=== PATIENT | female | born 1965 | race Caucasian/White ===

== ENCOUNTER 2017-10-10 12:24 | Day surgery (SDC) | payer MEDICAID, SELFPAY ==
[2017-10-10 12:45] VITALS: BP 149/88; PULSE 87; RESP 17; O2SAT 98; BMI 32.9
[2017-10-10 13:18] VITALS: BP 140/78; PULSE 82; RESP 18; O2SAT 99
[2017-10-10 13:22] VITALS: BP 136/92; PULSE 85; RESP 20; O2SAT 97
[2017-10-10 13:23] VITALS: BP 143/89; PULSE 87; RESP 18; O2SAT 96
--- NOTE | 2017-10-10 14:23 | HMH.PMPROC ---
- Procedure Date: 10/10/17 Time: 14:23 Anesthesiologist:: Jamie Capone MD Complications:: None Pre-procedure Diagnosis:: Degenerative disc disease of cervical spine with cervical radiculopathy symptoms and cervical postlaminectomy syndrome Post-procedure Diagnosis:: Same Indications for Procedure:: This patient is a pleasant 51-year-old white female who we are treating for neck pain with some radiculopathy symptoms. She is doing very well with her intrathecal pain pump. Motor strength of the upper extremities is 5/5. There is no gross sensory deficit. She does have a normal gait. She does have some increasing pain with increased activity. We will refill her pump and increase her infusion today. Procedure Details:: Informed consent was obtained and the risks and benefits of the procedure was explained to the patient. The patient was taken to the procedure room. The pump was interrogated. The area over the pump was prepped using ChloraPrep. The pump was accessed with a 22-gauge needle. Approximately 8 mL's of the intrathecal solution was withdrawn and discarded. The pump was then refilled with 20 mL's of intrathecal Dilaudid 5 mg/mL. The pump was interrogated and the infusion was increased to 0.55 mg per day. The patient tolerated the procedure well with no complication. Plan and Disposition:: We will follow-up with her in 3-4 months for next pump refill. If she has any problems or questions she is to call us in the pain clinic.
== END 2017-10-10 13:19 | disposition home or self-care (01) ==
LOC: SC.PAINP 12:26
PROVIDERS: Family Provider Emergency Medicine; PCP Emergency Medicine; Visit Provider Nurse Anesthetist, Certified Registered
DX: M50.30 Other cervical disc degeneration, unspecified cervical region (principal); M96.1 Postlaminectomy syndrome, not elsewhere classified
CPT/HCPCS: 62370

== ENCOUNTER → 2017-11-12 09:56 | Outpatient (POV) | payer MEDICAID, SELFPAY ==
[2017-11-12 10:02] VITALS: BP 127/88; PULSE 78; RESP 16; O2SAT 97; BMI 32.9
--- NOTE | 2017-11-12 10:51 | HMH.PAINSOAP ---
[facility] Pain Management SOAP Note Subjective:: Patient is a pleasant 52-year-old white female who presents today to discuss swelling. Patient has had a pain pump for several months. Patient has been doing very well and her pain is very well controlled. Patient rates her pain a 4-10 today. Patient's current medication is Dilaudid 0.55 mg a day. Patient states that over the last 3 months she is noted swelling bilaterally in her legs. Patient has not gone to her PCP about this. Patient states that nothing aggravates the symptoms But elevation has not relieved the swelling. ROS General: no recent weight change, no fever, no sleep disturbances Respiratory: no cough, asthma, no recurring pulmonary infections Cardiovascular/Peripheral Vascular: No chest pain, No palpitations, 1+ edema bilateral lower extremities, no shortness of breath. Gastrointestinal: no incontinence, normal bowel movements reported Genitourinary: no incontinence Musculoskeletal: neck pain Psychiatric: normal mood/ affect Neurological: [denies weakness in extremities], [denies balance issues] Objective:: Physical Exam General: Alert and oriented x3, no acute distress, pleasant and cooperative, [on room air] Lungs: Resps E/U, Symmetrical chest expansion Musculoskeletal: Flexion and extension of lumbar spine somewhat guarded secondary to pain, deep tendon reflexes normal, strength in upper and lower extremities [5/5], normal gait noted Neurological: speech clear, emergency medicine medical director equal, no gross sensory deficits Cardiovascular/Peripheral Vascular: No chest pain, No palpitations, 1+ edema bilateral lower extremities, no shortness of breath. negative Homans sign Assessment:: Degenerative disc disease of cervical spine with cervical radiculopathy, cervical postlaminectomy syndrome Plan:: Patient is doing well with her pump settings at this time. I like her to go to her primary care provider to do some additional testing with this current swelling. Patient states she does have a heart history in her family. I will give the patient Lasix 20 mg once daily for 4 days help with some comfort prior to her PCP visit. I discussed signs and symptoms of DVT. Patient states she will watch out for this she will also make an appointment with her primary care provider as soon as possible. We will follow-up with her at her next refill.
--- NOTE | 2017-11-12 10:54 | P.CONS_ITS ---
[facility] Pain Management SOAP Note Subjective:: Patient is a pleasant 52-year-old white female who presents today to discuss swelling. Patient has had a pain pump for several months. Patient has been doing very well and her pain is very well controlled. Patient rates her pain a 4-10 today. Patient's current medication is Dilaudid 0.55 mg a day. Patient states that over the last 3 months she is noted swelling bilaterally in her legs. Patient has not gone to her PCP about this. Patient states that nothing aggravates the symptoms But elevation has not relieved the swelling. ROS General: no recent weight change, no fever, no sleep disturbances Respiratory: no cough, asthma, no recurring pulmonary infections Cardiovascular/Peripheral Vascular: No chest pain, No palpitations, 1+ edema bilateral lower extremities, no shortness of breath. Gastrointestinal: no incontinence, normal bowel movements reported Genitourinary: no incontinence Musculoskeletal: neck pain Psychiatric: normal mood/ affect Neurological: [denies weakness in extremities], [denies balance issues] Objective:: Physical Exam General: Alert and oriented x3, no acute distress, pleasant and cooperative, [ on room air] Lungs: Resps E/U, Symmetrical chest expansion Musculoskeletal: Flexion and extension of lumbar spine somewhat guarded secondary to pain, deep tendon reflexes normal, strength in upper and lower extremities [5/5], normal gait noted Neurological: speech clear, 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 negative Homans sign Assessment:: Degenerative disc disease of cervical spine with cervical radiculopathy, cervical postlaminectomy syndrome Plan:: Patient is doing well with her pump settings at this time. I like her to go to her primary care provider to do some additional testing with this current swelling. Patient states she does have a heart history in her family. I will give the patient Lasix 20 mg once daily for 4 days help with some comfort prior to her PCP visit. I discussed signs and symptoms of DVT. Patient states she will watch out for this she will also make an appointment with her primary care provider as soon as possible. We will follow-up with her at her next refill.
[2017-11-12 13:24] LABS: Amphetamine/Metha Screen,Urine Negative ng/mL (<1000); Barbiturates Screen,Urine Negative ng/mL (<200); Benzodiazepines Screen,Urine Negative ng/mL (200); Cannabinoid Screen,Urine Negative ng/mL (<50); Cocaine Screen,Urine Negative ng/g (<300); Methadone Screen,Urine Negative ng/mL (<300); Opiate Screen,Urine Positive ng/mL (<300); Phencyclidine Screen,Urine Negative ng/mL (<25)
--- NOTE | 2017-11-12 15:14 | PC.PHONENOTE ---
Rx for lasix 20mg daily for 4 days called in to pt pharmacy per provider order
[2017-11-18 16:13] LABS: Codeine Negative (Cutoff=100); Hydrocodone Negative (Cutoff=100); Hydromorphone Positive (.); Morphine Negative (Cutoff=100)
[2017-11-18 17:15] LABS: Opiates Positive (.)
== END ==
PROVIDERS: Family Provider Emergency Medicine; PCP Emergency Medicine; Visit Provider Clinical Nurse Specialist Family Health
DX: M54.12 Radiculopathy, cervical region (principal)
CPT/HCPCS: 99212; 80305; 80361; 80365; G0480

== ENCOUNTER → 2017-12-10 14:48 | Outpatient (REF) | payer MEDICAID, SELFPAY ==
[2017-12-10 18:29] LABS: Basophils % 0.7 % (0.1-2.0); Eosinophils # 0.2 K/mm3 (0.0-0.4); Hematocrit 45.8 % (37.0-47.0); Hemoglobin 15.5 g/dL (12.2-16.2); Lymphocytes # 2.5 K/mm3 (0.7-4.5); Lymphocytes % 42.7 K/mm3 (10-50); Mean Corpuscular HGB Conc 33.7 g/dL (31.8-35.4); Mean Corpuscular Hemoglobin 30.2 pg (27.0-31.2); Mean Corpuscular Volume 89.6 fl (81-99); Mean Platelet Volume 7.9 fl (7.4-10.4); Monocytes # 0.4 K/mm3 (0.1-1.0); Monocytes % 6.3 % (1.7-9.3); Neutrophils # 2.8 K/mm3 (1.8-7.8); Neutrophils % 47.3 % (37.0-80.0); Platelet Count 291 K/mm3 (142-424); Red Blood Count 5.12 M/mm3 (4.20-5.40); Red Cell Distribution Width 13.5 % (11.5-17.5); White Blood Count 5.9 K/mm3 (4.8-10.8)
[2017-12-10 19:23] LABS: Alanine Aminotransferase 48 U/L (12-78); Albumin Level 3.7 gm/dL (3.4-5.0); Albumin/Globulin Ratio 1.1 (1.1-1.8); Alkaline Phosphatase 95 U/L (46-116); Anion Gap 11.9 mEq/L (5-15); Aspartate Amino Transferase 22 U/L (15-37); Bilirubin,Total 0.3 mg/dL (0.2-1.0); Blood Urea Nitrogen 9 mg/dL (7-18); Carbon Dioxide 29 mmol/L (21.0-32.0); Chloride 105 mmol/L (98-107); Creatinine,Serum 0.65 mg/dL (0.55-1.02); Estimated Glomerular Filt Rate 96 ml/min (>60); Free T4 (Free Thyroxine) 0.94 ng/dl (0.76-1.46); GFR (African American) 116 ML/MIN (>60); Globulin 3.3 gm/dl (1.3-3.2); Glucose 81 mg/dL (74-106); Potassium 3.9 mmoL/L (3.5-5.1); Sodium 142 mmol/L (136-145); Thyroid Stimulating Hormone 8.35 uIU/ml (0.358-3.740)
== END ==
LOC: LAB 14:48
PROVIDERS: Visit Provider Emergency Medicine
DX: M79.89 Other specified soft tissue disorders (principal); Z12.11 Encounter for screening for malignant neoplasm of colon; K21.9 Gastro-esophageal reflux disease without esophagitis
CPT/HCPCS: 80053; 84439; 84443; 85025

== ENCOUNTER → 2017-12-27 09:15 | Outpatient (CLI) | payer MEDICAID, SELFPAY ==
--- NOTE | 2017-12-27 09:18 | MM_ITS ---
MM Dig screening mamm BI w/CAD CAD Screening ORDERING PHYSICIAN : German Walter MD PATIENT AGE: 52 years GENDER: Femal INDICATION: No hormones no new complaints Family history: Sr. with breast cancer in her 40s. Paternal aunt postmenopausal TECHNIQUE: Standard CC and MLO images were obtained. R2 CAD reviewed. COMPARISON: No previous BASELINE MAMMOGRAM. FINDINGS: Minimal to moderate breast density . Mild/moderate fibroglandular elements most evident at the anterior central breast extending mainly towards upper-outer quadrant No dominant mass in either breast. RIGHT BREAST:Small loose cluster of fairly punctate calcifications at the upper outer quadrant right breast LEFT BREAST:. Numerous scattered small and tiny punctate calcifications are seen basically extending from superior retroareolar region towards upper-outer quadrant left breast. The generally diffuse scattered character here most likely reflecting adenosis, although there are numerous tiny calcifications also seen in these areas with defecation views. No branching forms. Because of the latter tiny calcifications a would suggest the patient return for CC and 90 degree large paddle 1.5 magnification views better characterize & serve as a baseline reference. On also note that some tiny punctate calcifications also extending medial on the cc view which may be included as well ====IMPRESSION========= . No dominant nor suspicious mass. LEFT BREAST: However there are innumerable small punctate calcification seen throughout the left breast. These tiny calcifications most likely reflect benign adenosis but given the numerous very tiny background calcifications, I would suggest magnification views to further evaluate RIGHT BREAST: Also note Small cluster of punctate calcifications upper-outer quadrant right breast. These appear Benign but would also benefit from magnification views when the patient returns BI-RADS Category: 0 Need Additional Imaging Evaluaiton RECOMMENDED FOLLOW-UP: IMM - IMMEDIATE FOLLOW-UP RECOMMENDED (A letter has been sent to the patient regarding results of the study.)
== END ==
PROVIDERS: Family Provider Emergency Medicine; PCP Emergency Medicine; Visit Provider Emergency Medicine
DX: Z12.31 Encounter for screening mammogram for malignant neoplasm of breast (principal)
CPT/HCPCS: 77067

== ENCOUNTER → 2018-01-08 14:26 | Outpatient (CLI) | payer MEDICAID, SELFPAY ==
--- NOTE | 2018-01-08 14:28 | MM_ITS ---
MM Dig spot mag LT COMPARISON: 12/27/2017 INDICATION: Follow-up abnormal mammogram ORDERING PHYSICIAN: German Walter MD PATIENT AGE: 52 years TECHNIQUE: Problem-solving views of both breasts FINDINGS: Right breast: Scattered foci of calcification are noted. The cluster of calcifications in the upper outer aspect of the right breast probably benign. Loosely clustered calcifications noted in the left breast the upper outer aspect having a smudgy appearance likely due to adenosis. Well-circumscribed nodular opacity is noted in the outer left breast measuring 5 mm and within the medial aspect of left breast also a 5 mm. These are probably benign. There was an additional 9 mm opacity in the lateral aspect of the left breast. Ultrasound is suggested of these nodules. IMPRESSION: Bilateral calcifications appear probably benign. There are 3 densities of the left breast the largest in the upper outer aspect at 9 mm. Ultrasound recommended. BI-RADS Category: 0 Need Additional Imaging Evaluation RECOMMENDED FOLLOW-UP: IMM - IMMEDIATE FOLLOW-UP RECOMMENDED Suggest ultrasound left breast and bilateral 6 month mammographic follow-up concerning the calcifications (A letter has been sent to the patient regarding results of the study.)
== END ==
PROVIDERS: Family Provider Emergency Medicine; PCP Emergency Medicine; Visit Provider Emergency Medicine
DX: R92.8 Other abnormal and inconclusive findings on diagnostic imaging of breast (principal)
CPT/HCPCS: 77065; 77066

== ENCOUNTER → 2018-02-01 14:32 | Outpatient (CLI) | payer MEDICAID, SELFPAY ==
--- NOTE | 2018-02-01 14:33 | US_ITS ---
US breast LT complete INDICATION: Follow-up abnormal mammogram ORDERING PHYSICIAN: NATY Guzmán PATIENT AGE: 52 years COMPARISON: 01/08/2018 TECHNIQUE: Ultrasound performed the left breast and axilla FINDINGS: 1:00 there is a 4 x 2 mm hypoechoic area. At 2:00 there is a 7 x 7 mm hypoechoic area. At 10:00 there is a 4 mm hypoechoic region. These areas are probably related to cysts. There are some low-level echoes within the abnormalities however may be related to the technique. There is enhanced through transmission of sound. No suspicious nodules evident IMPRESSION: Hypoechoic abnormalities of the left breast as described above compatible with cysts. There are some low level echoes within these regions but may related to the technique. On the mammogram there was a 9 mm nodular opacity in the lateral aspect of the left breast probably related to overlapping fibroglandular tissue as there did appear to be some interspersed fat in this area. BI-RADS Category: 3 Benign Finding Short Term Follow-up RECOMMENDED FOLLOW-UP: 6M - 6 MONTH FOLLOW-UP Recommend 6 month sonographic and mammographic follow-up in June 2018 (A letter has been sent to the patient regarding results of the study.)
== END ==
PROVIDERS: Family Provider Emergency Medicine; PCP Emergency Medicine; Visit Provider Physician Assistant
DX: R92.8 Other abnormal and inconclusive findings on diagnostic imaging of breast (principal)
CPT/HCPCS: 76641

== ENCOUNTER → 2018-03-04 15:00 | Outpatient (POV) | payer MEDICAID, SELFPAY ==
--- NOTE | 2018-03-04 15:42 | HMH.PMPROC ---
- Procedure Date: 03/04/18 Time: 15:30 Anesthesiologist:: Beverly Ross APRN Complications:: None Pre-procedure Diagnosis:: Degenerative disc disease of the cervical spine with cervical radiculopathy cervical postlaminectomy syndrome Post-procedure Diagnosis:: Same Indications for Procedure:: Patient is a pleasant 52-year-old white female who presents today for her thecal pain pump adjustment. Patient is doing quite well on her intrathecal infusion of Dilaudid at 0.55 mg per day. However lately she has had increasing pain. She rates her pain a 7 out of 10 today. Patient states that this occurred about a week ago. Patient does have relief with her boluses. We will increase her today. Patient denies side effects to the medication. Physical Exam General: Alert and oriented x3, no acute distress, pleasant and cooperative, [on room air] Lungs: Resps E/U, Symmetrical chest expansion, Eyes: PERRL Musculoskeletal: Flexion and extension of cervical spine somewhat guarded secondary to pain, deep tendon reflexes normal, strength in upper and lower extremities [5/5], slightly antalgic gait Neurological: speech clear, competitive intelligence manager equal, no gross sensory deficits Procedure Details:: Informed consent was obtained and the risk and benefits of the procedure were explained to the patient. The patient was taken to the procedure room where noninvasive monitoring was placed including noninvasive blood pressure cuff and pulse oximeter. Patient's pump was interrogated. The infusion rate was increased to 0.7 mg per day and the boluses increased to 0.07 mg per activation with a total of 4 activations allowed today. The patient tolerated the procedure well. Plan and Disposition:: I will follow-up with this patient at her next pain pump refill. Patient has been instructed to call the office she has any issues prior to her next appointment. This note was dictated using voice recognition software and may contain errors or omissions
--- NOTE | 2018-03-04 15:45 | P.PCN_ITS ---
- Procedure Date: 03/04/18 Time: 15:30 Anesthesiologist:: Beverly Ross APRN Complications:: None Pre-procedure Diagnosis:: Degenerative disc disease of the cervical spine with cervical radiculopathy cervical postlaminectomy syndrome Post-procedure Diagnosis:: Same Indications for Procedure:: Patient is a pleasant 52-year-old white female who presents today for her thecal pain pump adjustment. Patient is doing quite well on her intrathecal infusion of Dilaudid at 0.55 mg per day. However lately she has had increasing pain. She rates her pain a 7 out of 10 today. Patient states that this occurred about a week ago. Patient does have relief with her boluses. We will increase her today. Patient denies side effects to the medication. Physical Exam General: Alert and oriented x3, no acute distress, pleasant and cooperative, [ on room air] Lungs: Resps E/U, Symmetrical chest expansion, Eyes: PERRL Musculoskeletal: Flexion and extension of cervical spine somewhat guarded secondary to pain, deep tendon reflexes normal, strength in upper and lower extremities [5/5], slightly antalgic gait Neurological: speech clear, quality worker equal, no gross sensory deficits Procedure Details:: Informed consent was obtained and the risk and benefits of the procedure were explained to the patient. The patient was taken to the procedure room where noninvasive monitoring was placed including noninvasive blood pressure cuff and pulse oximeter. Patient's pump was interrogated. The infusion rate was increased to 0.7 mg per day and the boluses increased to 0.07 mg per activation with a total of 4 activations allowed today. The patient tolerated the procedure well. Plan and Disposition:: I will follow-up with this patient at her next pain pump refill. Patient has been instructed to call the office she has any issues prior to her next appointment. This note was dictated using voice recognition software and may contain errors or omissions
== END ==
PROVIDERS: Family Provider Emergency Medicine; PCP Emergency Medicine; Visit Provider Clinical Nurse Specialist Family Health
DX: M54.12 Radiculopathy, cervical region (principal)
CPT/HCPCS: 95991

== ENCOUNTER → 2018-03-06 11:13 | Outpatient (REF) | payer MEDICAID, SELFPAY ==
[2018-03-06 13:40] LABS: Free T4 (Free Thyroxine) 0.93 ng/dl (0.76-1.46); Thyroid Stimulating Hormone 6.41 uIU/ml (0.358-3.740)
== END ==
LOC: LAB 11:13
PROVIDERS: Visit Provider Emergency Medicine
DX: E03.9 Hypothyroidism, unspecified (principal); E07.9 Disorder of thyroid, unspecified
CPT/HCPCS: 84439; 84443

== ENCOUNTER → 2018-07-11 13:25 | Outpatient (CLI) | payer MEDICAID, SELFPAY ==
--- NOTE | 2018-07-11 13:26 | MM_ITS ---
MM Dig mamm BI DX w/CAD, US breast RT complete, US breast LT complete INDICATION: Follow-up abnormal mammogram ORDERING PHYSICIAN: German Walter MD PATIENT AGE: 52 years COMPARISON: 02/08 and 01/08/2018 TECHNIQUE: Standard images performed along with spot compression mag views and bilateral breast ultrasound FINDINGS: Right breast: Average fibroglandular tissue. Loosely clustered calcifications are once again noted in the upper outer aspect of the right breast.. These do not appear significantly changed. There is a small nodular opacity in the medial aspect of the right breast which didn't appear to compress out on spot compression view Right breast ultrasound: 4 mm x 7 mm complex cyst at 1:00 near the nipple. Small nodes in the right axilla. Left breast: Asymmetric retroareolar density once again noted and does not appear significantly changed. Benign-appearing calcifications are once again noted in the retroareolar region. There is persistent 9 mm nodular opacity in the outer aspect of the left breast. Similar to the previous exam. In addition, there is a benign-appearing rounded 4 mm nodule in the lateral periareolar region.. Left breast ultrasound: 5 mm cyst at 1:00 near the nipple corresponding to one of the mammographic abnormalities. 4 mm cyst at 3:00, 4 mm cyst at 4:00, 9 mm hypoechoic nodule at 9:00 probably due to small cyst In addition, there is an 8 x 4 mm septated cyst at 3:00 corresponding to the mammographic abnormality IMPRESSION: Probably Benign findings, no evidence of malignancy. Bilateral breast cysts and bilateral benign-appearing calcifications which appear stable. Complex cyst lateral aspect of left breast felt to correspond to the nodule in the lateral aspect of left breast which are stable mammographically BI-RADS Category: 3 Probably Benign Finding Short Term Follow-up RECOMMENDED FOLLOW-UP: 6M - 6 MONTH FOLLOW-UP (A letter has been sent to the patient regarding results of the study.)
== END ==
PROVIDERS: Family Provider Emergency Medicine; PCP Emergency Medicine; Visit Provider Emergency Medicine
DX: R92.8 Other abnormal and inconclusive findings on diagnostic imaging of breast (principal)
CPT/HCPCS: 76641; 77066

== ENCOUNTER → 2018-10-15 13:21 | Outpatient (CLI) | payer MEDICAID, SELFPAY ==
[2018-10-15 14:50] LABS: Alanine Aminotransferase 58 U/L (12-78); Albumin Level 3.8 gm/dL (3.4-5.0); Albumin/Globulin Ratio 1.1 (1.1-1.8); Alkaline Phosphatase 101 U/L (46-116); Anion Gap 12.9 mEq/L (5-15); Aspartate Amino Transferase 32 U/L (15-37); Bilirubin,Total 0.8 mg/dL (0.2-1.0); Blood Urea Nitrogen 11 mg/dL (7-18); Calcium 9.4 mg/dL (8.5-10.1); Carbon Dioxide 30 mmol/L (21.0-32.0); Chloride 101 mmol/L (98-107); Cholesterol 186 mg/dL (140-200); Estimated Glomerular Filt Rate 75 ml/min (>60); GFR (African American) 91 ML/MIN (>60); Globulin 3.6 gm/dl (1.3-3.2); Glucose 100 mg/dL (74-106); HDL Cholesterol 46 mg/dL (29-89); LDL Cholesterol 119 mg/dL (0-130); Potassium 3.9 mmoL/L (3.5-5.1); Sodium 140 mmol/L (136-145); Thyroid Stimulating Hormone 53.97 uIU/ml (0.358-3.740); Total Protein,Serum 7.4 gm/dL (6.4-8.2); Triglycerides 106 mg/dL (30-200); VLDL Cholesterol 21 mg/dL (0-40)
== END ==
PROVIDERS: Visit Provider Nurse Practitioner Family
DX: M79.89 Other specified soft tissue disorders (principal); R06.02 Shortness of breath
CPT/HCPCS: 80053; 80061; 82652; 83880; 84443

== ENCOUNTER → 2018-12-12 13:52 | Outpatient (CLI) | payer MEDICAID, SELFPAY ==
[2018-12-12 15:07] LABS: Thyroid Stimulating Hormone 5.19 uIU/ml (0.358-3.740)
== END ==
PROVIDERS: Visit Provider Nurse Practitioner Family
DX: E03.9 Hypothyroidism, unspecified (principal)
CPT/HCPCS: 84443

== ENCOUNTER → 2019-01-08 07:15 | Outpatient (CLI) | payer MEDICAID, SELFPAY ==
--- NOTE | 2019-01-08 07:16 | NM_ITS ---
CARDIOLITE SPECT MYOCARDIAL PERFUSION LEXISCAN, REST AND STRESS: [facility] REVIEW QGS EF AND WALL MOTION EVALUATION: QPS - PERFUSION EVALUATION HISTORY: Chest pain, SOB, Palpitations, Syncope, Fatigue, HTN, Former smoker, Family history DOSE: 10.26 mCi technetium 99m mibi intravenously at rest followed by 32.4 mCi technetium 99m mibi following the intravenous ministration of 0.4 mg of Lexiscan. Resting blood pressure is 128/66. Stress blood pressure 129/79. FINDINGS: Ejection fraction is calculated to be 69%. Decreased myocardial activity in the anterior wall with both stress and rest. Gated images calculated ejection fraction of 69% with normal wall motion IMPRESSION: Although this test is consistent with breast attenuation clinical correlation is still advised. Normal ejection fraction normal wall motion
--- NOTE | 2019-01-08 08:11 | HMH.ITSHM ---
Current Home Medications as stated by this patient Zenaida Jarvis or sales representative uniforms. []BUPROPION LEVOTHYROXINE FUROSEMIDE LISINOPRIL
== END ==
PROVIDERS: PCP Emergency Medicine; Visit Provider Internal Medicine
DX: R06.02 Shortness of breath (principal); R60.9 Edema, unspecified; I10 Essential (primary) hypertension; Z82.49 Family history of ischemic heart disease and other diseases of the circulatory system
CPT/HCPCS: 78452; 93017; 93306; A9502; J2785

== ENCOUNTER → 2019-01-10 13:18 | Outpatient (CLI) | payer MEDICAID, SELFPAY ==
--- NOTE | 2019-01-10 13:19 | US_ITS ---
US breast RT complete, US breast LT complete, MM Dig mamm BI DX w/CAD Ordering Physician: Amber Johnson APRN Patient Age: 53 years: Female HISTORY: ITS.REASON: 6 mth f/u TECHNIQUE 1. Bilateral digital mammogram, with Spot magnification views left breast 2. Bilateral breast ultrasound COMPARISON : December 2017, June 2018 bilateral mammograms. Right breast ultrasound June 2018 Left breast ultrasound June 2018 and January 2018 ========= BILATERAL DIAGNOSTIC MAMMOGRAM with CAD, & SPot Views left breast . tiny calcifications at the superior end level retroareolar region left breast are again noted. These appear to be small punctate calcifications most compatible with benign adenosis. They tend to scatter and dissipate more on the cc view within the MLO view or 90 degree view. Right Breast: No significant new findings. Small punctate benign-appearing tiny calcifications loosely grouped at the superior right breast again noted. They become fairly and stable on MLO but but are very slightly more evident on today's cc view.,. More likely benign but Follow-up 6-8 months would be helpful since the patient will return for left breast. Left Breast We again see the innumerable small punctate calcifications are fairly scattered and anterior/lateral left breast... One area of grouping is seen at the lateral retroareolar region and another is slightly more peripheral towards upper outer quadrant left breast.. However there are no branching forms & no focal areas of greater concern. No appreciable change. Biopsy is replaced entertained strongly favor these features reflect stable benign adenosis/fibrocystic calcifications.--This diagnosis by far most likely. And there is been no significant nor definitive change since December 2013 mammograms. Also Given the rather diffuse scattered character on the cc view a believe follow-up would be the most appropriate . Area labeled X... Small 4.8 mm area of nodularity similar sized slightly denser at the lateral retroareolar region. Most likely with a small cyst seen on subsequent ultrasound. Area labeled Y. Vague low-density question area of again seen at the deep lateral left breast with no prominent change since 2018.. Actually larger but this seems to be merely projectional. This feature does warrant follow-up. Questionably could correspond with the vague 1 cm density hypoechoic area noted onset ultrasound. ======== ULTRASOUND BILATERAL BREAST. Lateral Survey of the entire both breast; with included axillary survey bilateral ....LEFT BREAST ULTRASOUND...... 12:00... There is. 3.5 mm cyst. O'clock. 1:00: Vague hypoechoic area 12 mm length x 1.6 mm AP at at 1:00 behind the nipple. On ultrasound I suspect this is most likely in a focal area of glandular tissue however noting there is a vague density here on mammography aren't suggest follow-up. It has a relatively benign appearance on ultrasound as well is low density on mammography in this follow-up of this most likely benign feature most appropriate at this juncture.. Follow-up left mammogram and ultrasound 6 months suggested here. This is labeled Y. 2:00. Small 5.4 mm cyst. Deep Outer breast 9:00. Small 3.2 mm cyst. 9:00. 4.7 mm cyst cyst a more inclined the help on endometrial pelvis the days any more but a few Scattered benign axillary left nodes again observed. ... RIGHT BREAST ULTRASOUND 1:00. Small 5.8 mm cystic area behind nipple.-smaller than on 2017 ultrasound.. No other areas of minimal within the breast itself. A few normal benign appearing axillary left nodes-largest 1.9 cm length. ===== ....IMPRESSION:... ========= LEFT BREAST. 1.. Vague 1 cm area labeled Y on mammography appears similar size-only question scant more generous seminal today's pr
== END ==
PROVIDERS: PCP Nurse Practitioner Family; Visit Provider Nurse Practitioner Family
DX: R92.8 Other abnormal and inconclusive findings on diagnostic imaging of breast (principal)
CPT/HCPCS: 76641; 77066

== ENCOUNTER → 2019-01-27 12:08 | Outpatient (CLI) | payer MEDICAID, SELFPAY ==
[2019-01-27 13:10] VITALS: PULSE 77; PULSE 81
== END ==
PROVIDERS: PCP Emergency Medicine; Visit Provider Urology
DX: R06.02 Shortness of breath (principal); I10 Essential (primary) hypertension; E78.5 Hyperlipidemia, unspecified; Z87.891 Personal history of nicotine dependence; Z82.49 Family history of ischemic heart disease and other diseases of the circulatory system
CPT/HCPCS: 94060; 94640; 94726; 94729

== ENCOUNTER → 2019-02-12 11:42 | Outpatient (CLI) | payer MEDICAID, SELFPAY ==
--- NOTE | 2019-02-12 12:11 | XR_ITS ---
XR chest 2V HISTORY: ITS.REASON: dyspnea ORDERING PHYSICIAN: NATY Suh PATIENT AGE: 53 years COMPARISON: 05/11/2018 FINDINGS: The cardiomediastinal silhouette and pulmonary vascularity are within normal limits. The lungs are clear without infiltrates, suspicious nodules, or pleural effusions. There is a bone plate over lower cervical spine. Calcified granuloma is present in the right lung base No acute bony abnormalities. IMPRESSION: No change with no acute finding
[2019-02-12 12:53] LABS: Anion Gap 9.6 mEq/L (5-15); Blood Urea Nitrogen 9 mg/dL (7-18); Carbon Dioxide 33 mmol/L (21.0-32.0); Chloride 102 mmol/L (98-107); Creatinine,Serum 0.76 mg/dL (0.55-1.02); Estimated Glomerular Filt Rate 80 ml/min (>60); GFR (African American) 96 ML/MIN (>60); Glucose 109 mg/dL (74-106); Potassium 4.6 mmoL/L (3.5-5.1); Sodium 140 mmol/L (136-145)
== END ==
PROVIDERS: Visit Provider Physician Assistant
DX: E78.5 Hyperlipidemia, unspecified (principal); I10 Essential (primary) hypertension; R00.2 Palpitations; R06.02 Shortness of breath; Z82.49 Family history of ischemic heart disease and other diseases of the circulatory system; Z87.891 Personal history of nicotine dependence
CPT/HCPCS: 36415; 71046; 80048; 83880; 93270

== ENCOUNTER → 2019-03-31 17:11 | Outpatient (CLI) | payer MEDICAID, SELFPAY ==
[2019-03-31 17:49] LABS: Thyroid Stimulating Hormone 8.03 uIU/ml (0.358-3.740)
== END ==
PROVIDERS: Visit Provider Nurse Practitioner Family
DX: E03.9 Hypothyroidism, unspecified (principal)
CPT/HCPCS: 84443

== ENCOUNTER → 2019-04-01 11:07 | Outpatient (POV) | payer MEDICAID, SELFPAY ==
[2019-04-01 11:48] VITALS: BP 146/62; PULSE 73; RESP 18; O2SAT 98; BMI 39.1
--- NOTE | 2019-04-01 13:07 | HMH.PMPROC ---
- Procedure Date: 04/01/19 Time: 11:30 Anesthesiologist:: Beverly Ross APRN Complications:: None Pre-procedure Diagnosis:: Degenerative disc disease lumbar spine with lumbar radiculopathy degenerative disc disease cervical spinal cervical radiculopathy and cervical postlaminectomy syndrome Post-procedure Diagnosis:: Same Indications for Procedure:: Patient is a pleasant 53-year-old white female who presents today for intrathecal pain pump adjustment. She rates her pain today a 6 out of 10. She has had swelling for quite some time. It has not seem to be affected with any kind of medication changes in regards to upping and lowering the dose of her Dilaudid however we will put her on a periodic flow today to see if this is beneficial for her to see if it decreases her swelling. She is also working with cardiology to help determine if she has any cardiac issues. She denies any urinary retention or excessive sleepiness. She is currently on a Dilaudid infusion of 1 mg/day. Physical Exam General: Alert and oriented x3, no acute distress, pleasant and cooperative, [on room air] Lungs: Resps E/U, Symmetrical chest expansion, Eyes: PERRL Musculoskeletal: Flexion and extension of lumbar spine somewhat guarded secondary to pain, deep tendon reflexes normal, strength in upper and lower extremities [5/5], slightly antalgic gait noted Neurological: speech clear, echocardiographer equal, no gross sensory deficits Procedure Details:: Informed consent was obtained and the risk and benefits of the procedure were explained to the patient. The patient was taken to the procedure room where noninvasive monitoring was placed including noninvasive blood pressure cuff and pulse oximeter. Patient's pump was interrogated and reprogrammed. The infusion rate was changed to a Dilaudid infusion of 0.16 mg every 4 hours. The patient tolerated the procedure well. Plan and Disposition:: Patient is good to see if this changes anything with her swelling. She is to notify us. She is going to follow-up with us after she sees cardiology again. She is been instructed to call the office if she has any issues prior to this appointment. Dr. Capone has reviewed this note and agrees with this plan of care. This note was dictated using voice recognition software and may contain errors or omissions
--- NOTE | 2019-04-01 13:10 | P.PCN_ITS ---
- Procedure Date: 04/01/19 Time: 11:30 Anesthesiologist:: Beverly Ross APRN Complications:: None Pre-procedure Diagnosis:: Degenerative disc disease lumbar spine with lumbar radiculopathy degenerative disc disease cervical spinal cervical radiculopathy and cervical postlaminectomy syndrome Post-procedure Diagnosis:: Same Indications for Procedure:: Patient is a pleasant 53-year-old white female who presents today for intrathecal pain pump adjustment. She rates her pain today a 6 out of 10. She has had swelling for quite some time. It has not seem to be affected with any kind of medication changes in regards to upping and lowering the dose of her Dilaudid however we will put her on a periodic flow today to see if this is beneficial for her to see if it decreases her swelling. She is also working with cardiology to help determine if she has any cardiac issues. She denies any urinary retention or excessive sleepiness. She is currently on a Dilaudid infusion of 1 mg/day. Physical Exam General: Alert and oriented x3, no acute distress, pleasant and cooperative, [on room air] Lungs: Resps E/U, Symmetrical chest expansion, Eyes: PERRL Musculoskeletal: Flexion and extension of lumbar spine somewhat guarded secondary to pain, deep tendon reflexes normal, strength in upper and lower extremities [5/5], slightly antalgic gait noted Neurological: speech clear, payroll accounting clerk equal, no gross sensory deficits Procedure Details:: Informed consent was obtained and the risk and benefits of the procedure were explained to the patient. The patient was taken to the procedure room where noninvasive monitoring was placed including noninvasive blood pressure cuff and pulse oximeter. Patient's pump was interrogated and reprogrammed. The infusion rate was changed to a Dilaudid infusion of 0.16 mg every 4 hours. The patient tolerated the procedure well. Plan and Disposition:: Patient is good to see if this changes anything with her swelling. She is to notify us. She is going to follow-up with us after she sees cardiology again. She is been instructed to call the office if she has any issues prior to this a ppointment. Dr. Capone has reviewed this note and agrees with this plan of care. This note was dictated using voice recognition software and may contain errors or omissions
== END ==
PROVIDERS: PCP Emergency Medicine; Visit Provider Clinical Nurse Specialist Family Health
DX: M51.36 Other intervertebral disc degeneration, lumbar region (principal); M50.10 Cervical disc disorder with radiculopathy, unspecified cervical region; M96.1 Postlaminectomy syndrome, not elsewhere classified
CPT/HCPCS: 62368

== ENCOUNTER → 2019-04-14 12:46 | Outpatient (POV) | payer MEDICAID, SELFPAY ==
[2019-04-14 13:11] VITALS: BP 146/86; PULSE 83; RESP 18; O2SAT 98; BMI 39.1
--- NOTE | 2019-04-14 14:29 | HMH.PMPROC ---
- Procedure Date: 04/14/19 Time: 13:00 Anesthesiologist:: Beverly Ross APRN Complications:: None Pre-procedure Diagnosis:: Degenerative disc disease lumbar spine with lumbar radiculopathy degenerative disc disease cervical spine with cervical radiculopathy and cervical postlaminectomy syndrome Post-procedure Diagnosis:: Same Indications for Procedure:: Patient is a pleasant 53-year-old white female who presents today for intrathecal pain pump adjustment. She is changed to a flex dose and is not doing as well with this. Patient was changed to see if her swelling will be affected with the decrease in medication. Patient swelling was not decreased. She is going to be seeing a rental sales agent for a second opinion. She rates her pain today an 8 out of 10. Her past dose was 1 mg a day constant flow. We will switch her back today. She denies side effects to her medication. [facility] #[id number] reviewed and appropriate. Physical Exam General: Alert and oriented x3, no acute distress, pleasant and cooperative, [on room air] Lungs: Resps E/U, Symmetrical chest expansion, Eyes: PERRL Musculoskeletal: Flexion and extension of lumbar spine somewhat guarded secondary to pain, deep tendon reflexes normal, strength in upper and lower extremities [5/5], [abnormal gait noted] Neurological: speech clear, release specialist equal, no gross sensory deficits Procedure Details:: Informed consent was obtained and the risk and benefits of the procedure were explained to the patient. The patient was taken to the procedure room where noninvasive monitoring was placed including noninvasive blood pressure cuff and pulse oximeter. Patient's pump was interrogated and reprogrammed. The infusion rate was 1 mg of Dilaudid a day on a constant flow. The patient tolerated the procedure well. Plan and Disposition:: I will see the patient back at her next intrathecal pain pump refill and reprogram she is been instructed to call the office if she has any issues prior to her next appointment. Dr. Capone has reviewed this note and agrees with this plan of care. This note was dictated using voice recognition software and may contain errors or omissions
== END ==
PROVIDERS: PCP Emergency Medicine; Visit Provider Clinical Nurse Specialist Family Health
DX: M51.16 Intervertebral disc disorders with radiculopathy, lumbar region (principal); M50.10 Cervical disc disorder with radiculopathy, unspecified cervical region; M96.1 Postlaminectomy syndrome, not elsewhere classified
CPT/HCPCS: 62368

== ENCOUNTER → 2019-07-07 17:12 | Outpatient (CLI) | payer MEDICAID, SELFPAY ==
[2019-07-07 18:43] LABS: Thyroid Stimulating Hormone 0.57 uIU/ml (0.358-3.740)
== END ==
PROVIDERS: Visit Provider Nurse Practitioner Family
DX: E07.9 Disorder of thyroid, unspecified (principal)
CPT/HCPCS: 84443

== ENCOUNTER → 2019-07-25 14:34 | Outpatient (CLI) | payer MEDICAID, SELFPAY ==
--- NOTE | 2019-07-25 14:36 | US_ITS ---
PROCEDURE: MM DIG MAMM BI DX W/CAD CLINICAL INDICATION: 6 mth f/u due after 07/12/19 The follow-up abnormal mammogram and ultrasound COMPARISON: [facility] MM Dig screening mamm BI w/CAD from 12/27/2017 MAGLT MM Dig spot mag LT from 01/08/2018 [facility] MM Dig mamm BI DX w/CAD from 07/11/2018 BREASTRT US breast RT complete from 01/10/2019 [facility] MM Dig mamm BI DX w/CAD from 01/10/2019 US BREAST LT COMPLETE from 07/25/2019 TECHNIQUE: Standard images performed along with Mag views of the left breast and left breast ultrasound FINDINGS: There is average fibroglandular tissue. On the right there are punctate calcifications once again noted in the retroareolar region. There is some slight increased density noted in the retroareolar region slightly superior on the MLO view which is less apparent on the mL view and is felt to be stable compared to multiple previous exams. Stable calcifications of the right breast. Left breast: There are numerous punctate calcifications in the retroareolar region and superior to the nipple similar to the previous exam. These do not appear significantly changed. No branching calcifications are apparent.. No change in 5 mm nodule in the left periatrial region laterally. Left breast ultrasound: 3 mm hypoechoic nodule at 12 o'clock. 5 mm cyst at 2 o'clock, 5 mm cyst 4 o'clock, 4 mm cyst 9 o'clock IMPRESSION: Bilateral breast calcifications which are probably benign. Calcifications appear similar compared to the previous study. They may be slightly more prominent compared to 01/10/2019. Therefore, continued six-month follow-up is suggested. Asymmetric density superior right breast probably benign. Recommend six-month follow-up with spot compression. Continued six-month follow-up suggested BI-RAD Category: 3 Probably Benign Finding Short Term Follow-up FOLLOW-UP: 6M 6Month Follow-up (A letter has been sent to the patient regarding results of the study.) Dictated by: Osiel Montalvo MD 07/29/2019 11:32 Electronically signed by Osiel Montalvo MD in [place] 07/29/2019 11:37
== END ==
PROVIDERS: PCP Nurse Practitioner Family; Visit Provider Nurse Practitioner Family
DX: R92.8 Other abnormal and inconclusive findings on diagnostic imaging of breast (principal)
CPT/HCPCS: 76641; 77066

== ENCOUNTER → 2019-08-04 11:25 | Outpatient (POV) | payer MEDICAID, SELFPAY ==
--- NOTE | 2019-08-04 12:34 | HMH.PMPROC ---
- Procedure Date: 08/04/19 Time: 11:25 Anesthesiologist:: Beverly Ross APRN Complications:: None Pre-procedure Diagnosis:: Degenerative disc disease lumbar spine with lumbar radiculopathy Post-procedure Diagnosis:: Same Indications for Procedure:: Patient is a pleasant 54-year-old white female who presents today for intrathecal pain pump adjustment. Patient is continuing to have swelling in her lower extremities. She has had cardiac and kidney issues ruled out. She is currently on 1 mg of Dilaudid a day. She would like an increase stating her pain is a 6 out of 10. Patient and I had a discussion in regards to changing out her medicine to see if this is what is causing her swelling. Physical Exam General: Alert and oriented x3, no acute distress, pleasant and cooperative, [on room air] Lungs: Resps E/U, Symmetrical chest expansion, Eyes: PERRL Musculoskeletal: Flexion and extension of bar spine somewhat guarded secondary to pain, deep tendon reflexes normal, strength in upper and lower extremities [5/5], lightly antalgic gait noted Neurological: speech clear, cable splicer apprentice equal, no gross sensory deficits Procedure Details:: Informed consent was obtained and the risk and benefits of the procedure were explained to the patient. The patient was taken to the procedure room where noninvasive monitoring was placed including noninvasive blood pressure cuff and pulse oximeter. Patient's pump was interrogated and reprogrammed. The infusion rate was increased to 1.3 mg of Dilaudid a day. The patient tolerated the procedure well. Plan and Disposition:: We will plan on switching the patient to fentanyl 50 mcg daily. We will order fentanyl 200 mcg/mL. I spoke with Dr. Capone in regards to this. We will fill the patient next week. Patient is instructed to call the office if she has any issues prior to her next appointment. Dr. Capone has reviewed this note and agrees with this plan of care. This note was dictated using voice recognition software and may contain errors or omissions
[2019-08-04 12:48] VITALS: BP 154/82; PULSE 76; RESP 18; O2SAT 98; BMI 36.7
== END ==
PROVIDERS: PCP Emergency Medicine; Visit Provider Clinical Nurse Specialist Family Health
DX: M51.16 Intervertebral disc disorders with radiculopathy, lumbar region (principal)
CPT/HCPCS: 62368

== ENCOUNTER → 2019-08-19 13:17 | Outpatient (POV) | payer MEDICAID, SELFPAY ==
[2019-08-19 13:36] VITALS: BP 141/89; PULSE 85; RESP 18; O2SAT 98; BMI 38.5
--- NOTE | 2019-08-19 13:45 | HMH.PMPROC ---
- Procedure Date: 08/19/19 Time: 13:45 Anesthesiologist:: Beverly Ross APRN Complications:: None Pre-procedure Diagnosis:: Degenerative disc disease lumbar spine with lumbar radiculopathy Post-procedure Diagnosis:: Same Indications for Procedure:: Patient is a very pleasant 54-year-old white female who presents today for follow-up. Patient was switched from Dilaudid to fentanyl. Patient's swelling has decreased significantly. She is on 40 mcg of fentanyl a day. She states that she would like a slight increase in her PTC set up. She denies any side effects to her medications. Physical Exam General: Alert and oriented x3, no acute distress, pleasant and cooperative, [on room air] Lungs: Resps E/U, Symmetrical chest expansion, Eyes: PERRL Musculoskeletal: Flexion and extension of lumbar spine somewhat guarded secondary to pain, deep tendon reflexes normal, strength in upper and lower extremities [5/5], [abnormal gait noted] Neurological: speech clear, manufacturing quality inspector equal, no gross sensory deficits Procedure Details:: Informed consent was obtained and the risk and benefits of the procedure were explained to the patient. The patient was taken to the procedure room where noninvasive monitoring was placed including noninvasive blood pressure cuff and pulse oximeter. Patient's pump was interrogated and reprogrammed. The infusion rate was increased to 50 mcg/day of fentanyl and her PTC was set up at 5 mcg every 6 hours as needed. The patient tolerated the procedure well. Plan and Disposition:: Follow-up with the patient in 3 to 4 weeks reassess her symptoms at that time she is been instructed to call the office if she has any issues prior to her next appointment. Dr. Capone has reviewed this note and agrees with this plan of care. This note was dictated using voice recognition software and may contain errors or omissions
== END ==
PROVIDERS: PCP Emergency Medicine; Visit Provider Clinical Nurse Specialist Family Health
DX: M51.16 Intervertebral disc disorders with radiculopathy, lumbar region (principal)
CPT/HCPCS: 62368

== ENCOUNTER → 2019-09-02 10:48 | Outpatient (POV) | payer MEDICAID, SELFPAY ==
[2019-09-02 11:07] VITALS: BP 144/78; PULSE 67; RESP 18; O2SAT 99; BMI 38.5
--- NOTE | 2019-09-02 11:34 | P.CONS_ITS ---
[facility] Pain Management SOAP Note Subjective:: Patient is a pleasant 54-year-old white female who presents today for follow-up. Overall patient is doing extremely well she was switched to fentanyl her swelling has subsided she rates the pain a 7 out of 10 however it is due to the weather. Patient states she needs no changes in her intrathecal infusion at this time. ROS General: no recent weight change, no fever, no sleep disturbances Respiratory: no cough, no shortness of air, no recurring pulmonary infections Cardiovascular/Peripheral Vascular: No chest pain, No palpitations, no edema, no shortness of breath. Gastrointestinal: no new onset incontinence, normal bowel movements reported Genitourinary: no new onset incontinence Musculoskeletal: Back pain, leg pain Psychiatric: normal mood/ affect, Neurological: [denies new onset weakness in extremities], [denies new onset balance issues] Objective:: Physical Exam General: Alert and oriented x3, no acute distress, pleasant and cooperative, Lungs: Resps E/U, Symmetrical chest expansion, Eyes: PERRL Musculoskeletal: Flexion and extension of lumbar spine somewhat guarded secondary to pain, deep tendon reflexes normal, strength in upper and lower extremities [5/5], [abnormal gait noted] Neurological: speech clear, collar baster jumpbasting equal, no gross sensory deficits Assessment:: Degenerative disc disease lumbar spine with lumbar radiculopathy Plan:: We will follow-up with the patient and her next intrathecal pain pump refill and reprogram she is been instructed to call the office if she has any issues prior to her next appointment. Dr. Capone has reviewed this note and agrees with this plan of care. This note was dictated using voice recognition software and may contain errors or omissions [facility] History I have reviewed the patient's past medical history: Yes Medical History: Reports:: Asthma, Depression, Gastroesophageal Reflux Disease(GERD), Hypertension Denies:: Cancer, Diabetes Mellitus Type 1, Diabetes Mellitus Type 2, Internal Pacemaker, Lung Disease, MRSA, Seizures *Have you ever received a pneumonia vaccine?: Yes *Have you received a flu vaccine this season?: Yes Other Medical History: Reports: Hypothyroidism, Other Other Surgeries: Yes: Cholecystectomy, Colonoscopy, EGD, Hysterectomy-Partial, Other. No: Pacemaker Amputation: No Fractures: No - *Social History Smoking Status: Never smoker Tobacco Type: cigarettes # Packs/Day (cigarettes): 1 #Yrs smoked (if former smoker): 20 Alcohol Intake: never Substance Use Type: denies use *Occupational Status:: other Housing: house Household Members: family *Travel in the last 8 weeks: None - Psychiatric History Pschychiatric History:: Reports:: Depression Family Hx:: Coronary Artery Disease, Heart Attack
== END ==
PROVIDERS: PCP Emergency Medicine; Visit Provider Clinical Nurse Specialist Family Health
DX: M51.16 Intervertebral disc disorders with radiculopathy, lumbar region (principal)
CPT/HCPCS: 99212

== ENCOUNTER → 2019-10-06 12:30 | Outpatient (CLI) | payer MEDICAID, SELFPAY ==
--- NOTE | 2019-10-06 12:33 | XR_ITS ---
PROCEDURE: XR ANKLE WT BEARING LT MIN 3V CLINICAL INDICATION: foot pain Foot and ankle pain COMPARISON: XR FOOT WT BEARING LT 3V from 10/06/2019 FINDINGS: Mild spurring is present at the tip of the medial malleolus and lateral malleolus. There is a small calcaneal spur and a small enthesophyte at the Achilles insertion. Mild hypertrophic changes are present at talonavicular joint. Normal alignment. No fracture or dislocation. No lytic or blastic change. IMPRESSION: Mild degenerative changes Dictated by: Osiel Montalvo MD 10/06/2019 13:37 Electronically signed by Osiel Montalvo MD in [place] 10/06/2019 13:37
--- NOTE | 2019-10-06 12:33 | XR_ITS ---
PROCEDURE: XR FOOT WT BEARING RT 3V CLINICAL INDICATION: foot pain Foot and ankle pain COMPARISON: XR ANKLE WT BEARING RT MIN 3V from 10/06/2019 FINDINGS: No fracture or dislocation. No lytic or blastic change. There is normal mineralization. Minimal osteoarthritic changes are present at ankle with mild spurring at the tibiotalar and fibulotalar joint at the medial and lateral malleolar region. There is normal alignment. There is small enthesophyte at the Achilles insertion a tiny spur at the plantar surface of the calcaneus. Other findings:None. IMPRESSION: Mild degenerative changes Dictated by: Osiel Montalvo MD 10/06/2019 13:35 Electronically signed by Osiel Montalvo MD in [place] 10/06/2019 13:35
== END ==
PROVIDERS: PCP Emergency Medicine; Visit Provider Nurse Practitioner
DX: M79.672 Pain in left foot (principal); M79.671 Pain in right foot; M25.572 Pain in left ankle and joints of left foot; M25.571 Pain in right ankle and joints of right foot
CPT/HCPCS: 73610; 73630

== ENCOUNTER → 2019-12-15 11:41 | Outpatient (POV) | payer MEDICAID, SELFPAY ==
[2019-12-15 12:22] VITALS: BP 133/78; PULSE 91; RESP 18; O2SAT 99; BMI 38.5
--- NOTE | 2019-12-15 13:03 | P.PCN_ITS ---
- Procedure Date: 12/15/19 Time: 13:03 Anesthesiologist:: Beverly Ross APRN Complications:: None Pre-procedure Diagnosis:: Degenerative disc disease lumbar spine with lumbar radiculopathy Post-procedure Diagnosis:: Same Indications for Procedure:: Patient is a pleasant 54-year-old white female presents today for intrathecal pain adjustment. Patient has been having increased pain rating it an 8 out of 10. She is currently on a 75 mcg/day of fentanyl intrathecal infusion. We will increase this today. She denies side effects or medication Physical Exam General: Alert and oriented x3, no acute distress, pleasant and cooperative, [on room air] Lungs: Resps E/U, Symmetrical chest expansion, Eyes: PERRL Musculoskeletal: Flexion and extension of lumbar and cervical spine somewhat guarded secondary to pain, deep tendon reflexes normal, strength in upper and lower extremities [5/5], antalgic gait noted Neurological: speech clear, senior network security architect equal, no gross sensory deficits Procedure Details:: Informed consent was obtained and the risk and benefits of the procedure were explained to the patient. The patient was taken to the procedure room where noninvasive monitoring was placed including noninvasive blood pressure cuff and pulse oximeter. Patient's pump was interrogated and reprogrammed. The infusion rate was increased to 100 mcg of fentanyl a day. The patient tolerated the procedure well. Plan and Disposition:: We will see the patient back in the next intrathecal pain pump refill and reprogram. She is been instructed to call the office if she has any issues prior to her next appointment. Dr. Capone has reviewed this note and agrees with this plan of care. This note was dictated using voice recognition software and may contain errors or omissions
== END ==
PROVIDERS: PCP Emergency Medicine; Visit Provider Clinical Nurse Specialist Family Health
DX: M51.16 Intervertebral disc disorders with radiculopathy, lumbar region (principal)
CPT/HCPCS: 62368

== ENCOUNTER → 2019-12-23 08:42 | Outpatient (POV) | payer MEDICAID, SELFPAY ==
[2019-12-23 09:11] VITALS: BP 151/81; PULSE 68; RESP 18; TEMP 36.9; O2SAT 99; BMI 39.1
--- NOTE | 2019-12-23 09:58 | HMH.PMPROC ---
- Procedure Date: 12/23/19 Time: 09:00 Anesthesiologist:: Manda Vera APRN Complications:: None Pre-procedure Diagnosis:: Degenerative disc disease lumbar spine with lumbar radiculopathy symptoms Post-procedure Diagnosis:: Same Indications for Procedure:: Patient is a pleasant 54-year-old white female who presents today for intrathecal pain pump adjustment. She recently had a medication change to fentanyl. She rates her pain 7 out of 10 today. She says that she has been having progressively worsening pain to her low back area over the last 2 to 3 weeks. She says that she is concerned she will need to undergo surgical intervention again. Patient is concerned about increasing her dose. She says that she does not want to get addicted to the medication . She would, however, like an increase in her medicine today. The patient's Brian #[id number] has been reviewed and is appropriate. The patient's urine drug screens have been appropriate. Her morphine equivalent is 0. Physical exam General: Alert and oriented x3, no acute distress, pleasant and cooperative, [on room air] Lungs: Respirations even and unlabored, symmetrical chest expansion Eyes: PERRL Musculoskeletal: Flexion and extension of lumbar spine somewhat guarded secondary to pain, deep tendon reflexes normal, strength in upper and lower extremities [5/5], [abnormal gait noted] Neurological: Speech clear, grease maker head equal, no gross sensory deficit Procedure Details:: Informed consent was obtained and the risk and benefits of the procedure were explained to the patient. Patient was taken to the procedure room where noninvasive monitoring was placed including noninvasive blood pressure cuff and pulse oximeter. Patient's pump was interrogated and was reprogrammed to increase to fentanyl at 150 mcg/day. Her PTC device was increased to 15 mcg up to 6 times daily. The patient tolerated the procedure well with no complications. Plan and Disposition:: We will follow-up with the patient at her next intrathecal pain pump refill and reprogram. If she continues to have pain patient has been notified to contact the clinic. Patient is in agreement. We will see the patient back at her next refill. Dr. Capone has reviewed this note and agrees with this plan of care. This note was dictated using voice recognition software and make contain errors or omissions.
== END ==
PROVIDERS: PCP Emergency Medicine; Visit Provider Clinical Nurse Specialist Family Health
DX: M51.16 Intervertebral disc disorders with radiculopathy, lumbar region (principal)
CPT/HCPCS: 62368

== ENCOUNTER 2020-01-05 15:29 | Day surgery (SDC) | payer MEDICAID, SELFPAY ==
[2020-01-05 15:35] VITALS: BP 138/82; PULSE 78; RESP 18; O2SAT 98; BMI 39.3
[2020-01-05 16:05] VITALS: BP 135/88; PULSE 80; RESP 20; O2SAT 98
[2020-01-05 16:10] VITALS: BP 135/87; PULSE 80; RESP 20; O2SAT 98
--- NOTE | 2020-01-05 16:22 | HMH.PMPROC ---
- Procedure Date: 01/05/20 Time: 16:22 Anesthesiologist:: Beverly Ross APRN Complications:: None Pre-procedure Diagnosis:: Degenerative disc disease lumbar spine with lumbar radiculopathy Post-procedure Diagnosis:: Same Indications for Procedure:: Patient is a pleasant 54-year-old white female who presents today for medical pain pump refill and reprogram. Patient is overall doing well at 150 mcg of fentanyl a day. Patient's Brian reviewed and appropriate urine drug screens have been appropriate. She denies side effects from medication. She rates her pain today 3 out of 10. Physical Exam General: Alert and oriented x3, no acute distress, pleasant and cooperative, [on room air] Lungs: Resps E/U, Symmetrical chest expansion, Eyes: PERRL Musculoskeletal: Flexion and extension of lumbar spine somewhat guarded secondary to pain, deep tendon reflexes normal, strength in upper and lower extremities [5/5], slightly antalgic gait noted Neurological: speech clear, pharmaceutical assistant equal, no gross sensory deficits Procedure Details:: Informed consent was obtained and the risk and benefits of the procedure were explained to the patient. The patient was taken to the procedure room where noninvasive monitoring was placed including noninvasive blood pressure cuff and pulse oximeter. Patient's pump was interrogated. The area over the pump was cleansed with chlorhexidine as a cleansing solution. In sterile fashion the pump was accessed with a 22-gauge needle. Approximately 8 mL's were removed of the pump solution and discarded appropriately. The pump was then refilled with 20 mL's of fentanyl 800 mcg/mL. The needle was withdrawn and a bandage was placed over the puncture site. The infusion rate was reprogrammed to 150 mcg/day. The patient tolerated the procedure well. Plan and Disposition:: Follow-up with the patient at her next intrathecal pain pump refill and reprogram patient overall doing well. We specifically discussed risk factors for Covid-19 including age, heart or lung disease, diabetes, immunosuppression and travel. We also discussed that NSAIDs may worsen Covid-19 infection symptoms and that they should not be used to treat Covid-19 symptoms. Patient was also informed that corticosteroids in any form oral or injectable will decrease immune response and may increase risk of Covid-[address] Capone has reviewed this patient's chart and this note and agrees with plan of care. Patient has been instructed to call the office if they have any issues prior to the next appointment.
[2020-01-05 16:25] VITALS: BP 138/80; PULSE 75; RESP 20; O2SAT 98
== END 2020-01-05 16:25 | disposition home or self-care (01) ==
LOC: SC.PAINP 15:30
PROVIDERS: PCP Emergency Medicine; Visit Provider Clinical Nurse Specialist Family Health
DX: M51.16 Intervertebral disc disorders with radiculopathy, lumbar region (principal); Z79.899 Other long term (current) drug therapy; I10 Essential (primary) hypertension; I25.10 Atherosclerotic heart disease of native coronary artery without angina pectoris; E78.5 Hyperlipidemia, unspecified
CPT/HCPCS: 95991

== ENCOUNTER → 2020-02-02 15:01 | Outpatient (POV) | payer MEDICAID, SELFPAY ==
[2020-02-02 15:29] VITALS: BP 139/95; PULSE 86; RESP 18; TEMP 36.8; O2SAT 99; BMI 45.7
--- NOTE | 2020-02-03 08:04 | HMH.PMPROC ---
- Procedure Date: 02/02/20 Time: 15:30 Anesthesiologist:: Beverly Ross APRN Complications:: None Pre-procedure Diagnosis:: Degenerative disc disease cervical spine with cervical radiculopathy and cervical postlaminectomy syndrome Post-procedure Diagnosis:: Same Indications for Procedure:: She is a pleasant 54-year-old white female who presents today with increased pain in her neck that has not been managed with her intrathecal therapy. Patient has had increased numbness and tingling and weakness down her right arm. Patient states that these are the same symptomology she had prior to her first cervical surgery. Patient does not have any updated cervical imaging. We will send her for an MRI today. We will also increase her fentanyl pump from 150 mcg/day to 170 mcg/day Physical Exam General: Alert and oriented x3, no acute distress, pleasant and cooperative, [on room air] Lungs: Resps E/U, Symmetrical chest expansion, Eyes: PERRL Musculoskeletal: Flexion and extension of cervical spine somewhat guarded secondary to pain, deep tendon reflexes normal, strength in upper and lower extremities [5/5], normal gait noted Neurological: speech clear, no gross sensory deficits, left vp organizational development stronger than right vp organizational development Procedure Details:: Informed consent was obtained and the risk and benefits of the procedure were explained to the patient. The patient was taken to the procedure room where noninvasive monitoring was placed including noninvasive blood pressure cuff and pulse oximeter. Patient's pump was interrogated and reprogrammed. The infusion rate was increased to 170 mcg of fentanyl a day. The patient tolerated the procedure well. Plan and Disposition:: We will send the patient for a cervical MRI to help determine any new pathology. I will follow-up with her after this reassess her symptoms at that time patient's been instructed to call the office if she has any issues prior to her next appointment. Dr. Capone has reviewed this note and agrees with this plan of care. This note was dictated using voice recognition software and may contain errors or omissions
== END ==
PROVIDERS: PCP Emergency Medicine; Visit Provider Clinical Nurse Specialist Family Health
DX: M50.10 Cervical disc disorder with radiculopathy, unspecified cervical region (principal); M96.1 Postlaminectomy syndrome, not elsewhere classified
CPT/HCPCS: 62368; 99212

== ENCOUNTER → 2020-02-03 14:13 | Outpatient (CLI) | payer MEDICAID, SELFPAY ==
--- NOTE | 2020-02-03 14:14 | MM_ITS ---
PROCEDURE: MM DIG MAMM BI DX W/CAD Digital Breast Tomosynthesis Included CLINICAL INDICATION: 6 mth f/u Follow-up abnormal mammogram, breast calcifications COMPARISON: DXBI MM Dig mamm BI DX w/CAD from 07/11/2018 BREASTRT US breast RT complete from 01/10/2019 DXBI MM Dig mamm BI DX w/CAD from 01/10/2019 MM DIG MAMM BI DX W/CAD from 07/25/2019 US BREAST LT COMPLETE from 07/25/2019 US BREAST RT COMPLETE from 02/03/2020 US BREAST LT COMPLETE from 02/03/2020 TECHNIQUE: Standard images performed along with magnification views and bilateral breast ultrasound FINDINGS: Average fibroglandular tissue. Loosely scattered calcifications in the outer aspect of the right breast the on the right not significantly changed. Persistent asymmetry in the lateral aspect of the right breast not significantly changed. Loosely clustered calcifications are present in the retroareolar region on the left similar to 07/11/2018. There is a benign-appearing nodular opacity in the superior and lateral retroareolar region on the left which appear stable Right breast ultrasound: 5 mm cyst at 1 o'clock Left breast ultrasound: 3 mm cystic lesion at 12 o'clock. 6 mm cyst at 2 o'clock. 4 mm cyst at 3 o'clock. 5 mm by 6 mm cyst at 4 o'clock. 3 mm cyst at 9 o'clock near the nipple and 4 mm hypoechoic probable complex cyst at 9 o'clock near the nipple IMPRESSION: Overall no significant change with probably benign calcifications. Suggest continued six-month follow-up to confirm 1 year stability and put patient back on schedule for screening BI-RAD Category: 3 Probably Benign Finding Short Term Follow-up FOLLOW-UP: 6M 6Month Follow-up (A letter has been sent to the patient regarding results of the study.) Dictated by: Osiel Montalvo MD 02/06/2020 14:04 Electronically signed by Osiel Montalvo MD in [place] 02/06/2020 14:04
== END ==
PROVIDERS: PCP Emergency Medicine; Visit Provider Physician Assistant
DX: R92.1 Mammographic calcification found on diagnostic imaging of breast (principal); R92.8 Other abnormal and inconclusive findings on diagnostic imaging of breast
CPT/HCPCS: 76641; 77062; 77066; G0279

== ENCOUNTER → 2020-02-09 11:01 | Outpatient (CLI) | payer MEDICAID, SELFPAY ==
--- NOTE | 2020-02-09 11:04 | MR_ITS ---
PROCEDURE: MR CERVICAL SPINE WO CON CLINICAL INDICATION: NECK PAIN Neck pain with bilateral arm pain numbness and tingling right arm worse. Prior neck surgery COMPARISON: No exams were available for comparison TECHNIQUE: Standard multiplanar multiecho sequences are performed without contrast. 3-D MIP and myelographic images are also rendered and reviewed FINDINGS: There is slight reversal of the cervical lordosis with normal alignment. The craniocervical junction has an unremarkable appearance. C2-C3: Unremarkable. C3-C4: Minimal bulging disc with narrowing of the canal at 9 mm. C4-C5: Bulging disc slightly eccentric toward the left there is considerable artifact at C5-C6 and C7 from anterior cervical bone plate. There is a narrowing of the canal at 9 mm with mild left lateral recess and foraminal narrowing. Minimal contour deformity of the cord anteriorly C5-C6: Postsurgical changes with artifact C6-C7: Postsurgical changes with artifact. C7-T1: Unremarkable. IMPRESSION: Reversal of cervical lordosis which may be due to patient positioning or muscle spasm with postsurgical changes at C5-C6 and C7. There is canal stenosis at C3-C4 and C4-C5 with minimal contour deformity of the cord anteriorly. No extruded herniated disc or other significant anomaly Dictated by: Osiel Montalvo MD 02/10/2020 14:41 Electronically signed by Osiel Montalvo MD in [place] 02/10/2020 14:41
== END ==
PROVIDERS: PCP Emergency Medicine; Visit Provider Clinical Nurse Specialist Family Health
DX: M54.2 Cervicalgia (principal)
CPT/HCPCS: 72141; 76376

== ENCOUNTER 2020-02-24 13:42 | Day surgery (SDC) | payer MEDICAID, SELFPAY ==
[2020-02-24 13:46] VITALS: BP 144/79; PULSE 78; RESP 18; TEMP 36.6; O2SAT 99; BMI 38.9
[2020-02-24 14:04] VITALS: BP 141/89; PULSE 96; RESP 18; TEMP 36.4; O2SAT 97
[2020-02-24 14:06] VITALS: BP 142/88; PULSE 80; RESP 18; TEMP 36.6; O2SAT 99
--- NOTE | 2020-02-24 14:15 | HMH.PMPROC ---
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 She is currently on 170 mcg/mL she would like a slight increase. She is gotten a recent MRI due to her current increased neck pain. She would like a referral to Dr. Jean in [place]. We will do this for her. She rates her pain today an 8 out of 10. [facility] #[id number] Physical Exam General: Alert and oriented x3, no acute distress, pleasant and cooperative, [on room air] Lungs: Resps E/U, Symmetrical chest expansion, Eyes: PERRL Musculoskeletal: Flexion and extension of cervical spine somewhat guarded secondary to pain, deep tendon reflexes normal, strength in upper and lower extremities [5/5], normal gait noted Neurological: speech clear, credit review analyst equal, no gross sensory deficits Procedure Details:: Informed consent was obtained and the risk and benefits of the procedure were explained to the patient. The patient was taken to the procedure room where noninvasive monitoring was placed including noninvasive blood pressure cuff and pulse oximeter. Patient's pump was interrogated. The area over the pump was cleansed with chlorhexidine as a cleansing solution. In sterile fashion the pump was accessed with a 22-gauge needle. Approximately 4.5 mL's were removed of the pump solution and discarded appropriately. The pump was then refilled with 20 mL's of fentanyl 800 mcg/mL. The needle was withdrawn and a bandage was placed over the puncture site. The infusion rate was reprogrammed to increased to 200 mcg/day. The patient tolerated the procedure well. Plan and Disposition:: We will see the patient back at her next intrathecal pain pump refill and reprogram. We will send her to Dr. Jean for consultation regards to her neck pain. She is been instructed to call the office if she has any issues prior to her next appointment. Dr. Capone has reviewed this note and agrees with this plan of care. This note was dictated using voice recognition software and may contain errors or omissions
[2020-02-24 14:19] VITALS: BP 150/85; PULSE 87; RESP 18; O2SAT 99
== END 2020-02-24 14:21 | disposition home or self-care (01) ==
LOC: SC.PAINP 13:43
PROVIDERS: PCP Emergency Medicine; Visit Provider Clinical Nurse Specialist Family Health
DX: M50.10 Cervical disc disorder with radiculopathy, unspecified cervical region (principal); M96.1 Postlaminectomy syndrome, not elsewhere classified; Z79.899 Other long term (current) drug therapy; J45.909 Unspecified asthma, uncomplicated; K21.9 Gastro-esophageal reflux disease without esophagitis; I10 Essential (primary) hypertension; F32.9 Major depressive disorder, single episode, unspecified; E03.9 Hypothyroidism, unspecified; Z72.0 Tobacco use; Z79.51 Long term (current) use of inhaled steroids; Z82.49 Family history of ischemic heart disease and other diseases of the circulatory system
CPT/HCPCS: 62370

== ENCOUNTER 2020-04-05 13:46 | Day surgery (SDC) | payer MEDICAID, SELFPAY ==
[2020-04-05 13:58] VITALS: BP 146/78; BP 148/78; PULSE 66; PULSE 70; RESP 18; TEMP 36.3; O2SAT 99; BMI 38.5
--- NOTE | 2020-04-05 14:17 | P.PCN_ITS ---
- Procedure Date: 04/05/20 Time: 14:24 Anesthesiologist:: Beverly Ross APRN Complications:: None Pre-procedure Diagnosis:: Degenerative disc disease cervical spine cervical radiculopathy and cervical postlaminectomy syndrome Post-procedure Diagnosis:: Same Indications for Procedure:: Patient is a very pleasant 54-year-old white female who presents today for intrathecal pain pump refill and reprogram she is doing quite well at her current dose of 200 mcg of fentanyl a day. She like a slight increase rating her pain today 6 out of 10. She denies side effects or medication. Physical Exam General: Alert and oriented x3, no acute distress, pleasant and cooperative, Lungs: Resps E/U, Symmetrical chest expansion, Eyes: PERRL Musculoskeletal: Flexion and extension of cervical spine somewhat guarded secondary to pain, deep tendon reflexes normal, strength in upper and lower extremities [5/5], normal gait noted Neurological: speech clear, procurement director equal, no gross sensory deficits Procedure Details:: Informed consent was obtained and the risk and benefits of the procedure were explained to the patient. The patient was taken to the procedure room where noninvasive monitoring was placed including noninvasive blood pressure cuff and pulse oximeter. Patient's pump was interrogated. The area over the pump was cleansed with chlorhexidine as a cleansing solution. In sterile fashion the pump was accessed with a 22-gauge needle. Approximately 7 mL's were removed of the pump solution and discarded appropriately. The pump was then refilled with 20 mL's of 1200 mcg of fentanyl per mL. The needle was withdrawn and a bandage was placed over the puncture site. The infusion rate was reprogrammed to 225 mcg/day. The patient tolerated the procedure well. Plan and Disposition:: The patient back at her next intrathecal pain pump refill and reprogram she has been instructed to call the office if she has any issues prior to next appointment. Dr. Capone has reviewed this note and agrees with this plan of care. This note was dictated using voice recognition software and may contain errors or omissions
[2020-04-05 14:18] VITALS: BP 150/87; PULSE 74; RESP 18; O2SAT 98
[2020-04-05 14:20] VITALS: BP 145/87; PULSE 84; RESP 18; O2SAT 99
== END 2020-04-05 14:40 | disposition home or self-care (01) ==
LOC: SC.PAINP 13:47
PROVIDERS: PCP Emergency Medicine; Visit Provider Clinical Nurse Specialist Family Health
DX: M50.10 Cervical disc disorder with radiculopathy, unspecified cervical region (principal); M96.1 Postlaminectomy syndrome, not elsewhere classified; Z88.5 Allergy status to narcotic agent; I10 Essential (primary) hypertension; K21.9 Gastro-esophageal reflux disease without esophagitis; F41.9 Anxiety disorder, unspecified; F32.9 Major depressive disorder, single episode, unspecified; E78.5 Hyperlipidemia, unspecified; J45.909 Unspecified asthma, uncomplicated; E03.9 Hypothyroidism, unspecified; M19.90 Unspecified osteoarthritis, unspecified site; Z82.49 Family history of ischemic heart disease and other diseases of the circulatory system
CPT/HCPCS: 62370

== ENCOUNTER 2020-06-07 13:54 | Day surgery (SDC) | payer MEDICAID, SELFPAY ==
[2020-06-07 14:28] VITALS: BP 125/79; PULSE 79; RESP 17; TEMP 36.6; O2SAT 96; BMI 38.5
[2020-06-07 14:41] VITALS: BP 130/93; PULSE 72; RESP 18; O2SAT 98
[2020-06-07 14:46] VITALS: BP 140/92; PULSE 74; RESP 18; O2SAT 99
--- NOTE | 2020-06-07 14:48 | P.PCN_ITS ---
- Procedure Date: 06/07/20 Time: 14:48 Anesthesiologist:: Beverly Ross APRN Complications:: None Pre-procedure Diagnosis:: Degenerative disc disease cervical spine cervical radiculopathy and postlaminectomy cervical spine Post-procedure Diagnosis:: Same Indications for Procedure:: Patient is a very pleasant 54-year-old white female who presents today for intrathecal pain pump refill and reprogram. Overall she is doing well she rates her pain today as 5 out of 10. She like a slight increase. Patient does use her boluses. Patient's Brian #[id number] reviewed and appropriate. Patient does state that she has been having significant muscle spasms we discussed adding baclofen. She has been on this previously. Physical Exam General: Alert and oriented x3, no acute distress, pleasant and cooperative, [on room air] Lungs: Resps E/U, Symmetrical chest expansion, Eyes: PERRL Musculoskeletal: Flexion and extension of cervical spine somewhat guarded secondary to pain, deep tendon reflexes normal, strength in upper and lower extremities [5/5], slightly antalgic gait noted Neurological: speech clear, registered midwife equal, no gross sensory deficits Procedure Details:: Informed consent was obtained and the risk and benefits of the procedure were explained to the patient. The patient was taken to the procedure room where noninvasive monitoring was placed including noninvasive blood pressure cuff and pulse oximeter. Patient's pump was interrogated. The area over the pump was cleansed with chlorhexidine as a cleansing solution. In sterile fashion the pump was accessed with a 22-gauge needle. Approximately 5 mL's were removed of the pump solution and discarded appropriately. The pump was then refilled with 20 mL's of fentanyl 1200 mcg/mL. The needle was withdrawn and a bandage was placed over the puncture site. The infusion rate was reprogrammed to increase it to 250 mcg/day. The patient tolerated the procedure well. Plan and Disposition:: The patient back at her next intrathecal pain pump refill and reprogram she has been instructed to call the office if she has any issues.. We will also call her in baclofen [address] Capone has reviewed this note and agrees with this plan of care. This note was dictated using voice recognition software and may contain errors or omissions
[2020-06-07 14:55] VITALS: BP 133/78; PULSE 74; RESP 18; O2SAT 96
== END 2020-06-07 14:56 | disposition home or self-care (01) ==
LOC: SC.PAINP 13:55
PROVIDERS: PCP Emergency Medicine; Visit Provider Clinical Nurse Specialist Family Health
DX: M50.10 Cervical disc disorder with radiculopathy, unspecified cervical region (principal); M96.1 Postlaminectomy syndrome, not elsewhere classified; J45.909 Unspecified asthma, uncomplicated; F31.9 Bipolar disorder, unspecified; E07.9 Disorder of thyroid, unspecified; Z90.49 Acquired absence of other specified parts of digestive tract; Z90.711 Acquired absence of uterus with remaining cervical stump
CPT/HCPCS: 62370

== ENCOUNTER 2020-08-02 13:45 | Day surgery (SDC) | payer MEDICAID, SELFPAY ==
[2020-08-02 14:04] VITALS: BP 127/74; PULSE 67; RESP 18; TEMP 36.4; O2SAT 99; BMI 40.2
[2020-08-02 14:17] VITALS: BP 166/82; PULSE 77; RESP 20; O2SAT 97
[2020-08-02 14:20] VITALS: BP 161/85; PULSE 77; RESP 20; O2SAT 97
--- NOTE | 2020-08-02 14:22 | P.PCN_ITS ---
- Procedure Date: 08/02/20 Time: 14:22 Anesthesiologist:: Beverly Ross APRN Complications:: None Pre-procedure Diagnosis:: Degenerative disc disease cervical spine cervical radiculopathy and postlaminectomy cervical spine Post-procedure Diagnosis:: Same Indications for Procedure:: Patient is a 55-year-old white female who presents today for intrathecal pain pump refill and reprogram. Overall she is doing well rating her pain today a 7 out of 10 however it decreases when the weather is better. Patient's Brian #[id number] reviewed and appropriate urine drug screens have been appropriate. Patient does not need any changes made to her fentanyl pump. She is currently on intrathecal fentanyl dose of 250 mcg/day. Physical Exam General: Alert and oriented x3, no acute distress, pleasant and cooperative, [on room air] Lungs: Resps E/U, Symmetrical chest expansion, Eyes: PERRL Musculoskeletal: Flexion and extension of cervical spine somewhat guarded secondary to pain, deep tendon reflexes normal, strength in upper and lower extremities [5/5], slightly antalgic gait noted Neurological: speech clear, application development intern equal, no gross sensory deficits Procedure Details:: Informed consent was obtained and the risk and benefits of the procedure were explained to the patient. The patient was taken to the procedure room where noninvasive monitoring was placed including noninvasive blood pressure cuff and pulse oximeter. Patient's pump was interrogated. The area over the pump was cleansed with chlorhexidine as a cleansing solution. In sterile fashion the pump was accessed with a 22-gauge needle. Approximately 6.5 mL's were removed of the pump solution and discarded appropriately. The pump was then refilled with 20 mL's of fentanyl 1200 mcg/mL. The needle was withdrawn and a bandage was placed over the puncture site. The infusion rate was reprogrammed to continue at 250 mcg/day. The patient tolerated the procedure well. Plan and Disposition:: The patient back at her next physical pain pump refill and reprogram she has been instructed to call the office if she has any issues prior to her next appointment. Dr. Capone has reviewed this note and agrees with this plan of care. This note was dictated using voice recognition software and may contain errors or omissions
[2020-08-02 15:06] VITALS: BP 120/78; PULSE 70; RESP 18; TEMP 36.4; O2SAT 99
== END 2020-08-02 14:30 | disposition home or self-care (01) ==
LOC: SC.PAINP 13:46
PROVIDERS: PCP Emergency Medicine; Visit Provider Clinical Nurse Specialist Family Health
DX: M50.10 Cervical disc disorder with radiculopathy, unspecified cervical region (principal); M96.1 Postlaminectomy syndrome, not elsewhere classified; Z45.1 Encounter for adjustment and management of infusion pump; I10 Essential (primary) hypertension; E03.9 Hypothyroidism, unspecified; Z72.0 Tobacco use; Z88.6 Allergy status to analgesic agent
CPT/HCPCS: 95991

== ENCOUNTER → 2020-08-13 13:51 | Outpatient (CLI) | payer MEDICAID, SELFPAY ==
--- NOTE | 2020-08-13 13:55 | MM_ITS ---
PROCEDURE: MM DIG MAMM BI DX W/CAD Digital Breast Tomosynthesis Included CLINICAL INDICATION: 6 mth f/u there is a history of breast cancer patient's sister diagnosed 40s, and in the patient's paternal aunt and paternal cousin COMPARISON: MG DXBI MM Dig mamm BI DX w/CAD from 01/10/2019 MG MM DIG MAMM BI DX W/CAD from 07/25/2019 MG MM DIG MAMM BI DX W/CAD from 02/03/2020 TECHNIQUE: Standard CC and MLO images and 3D Tomosynthesis was obtained. R2 CAD reviewed. FINDINGS: Scattered fibroglandular densities are seen both breasts. There are couple of stable benign-appearing microcalcifications near the axillary tail right breast. The cluster of microcalcifications subareolar region left breast are best demonstrated on the kerri images have a benign appearance. There is a stable tiny benign-appearing nodular density deep to the nipple left breast. There is no new or suspicious lesion in either breast and no suspicious microcalcifications. IMPRESSION: Fibrofatty parenchyma with stable benign-appearing microcalcifications in each breast BI-RAD Category: 2 Benign Finding(s) FOLLOW-UP: 1YR 1 Year Follow-up (A letter has been sent to the patient regarding results of the study.) Dictated by: Dr. Dominick Floyd MD 08/20/2020 12:12 Dr. Dominick Floyd MD in [place] 08/20/2020 12:12
--- NOTE | 2020-08-13 13:55 | US_ITS ---
PROCEDURE: US BREAST LT COMPLETE CLINICAL INDICATION: 6 mth f/u COMPARISON: US US BREAST RT COMPLETE from 08/13/2020 FINDINGS: Hypoechoic nodule at 12 o'clock 4 mm unchanged. Small cystic area at 2 o'clock 4 mm probably unchanged. 6 mm cyst at 3 o'clock. This not demonstrated previously. 5 mm cyst 4 o'clock not demonstrated previously 5 mm hypoechoic nodule 4 o'clock near nipple suggestive of a cyst. Four mm hypoechoic nodule at 9 nipple suggestive of a cyst. No suspicious nodules evident. IMPRESSION: Benign findings Dictated by: Osiel Montalvo MD 09/03/2020 17:53 Osiel Montalvo MD in [place] 09/03/2020 17:53
--- NOTE | 2020-08-13 13:55 | US_ITS ---
PROCEDURE: US BREAST RT COMPLETE CLINICAL INDICATION: 6 mth f/u COMPARISON: MG MM DIG MAMM BI DX W/CAD from 02/03/2020 US US BREAST RT COMPLETE from 02/03/2020 MG MM DIG MAMM BI DX W/CAD from 08/13/2020 FINDINGS: Hypoechoic nodule at 1 o'clock which may represent a complicated cyst similar to the previous exam. Hypoechoic nodule at 2 o'clock suggestive of a small complicated cyst. No suspicious nodules evident IMPRESSION: Benign findings Dictated by: Osiel Montalvo MD 09/03/2020 17:50 Osiel Montalvo MD in [place] 09/03/2020 17:50
== END ==
PROVIDERS: PCP Emergency Medicine; Visit Provider Physician Assistant
DX: R92.8 Other abnormal and inconclusive findings on diagnostic imaging of breast (principal)
CPT/HCPCS: 76641; 77062; 77066; G0279

== ENCOUNTER 2020-10-04 14:20 | Day surgery (SDC) | payer MEDICAID, SELFPAY ==
[2020-10-04 14:50] VITALS: BP 142/89; PULSE 81; RESP 18; TEMP 36.1; O2SAT 98; BMI 38.5
[2020-10-04 15:29] VITALS: BP 147/85; PULSE 77; RESP 18; O2SAT 97
--- NOTE | 2020-10-04 15:33 | P.PCN_ITS ---
- Procedure Date: 10/04/20 Time: 15:40 Anesthesiologist:: Beverly Ross APRN Complications:: None Pre-procedure Diagnosis:: Degenerative disc disease cervical spine with cervical radiculopathy and postlaminectomy cervical spine Post-procedure Diagnosis:: Same Indications for Procedure:: Is a pleasant 55-year-old white female who presents today for intrathecal pain pump refill and reprogram. She would like a slight increase in her fentanyl dose she is at 250 mics per day. Patient rates her pain today a 5 out of 10. It can get up to a 7 out of 10. Patient is having some swelling in her bilateral upper extremities. Patient states that she has had this after her surgery and has been worse last couple months. We discussed anti-inflammatories and potentially an epidural injection. [facility] #[id number] reviewed and appropriate. Procedure Details:: Informed consent was obtained and the risk and benefits of the procedure were explained to the patient. The patient was taken to the procedure room where noninvasive monitoring was placed including noninvasive blood pressure cuff and pulse oximeter. Patient's pump was interrogated. The area over the pump was cleansed with chlorhexidine as a cleansing solution. In sterile fashion the pump was accessed with a 22-gauge needle. Approximately 4.5 mL's were removed of the pump solution and discarded appropriately. The pump was then refilled with 20 mL's of fentanyl 1200 mcg/mL. The needle was withdrawn and a bandage was placed over the puncture site. The infusion rate was reprogrammed to 275 mcg/day. The patient tolerated the procedure well. Plan and Disposition:: We will see the patient back at her next intrathecal pain pump refill and reprogram she has been instructed to call the office if she has any issues prior to her next appointment. Dr. Capone has reviewed this note and agrees with this plan of care. This note was dictated using voice recognition software and may contain errors or omissions
[2020-10-04 15:37] VITALS: BP 148/79; PULSE 75; RESP 18; O2SAT 98
[2020-10-04 15:48] VITALS: BP 145/67; PULSE 75; RESP 18; O2SAT 98
== END 2020-10-04 15:50 | disposition home or self-care (01) ==
LOC: SC.PAINP 14:21
PROVIDERS: PCP Emergency Medicine; Visit Provider Clinical Nurse Specialist Family Health
DX: M50.10 Cervical disc disorder with radiculopathy, unspecified cervical region (principal); M96.1 Postlaminectomy syndrome, not elsewhere classified; Z45.1 Encounter for adjustment and management of infusion pump; Z88.5 Allergy status to narcotic agent; K21.9 Gastro-esophageal reflux disease without esophagitis; F41.9 Anxiety disorder, unspecified; F32.9 Major depressive disorder, single episode, unspecified; G43.909 Migraine, unspecified, not intractable, without status migrainosus; E07.9 Disorder of thyroid, unspecified; J45.909 Unspecified asthma, uncomplicated; Z79.51 Long term (current) use of inhaled steroids; Z79.899 Other long term (current) drug therapy
CPT/HCPCS: 62370

== ENCOUNTER 2020-11-22 13:51 | Day surgery (SDC) | payer MEDICAID, SELFPAY ==
[2020-11-22 13:59] VITALS: BP 150/95; PULSE 75; RESP 20; TEMP 36.9; O2SAT 94; BMI 40.8
[2020-11-22 14:14] VITALS: BP 167/90; PULSE 85; RESP 18; O2SAT 97
[2020-11-22 14:23] VITALS: BP 165/88; PULSE 76; RESP 18; O2SAT 98
--- NOTE | 2020-11-22 14:36 | HMH.PMPROC ---
- Procedure Date: 11/22/20 Time: 14:36 Anesthesiologist:: Beverly Ross APRN Complications:: None Pre-procedure Diagnosis:: Degenerative disc disease cervical spine cervical radiculopathy and postlaminectomy syndrome cervical spine Post-procedure Diagnosis:: Same Indications for Procedure:: patient is a pleasant 55-year-old white female who presents today for intrathecal pain pump refill and reprogram. Patient is currently at a intrathecal dose of 275 mcg/day. She rates her pain today 5 out of 10. However she states that she is having difficulty swelling and breathing she is recently been put on a fluid pill. Patient Brian reviewed and appropriate. Patient was seen by her primary care physician for this today we will decrease her slightly. Procedure Details:: Refill informed consent was obtained and the risk and benefits of the procedure were explained to the patient. The patient was taken to the procedure room where noninvasive monitoring was placed including noninvasive blood pressure cuff and pulse oximeter. Patient's pump was interrogated. The area over the pump was cleansed with chlorhexidine as a cleansing solution. In sterile fashion the pump was accessed with a 22-gauge needle. Approximately 6 mL's were removed of the pump solution and discarded appropriately. The pump was then refilled with 20 mL's of fentanyl 2400 mcg/mL. The needle was withdrawn and a bandage was placed over the puncture site. The infusion rate was reprogrammed to 270 mcg/day. The patient tolerated the procedure well. Plan and Disposition:: We will see the patient back for her next intrathecal pain pump refill. If patient has worsening swelling she is instructed to call the office this week so we can get her seen by pulmonology. Dr. Capone has reviewed this note and agrees with this plan of care. This note was dictated using voice recognition software and may contain errors or omissions
[2020-11-22 14:41] VITALS: BP 125/79; PULSE 73; RESP 20; O2SAT 94
== END 2020-11-22 14:42 | disposition home or self-care (01) ==
LOC: SC.PAINP 13:53
PROVIDERS: PCP Emergency Medicine; Visit Provider Clinical Nurse Specialist Family Health
DX: M50.10 Cervical disc disorder with radiculopathy, unspecified cervical region (principal); M96.1 Postlaminectomy syndrome, not elsewhere classified; I10 Essential (primary) hypertension; E78.5 Hyperlipidemia, unspecified; J45.909 Unspecified asthma, uncomplicated; K21.9 Gastro-esophageal reflux disease without esophagitis; E07.9 Disorder of thyroid, unspecified; F32.9 Major depressive disorder, single episode, unspecified; Z88.5 Allergy status to narcotic agent
CPT/HCPCS: 62370

== ENCOUNTER → 2020-11-22 14:44 | Outpatient (CLI) | payer MEDICAID, SELFPAY ==
[2020-11-22 16:04] LABS: Alanine Aminotransferase 46 U/L (12-78); Albumin Level 4.2 g/dl (3.5-5.0); Albumin/Globulin Ratio 1.2 (1.1-1.8); Alkaline Phosphatase 86 U/L (38-126); Anion Gap 8.9 mEq/L (5-15); Aspartate Amino Transferase 45 U/L (14-36); Bilirubin,Total 0.9 mg/dl (0.2-1.3); Blood Urea Nitrogen 12 mg/dl (7-17); Calcium 9.9 mg/dl (8.4-10.2); Carbon Dioxide 30 mmol/L (22.0-30.0); Chloride 106 mmol/L (98-107); Chol/HDL Ratio 2.9 (1-3.5); Cholesterol 178 mg/dl (140-200); Estimated Glomerular Filt Rate 87 ml/min (>60); GFR (African American) 105 ML/MIN (>60); Globulin 3.4 g/dL (1.3-3.2); Glucose 138 mg/dl (74-100); HDL Cholesterol 61 mg/dl (40-60); Potassium 3.9 mmoL/L (3.5-5.1); Sodium 141 mmol/L (136-145); Total Protein,Serum 7.6 g/dl (6.3-8.2); Triglycerides 106 mg/dl (30-150); VLDL Cholesterol 21 mg/dL (0-40)
[2020-11-22 16:05] LABS: Basophils % 0.6 % (0.1-2.0); Eosinophils # 0.2 K/mm3 (0.0-0.4); Eosinophils % 2.6 % (0.1-12.0); Hemoglobin 14.4 g/dL (12.2-16.2); Lymphocytes # 1.6 K/mm3 (0.7-4.5); Lymphocytes % 27.9 % (10-50); Mean Corpuscular HGB Conc 34.2 g/dL (31.8-35.4); Mean Corpuscular Hemoglobin 29.2 pg (27.0-31.2); Mean Corpuscular Volume 85.5 fl (81-99); Mean Platelet Volume 8.9 fl (7.4-10.4); Monocytes # 0.3 K/mm3 (0.1-1.0); Monocytes % 4.3 % (1.7-9.3); Neutrophils # 3.7 K/mm3 (1.8-7.8); Neutrophils % 64.5 % (37.0-80.0); Platelet Count 274 K/mm3 (142-424); Red Blood Count 4.91 M/mm3 (4.20-5.40); Red Cell Distribution Width 14.3 % (11.5-17.5); White Blood Count 5.7 K/mm3 (4.8-10.8)
[2020-11-22 16:16] LABS: Direct LDL Cholesterol 101.46 mg/dL (100-129)
[2020-11-22 16:20] LABS: Free T4 (Free Thyroxine) 1.12 ng/dl (0.78-2.19)
[2020-11-22 16:21] LABS: 25-OH Vitamin D, Total 34.2 ng/mL (30-100)
[2020-11-22 16:35] LABS: Thyroid Stimulating Hormone 4.31 uIU/mL (0.465-4.68)
[2020-11-23 08:25] LABS: Hemoglobin A1C 5.5 % (4.0-6.0)
== END ==
PROVIDERS: Visit Provider Physician Assistant
DX: Z68.41 Body mass index [BMI] 40.0-44.9, adult (principal); E03.9 Hypothyroidism, unspecified; R73.09 Other abnormal glucose; E78.5 Hyperlipidemia, unspecified; R60.9 Edema, unspecified; E66.9 Obesity, unspecified; Z82.49 Family history of ischemic heart disease and other diseases of the circulatory system
CPT/HCPCS: 80053; 80061; 82306; 83036; 84439; 84443; 85025

== ENCOUNTER → 2020-12-23 14:02 | Outpatient (CLI) | payer MEDICAID, SELFPAY ==
[2020-12-23 15:00] LABS: Basophils % 0.6 % (0.1-2.0); Eosinophils # 0.2 K/mm3 (0.0-0.4); Eosinophils % 3.1 % (0.1-12.0); Hematocrit 40.1 % (37.0-47.0); Hemoglobin 13.8 g/dL (12.2-16.2); Lymphocytes % 32.7 % (10-50); Mean Corpuscular HGB Conc 34.5 g/dL (31.8-35.4); Mean Corpuscular Hemoglobin 29.1 pg (27.0-31.2); Mean Corpuscular Volume 84.5 fl (81-99); Mean Platelet Volume 7.6 fl (7.4-10.4); Monocytes # 0.3 K/mm3 (0.1-1.0); Monocytes % 4.6 % (1.7-9.3); Neutrophils # 3.5 K/mm3 (1.8-7.8); Platelet Count 238 K/mm3 (142-424); Red Blood Count 4.75 M/mm3 (4.20-5.40); White Blood Count 5.9 K/mm3 (4.8-10.8)
[2020-12-23 16:37] LABS: C-Reactive Protein 10.2 mg/L (0-4)
[2020-12-29 13:53] LABS: D001-IgE D pteronyssinus <0.10 kU/L (Class 0); D002-IgE D farinae <0.10 kU/L (Class 0); E001-IgE Cat Dander <0.10 kU/L (Class 0); E005-IgE Dog Dander <0.10 kU/L (Class 0); G002-IgE Bermuda Grass <0.10 kU/L (Class 0); G006-IgE Timothy Grass <0.10 kU/L (Class 0); I006-IgE Cockroach, German <0.10 kU/L (Class 0); Immunoglobulin E, Total 13 IU/mL (6-495); M001-IgE Penicillium chrysogen <0.10 kU/L (Class 0); M002-IgE Cladosporium herbarum <0.10 kU/L (Class 0); M003-IgE Aspergillus fumigatus <0.10 kU/L (Class 0); M006-IgE Alternaria alternata <0.10 kU/L (Class 0); T001-IgE Maple/Box Elder <0.10 kU/L (Class 0); T003-IgE Common Silver Birch <0.10 kU/L (Class 0); T006-IgE Cedar, Mountain <0.10 kU/L (Class 0); T007-IgE Oak, White <0.10 kU/L (Class 0); T008-IgE Elm, American <0.10 kU/L (Class 0); T010-IgE Walnut <0.10 kU/L (Class 0); T011-IgE Maple Leaf Sycamore <0.10 kU/L (Class 0); T014-IgE Cottonwood <0.10 kU/L (Class 0); T015-IgE Ash, White <0.10 kU/L (Class 0); T022-IgE Pecan, Hickory <0.10 kU/L (Class 0); T070-IgE White Mulberry <0.10 kU/L (Class 0); W001-IgE Ragweed, Short <0.10 kU/L (Class 0); W011-IgE Thistle, Russian <0.10 kU/L (Class 0); W014-IgE Pigweed, Common <0.10 kU/L (Class 0); W018-IgE Sheep Sorrel <0.10 kU/L (Class 0)
[2020-12-29 17:13] LABS: E072-IgE Mouse Urine <0.10 kU/L (Class 0)
== END ==
PROVIDERS: Visit Provider Internal Medicine Pulmonary Disease
DX: R06.00 Dyspnea, unspecified (principal); J45.909 Unspecified asthma, uncomplicated
CPT/HCPCS: 36415; 82785; 85025; 86003; 86140

== ENCOUNTER → 2020-12-27 11:44 | Outpatient (CLI) | payer MEDICAID, SELFPAY ==
--- NOTE | 2020-12-27 11:46 | XR_ITS ---
PROCEDURE: XR CHEST 2V CLINICAL HISTORY: dyspnea Shortness of air COMPARISON: CR CXR2V XR chest 2V from 05/11/2018 FINDINGS: The cardiomediastinal silhouette and pulmonary vascularity are within normal limits. The lungs are clear without infiltrates, suspicious nodules, or pleural effusions. Calcified granuloma is present in the right CP angle. The lungs are otherwise clear. A bone plate overlies the lower cervical spine. No acute bony findings. IMPRESSION: No acute findings. Dictated by: Osiel Montalvo MD 12/27/2020 11:59 Osiel Montalvo MD in [place] 12/27/2020 11:59
== END ==
PROVIDERS: PCP Emergency Medicine; Visit Provider Internal Medicine Pulmonary Disease
DX: J44.9 Chronic obstructive pulmonary disease, unspecified (principal)
CPT/HCPCS: 71046

== ENCOUNTER → 2021-01-11 11:58 | Outpatient (CLI) | payer MEDICAID, SELFPAY ==
[2021-01-11 13:00] LABS: Chloride 103 mmol/L (98-107); Potassium 4.1 mmoL/L (3.5-5.1); Sodium 140 mmol/L (136-145)
[2021-01-11 13:03] LABS: Anion Gap 12.1 mEq/L (5-15); Blood Urea Nitrogen 13 mg/dl (7-17); Carbon Dioxide 29 mmol/L (22.0-30.0); Estimated Glomerular Filt Rate 87 ml/min (>60); GFR (African American) 105 ML/MIN (>60)
[2021-01-11 13:04] LABS: Calcium 9.6 mg/dl (8.4-10.2); Glucose 133 mg/dl (74-100)
[2021-01-11 13:42] LABS: Coronavirus 19 IgG Antibody Negative (Negative); Coronavirus 19 IgM Antibody Negative (Negative)
== END ==
PROVIDERS: Internal Medicine Cardiovascular Disease; Visit Provider Surgery
DX: R06.02 Shortness of breath (principal); R06.00 Dyspnea, unspecified; Z20.822 Contact with and (suspected) exposure to COVID-19
CPT/HCPCS: 36415; 80048; 86328

== ENCOUNTER → 2021-01-15 10:48 | Outpatient (CLI) | payer MEDICAID, SELFPAY ==
[2021-01-15 13:33] LABS: Chloride 104 mmol/L (98-107); Potassium 4.1 mmoL/L (3.5-5.1); Sodium 140 mmol/L (136-145)
[2021-01-15 13:36] LABS: Anion Gap 12.1 mEq/L (5-15); Blood Urea Nitrogen 13 mg/dl (7-17); Calcium 9.3 mg/dl (8.4-10.2); Carbon Dioxide 28 mmol/L (22.0-30.0); Estimated Glomerular Filt Rate 87 ml/min (>60); GFR (African American) 105 ML/MIN (>60); Glucose 121 mg/dl (74-100)
== END ==
PROVIDERS: Visit Provider Internal Medicine Cardiovascular Disease
DX: R06.00 Dyspnea, unspecified; R06.02 Shortness of breath; R00.2 Palpitations; I10 Essential (primary) hypertension; E78.5 Hyperlipidemia, unspecified; R60.1 Generalized edema; Z82.49 Family history of ischemic heart disease and other diseases of the circulatory system
CPT/HCPCS: 36415; 80048

== ENCOUNTER 2021-01-17 08:50 | Day surgery (SDC) | payer MEDICAID, SELFPAY ==
[2021-01-17] VITALS (12 sets, daily range): BP systolic 109–185; BP diastolic 65–91; PULSE 65–83; RESP 12–18; TEMP 36.6–36.8; O2SAT 91–98; BMI 39.9
--- NOTE | 2021-01-17 07:11 | IR_ITS ---
APPROVED REPORT Patient Location: Outpatient Facilities Maintenance Supervisor: HUSSAIN Longo RT (R) PROCEDURES Right heart catheterization Left heart catheterization Left ventriculogram Selective coronary angiogram INDICATION Abnormal Myoview, Pulmonary hypertension, Biventricular congestive heart failure, Informed consent was obtained prior to the procedure. COMPLICATIONS None Estimated Blood Loss: Less than 10 mls TECHNIQUE One percent lidocaine was used to anesthetize the right anterior aspect of the right wrist. The right radial artery was accessed via the Seldinger technique and a 6 Yoruba hydrophilic sheath was placed in the right radial artery. Following this one percent lidocaine was used to anesthetize the right anterior aspect of the right neck. The right internal jugular vein was accessed via the Seldinger technique and a 7 Yoruba sheath was placed in the right internal jugular vein. Following this an arterial cocktail was administered using 5000U heparin, 2.5 mg verapamil, 1mg Lidocaine and 800mcg nitroglycerin into the right radial sheath. A trap catheter was used to perform left heart catheterization left ventriculogram and selective coronary angiography while a [place]-Александр catheter was used to perform right heart catheterization. Saturations were obtained in the pulmonary artery and right atrium. At the end of the procedure the arterial sheath was removed good hemostasis was achieved using Traclet band. Patient was transferred to the postop holding area in stable condition for venous sheath removal. ANGIOGRAPHIC RESULTS The left main artery Normal The left anterior descending artery Normal The circumflex artery Normal The right coronary artery Normal The VEGA ventriculogram reveals Normal 65% The left ventricular end-diastolic pressure 25 mmHg Right atrial pressure 23 mmHg Pulmonary artery pressure 42/37 Pulmonary artery occlusion pressure 28 mmHg Right atrial saturation 81% Pulmonary saturation 81% IMPRESSION Normal coronary arteries Normal ejection fraction Moderate pulmonary hypertension all consistent with left-sided diastolic dysfunction resulting in biventricular congestive heart failure PLAN 1. Treatment of diastolic dysfunction with loop diuretics weight loss. 2. Sleep study 3. Patient advised in her exercise program Electronically signed by : Giancarlo Viera, 01/17/2021 10:37:46
[2021-01-17 09:30] LABS: Basophils % 0.6 % (0.1-2.0); Eosinophils # 0.2 K/mm3 (0.0-0.4); Hematocrit 43.1 % (37.0-47.0); Hemoglobin 14.8 g/dL (12.2-16.2); Lymphocytes # 1.9 K/mm3 (0.7-4.5); Lymphocytes % 31.9 % (10-50); Mean Corpuscular HGB Conc 34.5 g/dL (31.8-35.4); Mean Corpuscular Hemoglobin 29.3 pg (27.0-31.2); Mean Corpuscular Volume 84.9 fl (81-99); Mean Platelet Volume 7.1 fl (7.4-10.4); Monocytes # 0.2 K/mm3 (0.1-1.0); Monocytes % 3.8 % (1.7-9.3); Neutrophils # 3.6 K/mm3 (1.8-7.8); Neutrophils % 60.7 % (37.0-80.0); Platelet Count 248 K/mm3 (142-424); Red Blood Count 5.07 M/mm3 (4.20-5.40); Red Cell Distribution Width 14.3 % (11.5-17.5); White Blood Count 5.9 K/mm3 (4.8-10.8)
[2021-01-17 09:36] LABS: Chloride 103 mmol/L (98-107); Sodium 138 mmol/L (136-145)
[2021-01-17 09:39] LABS: Blood Urea Nitrogen 15 mg/dl (7-17); Calcium 9.3 mg/dl (8.4-10.2); Carbon Dioxide 29 mmol/L (22.0-30.0); Creatinine Clearance Estimated 124 mL/min (50-200); Estimated Glomerular Filt Rate 74 ml/min (>60); GFR (African American) 90 ML/MIN (>60); Glucose 108 mg/dl (74-100)
[2021-01-17 10:03] LABS: Coronavirus 19 IgG Antibody Positive (Negative); Coronavirus 19 IgM Antibody Negative (Negative)
[2021-01-17 12:06] LABS: CATHL Arterial O2 SAT 81.2 % (90-100)
[2021-01-17 12:07] LABS: CATHL Venous O2 SAT 80.1 % (75-80)
== END 2021-01-17 13:55 | disposition home or self-care (01) ==
LOC: CATHLAB 08:51
PROVIDERS: PCP Emergency Medicine; Visit Provider Internal Medicine
DX: I27.20 Pulmonary hypertension, unspecified (principal); I50.82 Biventricular heart failure; Z79.899 Other long term (current) drug therapy; Z88.2 Allergy status to sulfonamides; Z82.49 Family history of ischemic heart disease and other diseases of the circulatory system; I10 Essential (primary) hypertension; Z87.891 Personal history of nicotine dependence
CPT/HCPCS: 80048; 82810; 85025; 86328; 93460; 99152; C1725; C1769; C1894; J1644; J2405; Q9967

== ENCOUNTER → 2021-01-25 07:46 | Outpatient (CLI) | payer MEDICAID, SELFPAY ==
[2021-01-25 18:03] LABS: Coronavirus 19 IgG Antibody Positive (Negative); Coronavirus 19 IgM Antibody Negative (Negative)
== END ==
PROVIDERS: Surgery; PCP Emergency Medicine; Visit Provider Internal Medicine Pulmonary Disease
DX: Z01.812 Encounter for preprocedural laboratory examination (principal); Z20.822 Contact with and (suspected) exposure to COVID-19; J44.9 Chronic obstructive pulmonary disease, unspecified
CPT/HCPCS: 36415; 86328; 94060; 94726; 94729

== ENCOUNTER → 2021-01-25 09:04 | Outpatient (CLI) | payer MEDICAID, SELFPAY | PROVIDERS: Visit Provider Surgery | DX: Z20.822 Contact with and (suspected) exposure to COVID-19 (principal) | CPT/HCPCS: 36415; 86328 ==

== ENCOUNTER 2021-01-27 07:32 | Day surgery (SDC) | payer MEDICAID, SELFPAY ==
[2021-01-25 11:02] VITALS: BMI 40.2
[2021-01-27 07:46] VITALS: BP 124/42; PULSE 85; RESP 20; TEMP 35.5; O2SAT 98
[2021-01-27 08:21] VITALS: O2SAT 98
--- NOTE | 2021-01-27 08:24 | P.PN_ITS ---
[facility] Anesthesia Checklist - Structural Data Admitted From: Home Planned Operative Procedure/s: colonoscopy Consent for Planned Operative Procedure(s) Verified: Yes - Additional verifications Anesthesia Reactions: No Hx Blood Transfusions: No - Airway Assessment C-Spine Mobility Assessed: Yes TMJ Mobility Assessed: Yes Dentition: Good Dentition - Neurological Assessment Level of Consciousness: Awake, Alert, Appropriate - Anesthesia Plan Anesthesia Risk discussed: Yes Anesthesia Plan: Verified ASA Class: II Anesthesia Type: MAC [facility] History I have reviewed the patient's past medical history: Yes Medical History: Reports:: Asthma, Depression, Gastroesophageal Reflux Disease(GERD), Hyperlipidemia, Hypertension Denies:: Cancer, Diabetes Mellitus Type 1, Diabetes Mellitus Type 2, Internal Pacemaker, Lung Disease, MRSA, Seizures *Have you ever received a pneumonia vaccine?: No *Have you received a flu vaccine this season?: No Other Medical History: Reports: Hypothyroidism, Thyroid Disease, Other Anesthesia experience/problems:: none Other Surgeries: Yes: Cardiac Catheterization, Cholecystectomy, Colonoscopy, EGD, Hysterectomy-Partial, Other (pain pump implant). No: Pacemaker Amputation: No Fractures: No - *Social History Smoking Status: Former smoker Tobacco Type: cigarettes # Packs/Day (cigarettes): 1 #Yrs smoked (if former smoker): 20 Alcohol Intake: never Substance Use Type: denies use *Occupational Status:: unemployed Housing: house Household Members: other *Travel in the last 8 weeks: None - Psychiatric History Pschychiatric History:: Reports:: Depression Family Hx:: Coronary Artery Disease, Heart Attack
[2021-01-27 09:05] VITALS: BP 111/53; PULSE 79; RESP 20; TEMP 36.2; O2SAT 94
--- NOTE | 2021-01-27 09:07 | P.PCN_ITS ---
- Procedure: Date: 01/27/21 Patient Date of :: 1965 Procedure Performed:: Colonoscopy with polypectomy Indications:: History of polyps including large complex cecal polyp requiring tattoo injection for future reference Performing Provider:: Cipriano Bowser MD Referring Provider:: . Sedation:: Monitored anesthesia care Procedure:: After informed consent was obtained the patient was taken to the endoscopy suite. Sedation ensued after the patient was transferred to the left lateral decubitus position. Pulse, blood pressure, and oxygen saturation were monitored throughout the procedure. Digital rectal exam revealed no significant abnormality. The colonoscope was placed in position. The entire colon was evaluated. The colonoscope was carefully removed and the patient was transferred to recovery in stable condition. Please see findings and specimens below for detail. Findings:: Bowel preparation moderate to poor Sigmoid diverticulosis Mild hemorrhoidal tags Cecal tattoo site with no obvious abnormality Large complex adjacent sessile polyps of the splenic flexure (excised by way of snare polypectomy and cold biopsy forceps; marked by SPOT) Specimens:: Adjacent sessile complex splenic flexure polyps (biopsy forceps, snare, and tattoo) Recommendations:: Timing of repeat colonoscopy is pending pathology but will likely be between 6- 12 months secondary to large complex splenic flexure polyp and limited bowel preparation. Complications:: No immediate Estimated blood obtained (mL): 1
[2021-01-27 09:15] VITALS: BP 107/72; PULSE 75; RESP 20; TEMP 36.2; O2SAT 97
[2021-01-27 09:25] VITALS: BP 109/74; PULSE 68; RESP 20; TEMP 36.2; O2SAT 99
[2021-01-27 09:44] VITALS: BP 96/69; PULSE 67; RESP 20; TEMP 36.2; O2SAT 97
== END 2021-01-27 09:44 | disposition home or self-care (01) ==
LOC: OUTP 07:32
PROVIDERS: PCP Emergency Medicine; Visit Provider Surgery
PROC: 0DJD8ZZ Inspection of Lower Intestinal Tract, Via Natural or Artificial Opening Endoscopic (ICD-10-PCS; CPT 45385; principal; 2021-01-27 08:30)
DX: Z86.010 Personal history of colon polyps (principal); Z12.11 Encounter for screening for malignant neoplasm of colon; K57.30 Diverticulosis of large intestine without perforation or abscess without bleeding; K64.9 Unspecified hemorrhoids; K63.5 Polyp of colon; J45.909 Unspecified asthma, uncomplicated; F32.9 Major depressive disorder, single episode, unspecified; K21.9 Gastro-esophageal reflux disease without esophagitis; E78.5 Hyperlipidemia, unspecified; I10 Essential (primary) hypertension; E03.9 Hypothyroidism, unspecified; Z87.891 Personal history of nicotine dependence
CPT/HCPCS: 45385; 45381

== ENCOUNTER → 2021-02-03 11:44 | Outpatient (CLI) | payer MEDICAID, SELFPAY ==
[2021-02-03 13:13] LABS: Chloride 103 mmol/L (98-107); Sodium 138 mmol/L (136-145)
[2021-02-03 13:14] LABS: Potassium 4.3 mmoL/L (3.5-5.1)
[2021-02-03 13:16] LABS: Anion Gap 11.3 mEq/L (5-15); Blood Urea Nitrogen 16 mg/dl (7-17); Carbon Dioxide 28 mmol/L (22.0-30.0); Estimated Glomerular Filt Rate 87 ml/min (>60); GFR (African American) 105 ML/MIN (>60)
[2021-02-03 13:17] LABS: Calcium 9.5 mg/dl (8.4-10.2); Glucose 114 mg/dl (74-100)
[2021-02-03 13:25] LABS: NT Pro Brain Natriuretic Pep. 76.7 pg/mL (0-125)
[2021-02-09 20:19] LABS: M003-IgE Aspergillus fumigatus <0.10 kU/L (Class 0)
== END ==
PROVIDERS: Internal Medicine Pulmonary Disease; Visit Provider Internal Medicine Cardiovascular Disease
DX: R06.02 Shortness of breath (principal); R00.2 Palpitations; I50.30 Unspecified diastolic (congestive) heart failure; E78.5 Hyperlipidemia, unspecified; I10 Essential (primary) hypertension; R60.9 Edema, unspecified; J44.9 Chronic obstructive pulmonary disease, unspecified; Z82.49 Family history of ischemic heart disease and other diseases of the circulatory system
CPT/HCPCS: 36415; 80048; 83880; 86003

== ENCOUNTER 2021-02-28 12:41 | Day surgery (SDC) | payer MEDICAID, SELFPAY ==
[2021-02-28 13:00] VITALS: BP 119/49; PULSE 70; RESP 18; TEMP 37.1; O2SAT 96; BMI 39.9
[2021-02-28 13:01] VITALS: BP 138/75; BP 139/68; PULSE 74; PULSE 76; RESP 20; O2SAT 96; O2SAT 97
--- NOTE | 2021-02-28 13:13 | P.PCN_ITS ---
- Procedure Date: 02/28/21 Time: 13:13 Anesthesiologist:: Manda Vera APRN Complications:: None Pre-procedure Diagnosis:: Degenerative disc disease cervical spine with cervical radiculopathy symptoms, postlaminectomy syndrome cervical spine Post-procedure Diagnosis:: Same Indications for Procedure:: Patient is a pleasant 55-year-old white female who presents today for intratheca l pain pump refill and reprogram. She has been treated for degenerative disc disease cervical spine with cervical radiculopathy symptoms. She says she is doing well overall with her intrathecal therapy but would like an increase today. She is currently on fentanyl at 275 mcg/day. She denies any side effects. Her Brian and drug screens are appropriate. Her Brian #[id number] has been reviewed and is appropriate. Patient also reports that she is out of her baclofen and does need a refill. We will refill her baclofen 10 mg 1 tablet p.o. daily as needed muscle spasms. Physical exam General: Alert and oriented x3, no acute distress, pleasant and cooperative, [on room air] Lungs: Respirations even and unlabored, symmetrical chest expansion Eyes: PERRL Musculoskeletal: Flexion and extension of cervical spine somewhat guarded secondary to pain, deep tendon reflexes normal, strength in upper and lower extremities [5/5], [abnormal gait noted] Neurological: Speech clear, area field person equal, no gross sensory deficit Procedure Details:: Informed consent was obtained and the risk and benefits of the procedure were explained to the patient. The patient was taken to the procedure room where noninvasive monitoring was placed including noninvasive blood pressure cuff and pulse oximeter. Patient's pump was interrogated. The area over the pump was cleansed with chlorhexidine as a cleansing solution. In sterile fashion the pump was accessed with a 22-gauge needle. Approximately 7 mls of the pump solution was removed and discarded appropriately. The pump was then refilled with 20 mL's of fentanyl 2400 mcg/ml. The needle was withdrawn and a bandage was placed over the puncture site. The infusion rate was reprogrammed at fentanyl at 297 mcg/day. The patient tolerated well with no complication. Plan and Disposition:: We will see the patient back at the next intrathecal refill. Patient has been instructed to contact clinic if any questions or concerns before the next appointment. Dr. Capone has reviewed this note and agrees with this plan of care. This note was dictated using voice recognition software and make contain errors or omissions.
[2021-02-28 13:25] VITALS: BP 117/72; PULSE 64; RESP 18; O2SAT 96
== END 2021-02-28 13:25 | disposition home or self-care (01) ==
LOC: SC.PAINP 12:43
PROVIDERS: PCP Emergency Medicine; Visit Provider Clinical Nurse Specialist Family Health
DX: M50.10 Cervical disc disorder with radiculopathy, unspecified cervical region (principal); M96.1 Postlaminectomy syndrome, not elsewhere classified; Z45.1 Encounter for adjustment and management of infusion pump; E03.9 Hypothyroidism, unspecified; E78.5 Hyperlipidemia, unspecified; I10 Essential (primary) hypertension; J45.909 Unspecified asthma, uncomplicated; K21.9 Gastro-esophageal reflux disease without esophagitis; F32.9 Major depressive disorder, single episode, unspecified; Z88.5 Allergy status to narcotic agent; Z79.899 Other long term (current) drug therapy
CPT/HCPCS: 62370

== ENCOUNTER → 2021-03-07 11:58 | Outpatient (CLI) | payer MEDICAID, SELFPAY | PROVIDERS: Visit Provider Internal Medicine Pulmonary Disease | DX: Z01.812 Encounter for preprocedural laboratory examination (principal); Z11.52 Encounter for screening for COVID-19 | CPT/HCPCS: U0003 ==

== ENCOUNTER → 2021-03-08 20:29 | Outpatient (CLI) | payer MEDICAID, SELFPAY | PROVIDERS: PCP Emergency Medicine; Visit Provider Internal Medicine Pulmonary Disease | DX: G47.30 Sleep apnea, unspecified (principal); R06.83 Snoring; J45.909 Unspecified asthma, uncomplicated | CPT/HCPCS: 95810 ==

== ENCOUNTER → 2021-06-02 09:58 | Outpatient (POV) | payer MEDICAID, SELFPAY ==
[2021-06-02 10:07] VITALS: BP 148/87; PULSE 94; RESP 18; O2SAT 98; BMI 39.6
--- NOTE | 2021-06-02 11:23 | HMH.PMPROC ---
- Procedure Date: 06/02/21 Time: 11:23 Anesthesiologist:: Manda Vera APRN Complications:: None Pre-procedure Diagnosis:: Degenerative disc disease cervical spine with cervical radiculopathy symptoms, postlaminectomy syndrome cervical spine Post-procedure Diagnosis:: Same Indications for Procedure:: Patient is a pleasant 55-year-old white female who presents today for intrathecal pain pump adjustment. She has been treated for degenerative disc disease cervical spine with cervical radiculopathy symptoms and postlaminectomy syndrome cervical spine. Patient did see neurology recently and did undergo sleep study. Patient says that she was told by her neurologist that her drowsiness is likely due to her intrathecal therapy. Patient previously had Dilaudid in her intrathecal pump and was having increased drowsiness. As result, the medication was changed. She is now on fentanyl at 297 mcg/day. She also takes baclofen 10 mg 1 tablet p.o. daily as needed. Patient does not take her muscle relaxer daily. She was advised by her neurologist to titrate up her dosing of her intrathecal therapy and to stop her baclofen. The patient's neurology office did contact the clinic previous day and recommend the patient be seen immediately. Patient is here today. She says that she does not understand why they were adamant about medication change. She is, at any rate, agreeable to stopping her baclofen at this time and decreasing her dose of intrathecal therapy. She does rate her pain a 6 out of 10 and says the pain is being managed adequately with her intrathecal therapy. Physical exam General: Alert and oriented x3, no acute distress, pleasant and cooperative, [on room air] Lungs: Respirations even and unlabored, symmetrical chest expansion Eyes: PERRL Musculoskeletal: Flexion and extension of [] cervical [spine] somewhat guarded secondary to pain, strength in upper and lower extremities [5/5], [normal gait noted Neurological: Speech clear, [reception manager equal], no gross sensory deficit Procedure Details:: Informed consent was obtained and the risk and benefits of the procedure were explained to the patient. Patient was taken to the procedure room where noninvasive monitoring was placed including noninvasive blood pressure cuff and pulse oximeter. Patient's pump was interrogated and was reprogrammed to fentanyl at 280 mcg/day. The patient tolerated the procedure well with no complications. Plan and Disposition:: Patient will stop her baclofen. She was decreased with her intrathecal therapy at the recommendation of neurology today. We will plan to follow-up with the patient at her next refill visit to see if this helps with her drowsiness. If the patient does not have any changes it is likely not her intrathecal pump or the muscle relaxer. Patient has been advised if she would like to be seen prior to this visit we will be happy to see her to follow-up with her symptoms. If her drowsiness does worsen, she is also been advised she can return to the clinic. Due to her neurology office concern, we will also order the patient Narcan to have available in the event of oversedation. Patient has been instructed to contact the clinic with any concerns before the next appointment. Dr. Capone has reviewed this note and agrees with this plan of care. This note was dictated using voice recognition software and make contain errors or omissions.
== END ==
PROVIDERS: PCP Emergency Medicine; Visit Provider Clinical Nurse Specialist Family Health
DX: M50.10 Cervical disc disorder with radiculopathy, unspecified cervical region (principal); M96.1 Postlaminectomy syndrome, not elsewhere classified; Z45.1 Encounter for adjustment and management of infusion pump
CPT/HCPCS: 62368; 99212; G0463

== ENCOUNTER 2021-06-13 14:44 | Day surgery (SDC) | payer MEDICAID, SELFPAY ==
[2021-06-13 14:59] VITALS: BP 149/74; PULSE 75; RESP 18; TEMP 36.1; O2SAT 97; BMI 38.5
[2021-06-13 15:22] VITALS: BP 124/64; PULSE 73; RESP 18; O2SAT 95
[2021-06-13 15:23] VITALS: BP 140/78; PULSE 76; RESP 18; O2SAT 95
--- NOTE | 2021-06-13 15:30 | P.PCN_ITS ---
- Procedure Date: 06/13/21 Time: 15:30 Anesthesiologist:: Manda Vera APRN Complications:: None Pre-procedure Diagnosis:: Degenerative disc disease cervical spine with cervical radiculopathy symptoms, postlaminectomy syndrome cervical spine Post-procedure Diagnosis:: Same Indications for Procedure:: Patient is a pleasant 55-year-old white female who presents today for intratheca l pain pump refill and reprogram. She is being treated for degenerative disc disease cervical spine with cervical radiculopathy symptoms and postlaminectomy cervical spine. Patient was recently decreased with her intrathecal therapy due to concerns of oversedation per her neurologist. The patient was decreased and she did not notice a change in her drowsiness. She says this has been ongoing for many years. She does not feel it is medication related. She would like to go back to her previous dose. She is currently on fentanyl at 280 mcg/day. At her last visit she was at 297 mcg/day. She would like a decrease in her PTC device, as she feels it makes her too loopy when taking the boluses. Current PTC is at 27 mcg up to 6 times daily. Brian and drug screen are appropriate. Physical exam General: Alert and oriented x3, no acute distress, pleasant and cooperative, [on room air] Lungs: Respirations even and unlabored, symmetrical chest expansion Eyes: PERRL Musculoskeletal: Flexion and extension of cervical [spine] somewhat guarded secondary to pain, strength in upper and lower extremities [5/5], normal gait noted Neurological: Speech clear, [concrete fence builder equal], no gross sensory deficit Procedure Details:: Informed consent was obtained and the risk and benefits of the procedure were explained to the patient. The patient was taken to the procedure room where noninvasive monitoring was placed including noninvasive blood pressure cuff and pulse oximeter. Patient's pump was interrogated. The area over the pump was cleansed with chlorhexidine as a cleansing solution. In sterile fashion the pump was accessed with a 22-gauge needle. Approximately 5 mls of the pump solution was removed and discarded appropriately. The pump was then refilled with 20 mL's of fentanyl 2400 mcg/day. The needle was withdrawn and a bandage was placed over the puncture site. The infusion rate was reprogrammed at crease to fentanyl at 297 mcg/day. PTC decreased to 20 mcg up to 6 times daily.. The patient tolerated well with no complication. Plan and Disposition:: We will see the patient back in the clinic at the next intrathecal refill. Patient has been instructed to contact the clinic with any concerns before the next appointment. Dr. Capone has reviewed this note and agrees with this plan of care. This note was dictated using voice recognition software and make contain errors or omissions.
[2021-06-13 15:40] VITALS: BP 126/79; PULSE 61; RESP 20; O2SAT 96
== END 2021-06-13 15:40 | disposition home or self-care (01) ==
LOC: SC.PAINP 14:46
PROVIDERS: PCP Emergency Medicine; Visit Provider Clinical Nurse Specialist Family Health
DX: M50.10 Cervical disc disorder with radiculopathy, unspecified cervical region (principal); M96.1 Postlaminectomy syndrome, not elsewhere classified; Z45.1 Encounter for adjustment and management of infusion pump
CPT/HCPCS: 62370

== ENCOUNTER 2021-09-19 13:02 | Day surgery (SDC) | payer MEDICAID, SELFPAY ==
[2021-09-19 13:03] VITALS: BP 145/76; PULSE 77; RESP 18; TEMP 36.3; O2SAT 97; BMI 38.5
--- NOTE | 2021-09-19 13:04 | P.PCN_ITS ---
- Procedure Date: 09/19/21 Time: 13:04 Anesthesiologist:: Raeann Humphreys MD Complications:: None Pre-procedure Diagnosis:: Patient if this disease of the cervical spine with cervical radiculopathy symptoms, postlaminectomy syndrome Post-procedure Diagnosis:: Same Indications for Procedure:: Patient is a pleasant 56-year-old female who presents today for intrathecal pain pump [refill] [and reprogram]. Patient is currently being treated for degenerative disc disease of cervical spine with cervical radiculopathy symptoms, postlaminectomy syndrome. Patient is currently being managed with fentanyl 2400 mcg/mL at a rate of 290 mcg/day. Patient denies any side effects from this medication. Patient denies any change to the location type of pain. Patient is wanting an adjustment today. Patient rates pain a 7 out of 10. Drug screen is appropriate. [facility] [id number] has been reviewed and is appropriate. Physical exam General: Alert and oriented x3, no acute distress, pleasant and cooperative, [on room air] Lungs: Respirations even and unlabored, symmetrical chest expansion Eyes: PERRL Musculoskeletal: Flexion and extension of cervical [spine] somewhat guarded secondary to pain, [antalgic gait noted] Neurological: Speech clear, no gross sensory deficit Procedure Details:: Informed consent was obtained and the risk and benefits of the procedure were explained to the patient. The patient was taken to the procedure room where noninvasive monitoring was placed including noninvasive blood pressure cuff and pulse oximeter. Patient's pump was interrogated. The area over the pump was cleansed with chlorhexidine as a cleansing solution. In sterile fashion the pump was accessed with a 22-gauge needle. Approximately 6 mls of the pump solution was removed and discarded appropriately. The pump was then refilled with 20 mL's of fentanyl 2400 mcg/mL. The needle was withdrawn and a bandage was placed over the puncture site. The infusion rate was reprogrammed at fentanyl 319mcg/day. The patient tolerated well with no complication. Plan and Disposition:: We will see the patient back in the clinic at the next intrathecal refill. Patient has been instructed to contact the clinic with any concerns before the next appointment. This note was dictated using voice recognition software and make contain errors or omissions.
[2021-09-19 13:13] VITALS: BP 134/57; PULSE 85; RESP 18; O2SAT 98
[2021-09-19 13:16] VITALS: PULSE 91; RESP 18; O2SAT 98
[2021-09-19 13:35] VITALS: BP 141/69; PULSE 74; RESP 20; O2SAT 95
[2021-09-19 16:03] LABS: Amphetamine/Metha Screen,Urine Negative ng/ml (<1000)
[2021-09-19 16:04] LABS: Barbiturates Screen,Urine Negative ng/ml (<200)
[2021-09-19 16:05] LABS: Benzodiazepines Screen,Urine Negative ng/ml (<200); Cannabinoid Screen,Urine Negative ng/ml (<50)
[2021-09-19 16:06] LABS: Cocaine Screen,Urine Negative ng/ml (<300); Methadone Screen,Urine Negative ng/ml (<300)
[2021-09-19 16:07] LABS: Opiate Screen,Urine Negative ng/ml (<300)
[2021-09-19 16:08] LABS: Phencyclidine Screen,Urine Negative ng/ml (<25)
[2021-10-08 13:29] LABS: Opiates Negative (Cutoff=100)
== END 2021-09-19 13:35 | disposition home or self-care (01) ==
PROVIDERS: Clinical Nurse Specialist Family Health; PCP Emergency Medicine; Visit Provider Family Medicine
DX: M50.10 Cervical disc disorder with radiculopathy, unspecified cervical region (principal); M96.1 Postlaminectomy syndrome, not elsewhere classified; Z45.1 Encounter for adjustment and management of infusion pump; E78.5 Hyperlipidemia, unspecified; I10 Essential (primary) hypertension; K21.9 Gastro-esophageal reflux disease without esophagitis; E03.9 Hypothyroidism, unspecified; I50.9 Heart failure, unspecified; J45.909 Unspecified asthma, uncomplicated; F32.A Depression, unspecified; F41.9 Anxiety disorder, unspecified; Z88.5 Allergy status to narcotic agent
CPT/HCPCS: 36415; 62370; 80305; 80361; 80365; G0480

== ENCOUNTER → 2021-11-25 13:06 | Outpatient (CLI) | payer MEDICAID, SELFPAY ==
[2021-11-25 14:32] LABS: Blood Urea Nitrogen 15 mg/dl (7-17); Calcium 9.4 mg/dl (8.4-10.2); Carbon Dioxide 30 mmol/L (22.0-30.0); Chloride 101 mmol/L (98-107); Estimated Glomerular Filt Rate 87 ml/min (>60); GFR (African American) 105 ML/MIN (>60); Glucose 131 mg/dl (74-100); Sodium 140 mmol/L (136-145)
[2021-11-25 14:40] LABS: NT Pro Brain Natriuretic Pep. 40.4 pg/mL (0-125)
== END ==
PROVIDERS: Visit Provider Internal Medicine Cardiovascular Disease
DX: R06.00 Dyspnea, unspecified (principal); R07.9 Chest pain, unspecified; R00.2 Palpitations; I10 Essential (primary) hypertension; I50.32 Chronic diastolic (congestive) heart failure; E78.5 Hyperlipidemia, unspecified; R60.1 Generalized edema; Z82.49 Family history of ischemic heart disease and other diseases of the circulatory system
CPT/HCPCS: 36415; 80048; 83880

== ENCOUNTER → 2021-11-30 07:47 | Outpatient (CLI) | payer MEDICAID, SELFPAY ==
--- NOTE | 2021-11-30 08:39 | CT_ITS ---
FINAL REPORT TECHNIQUE: Then section axial CT images of the chest were obtained with contrast. Three-D reformatted images were also obtained.This study was performed with techniques to keep radiation doses as low as reasonably achievable (ALARA). Individualized dose reduction techniques using automated exposure control or adjustment of mA and/or kV according to the patient''s size were employed. CLINICAL HISTORY: dyspnea/heart failure FINDINGS: There is no evidence of pulmonary embolism. There is no evidence of thoracic aortic aneurysm or dissection. There is no evidence of mediastinal or hilar mass or adenopathy. There is no evidence of pulmonary mass or suspicious nodule. There is a calcified granuloma in the right lung base. No localized inflammatory process is seen within the lungs. Limited images of the upper abdomen reveals fatty infiltrated liver. There are postoperative changes from cholecystectomy. IMPRESSION: 1. No evidence of pulmonary embolism. 2. No mass or localized inflammatory process. Reviewed, Interpreted and Dictated by Rigoberto Guerin III, MD Transcribed by Evangelina Oviedo Authenticated by Rigoberto Guerin III, MD on 11/30/2021 10:22:56 AM [facility]
== END ==
PROVIDERS: PCP Emergency Medicine; Visit Provider Internal Medicine Cardiovascular Disease
DX: R06.00 Dyspnea, unspecified (principal); R07.9 Chest pain, unspecified; R00.2 Palpitations; I10 Essential (primary) hypertension; E78.5 Hyperlipidemia, unspecified; I50.32 Chronic diastolic (congestive) heart failure; R60.0 Localized edema; R60.1 Generalized edema; Z82.49 Family history of ischemic heart disease and other diseases of the circulatory system
CPT/HCPCS: 71275; 93306; Q9967

== ENCOUNTER 2021-12-12 12:54 | Day surgery (SDC) | payer MEDICAID, SELFPAY ==
[2021-12-12 13:08] VITALS: BP 138/78; BP 142/70; BP 146/71; PULSE 76; PULSE 79; PULSE 82; RESP 18; RESP 20; TEMP 36.6; O2SAT 98; O2SAT 99; BMI 38.5
--- NOTE | 2021-12-12 13:27 | HMH.PMPROC ---
- Procedure Date: 12/12/21 Time: 13:27 Anesthesiologist:: NATY Greer Complications:: None Pre-procedure Diagnosis:: Degenerative disc disease of the cervical spine with cervical radiculopathy symptoms, postlaminectomy syndrome Post-procedure Diagnosis:: Same Indications for Procedure:: Patient is a pleasant 56-year-old female who presents today for intrathecal pain pump [refill] [and reprogram]. The patient is being treated for degenerative disc disease of the cervical and lumbar spine with cervical and lumbar radiculopathy symptoms, postlaminectomy syndrome. Patient is currently being managed with fentanyl 2400 mcg/mL at a rate of 319 mcg/day. Patient denies any side effects from this medication. Patient says that this is adequately managing her pain. Patient does not want an adjustment today. Patient states that she was taking baclofen previously. She was wondering if she can get some refills on this medication. Patient rates pain a 6 out of 10. Drug screen is appropriate. Brian [id number] has been reviewed and is appropriate. ORT score is low risk Physical exam General: Alert and oriented x3, no acute distress, pleasant and cooperative, [on room air] Lungs: Respirations even and unlabored, symmetrical chest expansion Eyes: PERRL Musculoskeletal: Flexion and extension of cervical and lumbar [spine] somewhat guarded secondary to pain, [antalgic gait noted] Neurological: Speech clear, no gross sensory deficit Procedure Details:: Informed consent was obtained and the risk and benefits of the procedure were explained to the patient. The patient was taken to the procedure room where noninvasive monitoring was placed including noninvasive blood pressure cuff and pulse oximeter. Patient's pump was interrogated. The area over the pump was cleansed with chlorhexidine as a cleansing solution. Fluoroscopy was used to access the pump. In sterile fashion the pump was accessed with a 22-gauge needle. Approximately 7 mls of the pump solution was removed and discarded appropriately. The pump was then refilled with 20 mL's of fentanyl 2400 mcg/mL. The needle was withdrawn and a bandage was placed over the puncture site. The infusion rate was reprogrammed and continued at fentanyl 319 mcg/day. The patient tolerated well with no complication. Plan and Disposition:: I will refill the patient's baclofen 10 mg daily #45. We will provide the patient with 2 months worth of refills. We will see the patient back in the clinic at the next intrathecal refill. Patient has been instructed to contact the clinic with any concerns before the next appointment. Dr. Capone has reviewed this note and agrees with this plan of care. This note was dictated using voice recognition software and make contain errors or omissions.
[2021-12-12 13:43] VITALS: BP 118/63; PULSE 72; RESP 20; O2SAT 98
== END 2021-12-12 13:43 | disposition home or self-care (01) ==
LOC: SC.PAINP 12:55
PROVIDERS: PCP Emergency Medicine; Visit Provider Student in an Organized Health Care Education/Training Program
DX: M50.10 Cervical disc disorder with radiculopathy, unspecified cervical region (principal); M96.1 Postlaminectomy syndrome, not elsewhere classified; Z45.1 Encounter for adjustment and management of infusion pump; I10 Essential (primary) hypertension; E78.5 Hyperlipidemia, unspecified; I25.2 Old myocardial infarction; K21.9 Gastro-esophageal reflux disease without esophagitis; E03.9 Hypothyroidism, unspecified; M19.90 Unspecified osteoarthritis, unspecified site; J45.909 Unspecified asthma, uncomplicated; Z87.891 Personal history of nicotine dependence; Z88.5 Allergy status to narcotic agent
CPT/HCPCS: 95991

== ENCOUNTER → 2022-01-05 12:49 | Outpatient (POV) | payer MEDICAID, SELFPAY ==
[2022-01-05 14:15] VITALS: BP 131/77; PULSE 77; RESP 18; TEMP 36.4; O2SAT 98; BMI 38.5
--- NOTE | 2022-01-05 14:25 | HMH.PAINSOAP ---
[facility] Pain Management SOAP Note Subjective:: Patient is a pleasant 56-year-old female who presents today for a follow-up. Patient is currently being treated for degenerative disc disease of the cervical spine with cervical radiculopathy symptoms. We are currently managing this patient with an intrathecal pump fentanyl 2400 mcg/mL at a rate of 319 mcg/day. Denies any side effects from his medication. Today, patient presents with worsening low back pain that started around 3 days ago. She states that she has been having trouble with moving. Her pain is worse when laying down or sitting down but better when she stands up. Denies any recent falls or traumas. Denies any loss of bowel and bladder functions. Rates pain today as 10 out of 10. [facility] #[id number] with an active morphine equivalent of 0. Review of Systems: General: No recent weight changes, no fever, no sleep disturbances Respiratory: No cough, no shortness of air, no recurring pulmonary infections Cardiovascular/peripheral vascular: No chest pain, no palpitations, no edema, no shortness of breath Gastrointestinal: No new onset incontinence, normal bowel movements reported Genitourinary: No new onset incontinence Musculoskeletal: Low back pain Psychiatric: [Normal mood/affect] Neurological: [Denies weakness in extremities], [denies balance issues] Objective:: Physical Exam: General: Alert and oriented x3, no acute distress, pleasant and cooperative, [on room air] Lungs: Respirations even and unlabored, symmetrical chest expansion Eyes: PERRL Musculoskeletal: Flexion and extension of cervical [spine] somewhat guarded secondary to pain, [antalgic gait noted]; patient is tender to palpation around the sacrum/coccyx area. Neurological: Speech clear, no gross sensory deficit Assessment:: Coccygodynia Degenerative disc disease of the cervical spine with cervical radiculopathy Plan:: Patient has been having worsening low back pain for the past 3 days. Denies any recent falls or traumas. She has not tried anything else for pain. This is worse when she lays down or sits down and better when she stands up. Her presentation exam is consistent with coccygodynia. We will start her on prednisone 20 mg twice a day for 5 days, baclofen 5 mg 3 times a day, diclofenac 75 mg twice a day. We will follow with this patient in 2 weeks. We will not make any adjustments in her intrathecal pain pump. Patient has been instructed to contact the clinic with any concerns before the next appointment. Dr. Capone has reviewed this note and agrees with this plan of care. This note was dictated using voice recognition software and make contain errors or omissions. [facility] History Medical History: Reports:: Asthma, Congestive Heart Failure, Coronary Artery Disease, Depression, Gastroesophageal Reflux Disease(GERD), Hyperlipidemia, Hypertension Denies:: Cancer, Diabetes Mellitus Type 1, Diabetes Mellitus Type 2, Internal Pacemaker, Lung Disease, MRSA, Seizures *Have you ever received a pneumonia vaccine?: No *Have you received a flu vaccine this season?: No Other Medical History: Reports: Arthritis, Hypothyroidism, Thyroid Disease, Other. Denies: Blood Transfusion Reaction Other Surgeries: Yes: No Previous Surgery, Cardiac Catheterization, Cholecystectomy, Colonoscopy, EGD, Hysterectomy-Total, Hysterectomy-Partial, Tubal Ligation, Other (pain pump implant). No: Pacemaker Amputation: No Fractures: No - *Social History Smoking Status: Former smoker Tobacco Type: cigarettes # Packs/Day (cigarettes): 1 #Yrs smoked (if former smoker): 20 Alcohol Intake: never Substance Use Type: denies use *Occupational Status:: disabled Housing: house Household Members: other *Travel in the last 8 weeks: None - Psychiatric History Pschychiatric History:: Reports:: Depression Family Hx:: Coronary Artery Disease, Heart Attack
== END ==
PROVIDERS: Visit Provider Student in an Organized Health Care Education/Training Program
DX: M50.10 Cervical disc disorder with radiculopathy, unspecified cervical region (principal); M53.3 Sacrococcygeal disorders, not elsewhere classified
CPT/HCPCS: 99212; G0463

== ENCOUNTER → 2022-01-19 11:38 | Outpatient (POV) | payer MEDICAID, SELFPAY ==
[2022-01-19 12:16] VITALS: BP 151/81; PULSE 85; RESP 18; TEMP 36.4; O2SAT 97; BMI 38.5
--- NOTE | 2022-01-19 13:18 | P.PCN_ITS ---
- Procedure Date: 01/19/22 Time: 13:18 Anesthesiologist:: NATY Greer Complications:: None Pre-procedure Diagnosis:: Degenerative disc disease of the cervical spine with cervical radiculopathy symptoms Post-procedure Diagnosis:: Same Indications for Procedure:: Patient is a pleasant 56-year-old female who presents today for follow-up. Patient is currently being treated for degenerative disc disease of the cervical spine with cervical radiculopathy symptoms. We are currently managing with intrathecal fentanyl 2400 mcg/mL at a rate of 319 mcg/day with PTC boluses of 20 mcg up to 6 times a day. Denies any side effects with his medication. We recently saw this patient for coccygodynia. I started the patient on prednisone 20 mg twice a day for 5 days, baclofen 5 mg 3 times a day and diclofenac 75 mg twice a day for 2 weeks. Patient states that her tailbone pain has completely resolved. Today, she is complaining of worsening neck pain. She feels like she needs an adjustment in her pain pump. She rates her pain today as 8 out of 10. [facility] #[id number] with an active morphine equivalent of 0. We plan to increase her intrathecal pain pump today. Physical Exam: General: Alert and oriented x3, no acute distress, pleasant and cooperative, [on room air] Lungs: Respirations even and unlabored, symmetrical chest expansion Eyes: PERRL Musculoskeletal: Flexion and extension of cervical [spine] somewhat guarded secondary to pain, [antalgic gait noted] Neurological: Speech clear, no gross sensory deficit Procedure Details:: Informed consent was obtained and the risk and benefits of the procedure were explained to the patient. Patient was taken to the procedure room where noninvasive monitoring was placed including noninvasive blood pressure cuff and pulse oximeter. Patient's pump was interrogated and was reprogrammed to intrathecal fentanyl 340 mcg per day. The patient tolerated the procedure well with no complications. Plan and Disposition:: We will see the patient back in the clinic at the next intrathecal refill. Patient has been instructed to contact the clinic with any concerns before the next appointment. Dr. Capone has reviewed this note and agrees with this plan of care. This note was dictated using voice recognition software and make contain errors or omissions.
== END ==
PROVIDERS: Visit Provider Student in an Organized Health Care Education/Training Program
DX: M50.10 Cervical disc disorder with radiculopathy, unspecified cervical region (principal); M19.90 Unspecified osteoarthritis, unspecified site; Z87.891 Personal history of nicotine dependence; E78.5 Hyperlipidemia, unspecified; I10 Essential (primary) hypertension; Z82.49 Family history of ischemic heart disease and other diseases of the circulatory system; J45.909 Unspecified asthma, uncomplicated; Z88.5 Allergy status to narcotic agent
CPT/HCPCS: 62368; 99213; G0463

== ENCOUNTER 2022-02-06 20:47 | Emergency (ER) | payer MEDICAID, SELFPAY ==
[2022-02-06 21:01] VITALS: BP 123/80; PULSE 85; RESP 19; TEMP 36.6; O2SAT 98; BMI 38.5
--- NOTE | 2022-02-06 21:03 | HMH.EDUTC ---
[facility] [place] Clinical Impression: Sinusitis Qualifiers: Sinusitis location: frontal Chronicity: acute Recurrence: non-recurrent Qualified Code(s): J01.10 - Acute frontal sinusitis, unspecified Pharyngitis Qualifiers: Pharyngitis/tonsillitis etiology: unspecified etiology Qualified Code(s): J02.9 - Acute pharyngitis, unspecified Disposition: Home, Self-Care Condition on Discharge: Good Instructions: Sinusitis, DI for Sinusitis, DI for Pharyngitis/Tonsillopharyngitis -- Adult Additional Instructions: Drink plenty of fluids. Take tylenol or ibuprofen for pain or fever. Take the medications as directed. Follow up with your regular doctor. GO TO THE ER FOR ANY WORSENING SYMPTOMS Prescriptions: Benzonatate [Benzonatate 100mg cap] 100 mg PO TIDP PRN #30 cap PRN Reason: Cough Transmission Status: Pending to [facility] methylPREDNISolone [Medrol] 4 mg PO DIRECTED 6 Days #21 packet Transmission Status: Pending to [facility] Azithromycin [Z-Logan 250mg Tab*] 250 mg PO UD DOSE PK #6 tab Transmission Status: Pending to [facility] Referrals: German Walter MD [Primary Care Provider] - Time of Disposition: 21:25 Medical Decision Making - Medical Records Medical records reviewed: No: I reviewed the patient's medical records. - Brian Inquiry Pt receiving controlled substance: No Vital Signs: 02/06/22 21:01 Temperature 97.9 F Temperature Source Oral Pulse Rate [Left Radial] 85 Respiratory Rate 19 Blood Pressure [Right Arm] 123/80 Blood Pressure Mean [Right Arm] 94 02 Sat by Pulse Oximetry 98 [facility] [place] - General Stated complaint: THROAT, AND EARS Time Seen by Provider: 02/06/22 21:04 Mode of Arrival: Ambulatory Source of Information: Patient Limitations: No Limitations Description of Symptoms (Recalled from Triage Doc. by RN): pt here with c/o sore throat and ear pain that has been going on for 4 days HEENT Symptoms (Recalled from RN notes): Yes Resp Symptoms (Recalled from RN notes): No Skin Symptoms (Recalled from RN notes): No MS Symptoms (Recalled from RN notes): No Functional Status (Recalled from RN notes): wnl - History of Present Illness Provider Complaint: She states that for the past 1 week she has had a sore throat, sinus drainage, runny nose, and malaise. She denies any fever. - Related Data Home Medications Medication Instructions Recorded Confirmed Fentanyl Citrate/Pf [Fentanyl 285 mcg IT DAILY 04/05/20 12/16/21 250mcg/5mL Vial] Fluticasone Propionate 1 spray INTRANASAL DAILY 01/06/21 12/16/21 buPROPion HCL [Wellbutrin SR 75mg See Rx Instructions .ROUTE .COMPLEX 06/13/21 12/16/21 Tablet] Omeprazole 40 mg PO QDAY 12/12/21 12/16/21 Baclofen 5 mg PO TID 01/19/22 Budesonide/Formoterol Fumarate See Rx Instructions .ROUTE .COMPLEX 01/19/22 [Budesonide-Formoterol 160-4.5] Diclofenac Sodium [Diclofenac 75mg 75 mg PO BID 01/19/22 Tab] Levothyroxine Sodium [Synthroid See Rx Instructions .ROUTE .COMPLEX 01/19/22 150mcg (0.15mg) tablet] predniSONE [Prednisone 20mg 20 mg PO BID 01/19/22 Tab] Previous Rx's Medication Instructions Recorded albuterol sulfate 90 mcg/actuation 1 puff INHALATION Q6H PRN #8.5 g 12/23/20 aerosol inhaler losartan 25 mg tablet 25 mg PO DAILY #90 tab 05/19/21 metoprolol succinate 25 mg 25 mg PO DAILY #90 tab 05/19/21 tablet,extended release 24 hr Naloxone HCl [Narcan] 4 mg NS ONCE PRN #1 ml 06/02/21 spironolactone 50 mg tablet 50 mg PO DIRECTED #90 tab 11/18/21 Baclofen [Lioresal 10mg tablet] 10 mg PO DAILY #45 tab 12/12/21 furosemide 40 mg tablet 40 mg PO DAILY #180 tab 12/16/21 sodium,potassium,mag sulfates 17.5 See Rx Instructions PO .COMPLEX 01/19/22 gram-3.13 gram-1.6 gram oral soln #354 ml Azithromycin [Z-Logan 250mg Tab*] 250 mg PO UD DOSE PK #6 tab 02/06/22 Benzonatate [Benzonatate 100mg 100 mg PO TIDP PRN #30 cap 02/06/22 cap] methylPREDNISolone [Medrol] 4
[2022-02-06 21:21] VITALS: BP 123/80; PULSE 85; RESP 19; TEMP 36.6
== END 2022-02-06 21:27 | disposition home or self-care (01) ==
PROVIDERS: Emergency Provider Nurse Practitioner Family; PCP Emergency Medicine
DX: J02.9 Acute pharyngitis, unspecified (principal); H92.03 Otalgia, bilateral; J01.10 Acute frontal sinusitis, unspecified; I11.0 Hypertensive heart disease with heart failure; I50.9 Heart failure, unspecified; I25.10 Atherosclerotic heart disease of native coronary artery without angina pectoris; K21.9 Gastro-esophageal reflux disease without esophagitis; E78.5 Hyperlipidemia, unspecified; E03.9 Hypothyroidism, unspecified; M19.90 Unspecified osteoarthritis, unspecified site; J45.909 Unspecified asthma, uncomplicated; F32.A Depression, unspecified; Z79.51 Long term (current) use of inhaled steroids; Z79.899 Other long term (current) drug therapy; Z87.891 Personal history of nicotine dependence; Z86.14 Personal history of Methicillin resistant Staphylococcus aureus infection; Z82.49 Family history of ischemic heart disease and other diseases of the circulatory system; R53.81 Other malaise
CPT/HCPCS: 99213; G0463

== ENCOUNTER → 2022-02-11 11:56 | Outpatient (CLI) | payer MEDICAID, SELFPAY | PROVIDERS: PCP Internal Medicine Cardiovascular Disease; Visit Provider Surgery | DX: Z01.812 Encounter for preprocedural laboratory examination (principal); Z20.822 Contact with and (suspected) exposure to COVID-19 | CPT/HCPCS: C9803; U0003; U0005 ==

== ENCOUNTER 2022-03-17 13:03 | Day surgery (SDC) | payer MEDICAID, SELFPAY ==
[2022-03-17 13:06] VITALS: BP 130/67; PULSE 60; RESP 20; TEMP 36.7; O2SAT 99; BMI 38.7
[2022-03-17 13:14] VITALS: BP 156/72; PULSE 71; RESP 20; O2SAT 97
[2022-03-17 13:29] VITALS: BP 129/71; PULSE 70; RESP 18; O2SAT 98
--- NOTE | 2022-03-17 13:45 | P.PCN_ITS ---
- Procedure Date: 03/17/22 Time: 13:46 Anesthesiologist:: Jamie Capone MD Complications:: None Pre-procedure Diagnosis:: Degenerative disc disease of the cervical spine with cervical radiculopathy symptoms. Post-procedure Diagnosis:: Same Indications for Procedure:: Patient is a pleasant 56-year-old white female who we are treating for neck pain with cervical radicular symptoms. She currently has an intrathecal fentanyl pain pump in place. She is going at 340 mcg/day with PTC boluses of 20 mcg up to 6 times a day. She is having some increasing pain symptoms today. We will increase her to 400 mcg/day. We will continue her PTC boluses as the same. We will refill her pump today. Brian and drug screen are all appropriate. Patient does not antalgic gait. Motor strength of the upper and lower extremities is 5/5. There is no gross sensory deficit. Procedure Details:: Informed consent was obtained and the risks and benefits of the procedure was e xplained to the patient. The patient was taken to the procedure room. The pump was interrogated. The area over the pump was prepped using ChloraPrep. The pump was accessed with a 22-gauge needle. Approximately 5 mL's of the intrathecal solution was withdrawn and discarded. The pump was then refilled with 20 mL's of intrathecal fentanyl 2400 mcg/mL. The pump was interrogated and the infusion was increased to 400 mcg/day. The patient tolerated the procedure well with no complication. Plan and Disposition:: We will follow-up with her at her next pump refill. This will be on or before May 31, 2022.
== END 2022-03-17 13:30 | disposition home or self-care (01) ==
LOC: SC.PAINP 13:04
PROVIDERS: PCP Internal Medicine Cardiovascular Disease; Visit Provider Anesthesiology
DX: M50.10 Cervical disc disorder with radiculopathy, unspecified cervical region (principal)
CPT/HCPCS: 62370

== ENCOUNTER → 2022-04-24 09:26 | Outpatient (CLI) | payer MEDICAID, SELFPAY ==
[2022-04-24 09:32] LABS: Coronavirus 19, PCR Not Detected (NotDetected); Influenza A, PCR Not Detected (NotDetected); Influenza B, PCR Not Detected (NotDetected)
== END ==
PROVIDERS: PCP Emergency Medicine; Visit Provider Surgery
DX: Z01.812 Encounter for preprocedural laboratory examination (principal); Z20.822 Contact with and (suspected) exposure to COVID-19; Z12.11 Encounter for screening for malignant neoplasm of colon
CPT/HCPCS: C9803; U0003; U0005

== ENCOUNTER 2022-04-25 10:29 | Day surgery (SDC) | payer MEDICAID, SELFPAY ==
[2022-04-21 12:38] VITALS: BMI 38.5
[2022-04-25 10:59] VITALS: BP 133/74; PULSE 68; RESP 17; TEMP 36.4; O2SAT 96
--- NOTE | 2022-04-25 11:22 | P.PN_ITS ---
[facility] Anesthesia Checklist - Patient Identification Patient Identification: Arm Band, Verbal (Name & ) - Structural Data Admitted From: Home Planned Operative Procedure/s: Colonoscopy Consent for Planned Operative Procedure(s) Verified: Yes Verified Documents: Surgical Consent - NPO Status Verified Time NPO: 06:00 - Additional verifications Anesthesia Reactions: No Hx Blood Transfusions: No Blood Transfusion Reaction: No - Airway Assessment C-Spine Mobility Assessed: Yes TMJ Mobility Assessed: Yes Dentition: Good Dentition - Neurological Assessment Level of Consciousness: Awake, Alert, Appropriate - Anesthesia Plan Anesthesia Risk discussed: Yes ASA Class: III Anesthesia Type: MAC [facility] History I have reviewed the patient's past medical history: Yes Medical History: Reports:: Asthma, Congestive Heart Failure, Coronary Artery Disease, Depression, Gastroesophageal Reflux Disease(GERD), Hyperlipidemia, Hypertension Denies:: Cancer, Diabetes Mellitus Type 1, Diabetes Mellitus Type 2, Internal Pacemaker, Lung Disease, MRSA, Seizures *Have you ever received a pneumonia vaccine?: No *Have you received a flu vaccine this season?: No Other Medical History: Reports: Arthritis, Hypothyroidism, Thyroid Disease, Other. Denies: Blood Transfusion Reaction Anesthesia experience/problems:: none Other Surgeries: Yes: No Previous Surgery, Cardiac Catheterization, Cholecystectomy, Colonoscopy, EGD, Hysterectomy-Total, Hysterectomy-Partial, Tubal Ligation, Other (pain pump implant). No: Pacemaker Amputation: No Fractures: No - *Social History Last grade of school completed: High school graduate Smoking Status: Never smoker Tobacco Type: cigarettes # Packs/Day (cigarettes): 1 #Yrs smoked (if former smoker): 20 Alcohol Intake: never Substance Use Type: denies use *Occupational Status:: unemployed Housing: house Household Members: other *Travel in the last 8 weeks: None - Psychiatric History Pschychiatric History:: Reports:: Depression Family Hx:: Cancer, Heart Attack
--- NOTE | 2022-04-25 11:34 | HMH.SCOPE ---
- Procedure: Date: 04/25/22 Patient Date of :: 1965 Procedure Performed:: Colonoscopy Indications:: History of colon polyps Colonoscopy in January 2018 revealed sigmoid diverticulosis and a large complex cecal polyp that was excised and tattooed. On her most recent colonoscopy in January 2021 this area appeared normal. However, large adjacent splenic flexure polyps were excised and determined to be sessile serrated adenomas. A new tattoo was placed at this site. Colonoscopies have been somewhat complicated by moderate to poor bowel preparation. Performing Provider:: Cipriano Bowser MD Referring Provider:: . Sedation:: Monitored anesthesia care Procedure:: After informed consent was obtained the patient was taken to the endoscopy suite. Sedation ensued after the patient was transferred to the left lateral decubitus position. Pulse, blood pressure, and oxygen saturation were monitored throughout the procedure. Digital rectal exam revealed no significant abnormality. The colonoscope was placed in position. The entire colon was evaluated. The colonoscope was carefully removed and the patient was transferred to recovery in stable condition. Please see findings and specimens below for detail. Findings:: Poor bowel preparation Hemorrhoidal tags Sigmoid diverticulosis No obvious abnormality and/around tattoo site at 45 cm Cecal/right colonic tattoo site not well visualized due to poor bowel preparation; however, no obvious mass lesion or stricture noted Specimens:: None Recommendations:: Repeat colonoscopy in 6-12 months with extended bowel preparation Complications:: No immediate with the exception of poor bowel preparation Estimated blood obtained (mL): 0
[2022-04-25 11:35] VITALS: O2SAT 96
[2022-04-25 12:09] VITALS: BP 107/76; PULSE 76; RESP 12; TEMP 36.4; O2SAT 92
[2022-04-25 12:19] VITALS: BP 110/68; PULSE 72; RESP 16; O2SAT 95
[2022-04-25 12:29] VITALS: BP 124/70; PULSE 77; RESP 16; O2SAT 96
[2022-04-25 12:39] VITALS: BP 116/79; PULSE 74; RESP 16; TEMP 36.4; O2SAT 96
== END 2022-04-25 12:40 | disposition home or self-care (01) ==
LOC: OUTP 10:30
PROVIDERS: PCP Emergency Medicine; Visit Provider Surgery
PROC: 0DJD8ZZ Inspection of Lower Intestinal Tract, Via Natural or Artificial Opening Endoscopic (ICD-10-PCS; CPT 45378; principal; 2022-04-25 11:30)
DX: Z12.11 Encounter for screening for malignant neoplasm of colon (principal); Z86.010 Personal history of colon polyps; Z79.899 Other long term (current) drug therapy
CPT/HCPCS: 45378; J2704

== ENCOUNTER 2022-06-06 08:42 | Day surgery (SDC) | payer MEDICAID, SELFPAY ==
[2022-06-06 08:54] VITALS: BP 163/58; PULSE 68; RESP 18; O2SAT 97
[2022-06-06 08:56] VITALS: BP 163/58; PULSE 73; RESP 18; O2SAT 96
--- NOTE | 2022-06-06 08:59 | P.PCN_ITS ---
Procedure Date: 06/06/22 Time: 08:59 Anesthesiologist:: Chau Ramos CRNA Complications:: None Pre-procedure Diagnosis:: Degenerative disc disease of cervical spine with cervical radiculopathy symptoms Post-procedure Diagnosis:: Same Indications for Procedure:: Patient is a pleasant 56-year-old female who presents today for intrathecal pain pump refill and follow-up. We are currently treating the patient for degenerative disc disease of cervical spine with cervical radiculopathy sympt oms. She is currently managed with a fentanyl pain pump at 400 mcg/day. Today the patient rates her pain a 6 out of 10. Patient denies any new trauma or injury to the site. Patient denies any change to the location or type of pain she experiences. Her Brian is [phone] with a morphine equivalent of 0. It has been reviewed and appropriate. Procedure Details:: Informed consent was obtained and the risk and benefits of the procedure were explained to the patient. The patient was taken to the procedure room where noninvasive monitoring was placed including a noninvasive blood pressure cuff and pulse oximeter. Patient's pump was interrogated. The area over the pump was cleansed with a chlorhexidine as a cleansing solution. In a sterile fashion the pump was accessed using a 22-gauge needle. From the interrogation of the system 4.3 mL was expected. Approximately 5 mL of pump solution was removed and discarded appropriately. The pump was then refilled with 20 mL of fentanyl 2400 mcg/mL. The needle was withdrawn and a bandage was placed over the puncture site. The infusion rate was continued at fentanyl 400 mcg/mL. The patient tolerated the procedure well with no complication. Plan and Disposition:: We will see the patient back in clinic at the next intrathecal refill date. Patient has been instructed to contact the clinic with any concerns before the next appointment. Dr. Capone has reviewed this note and agrees with this plan of care. This note was dictated using voice recognition software and may contain errors or omissions.
[2022-06-06 09:20] VITALS: BP 119/67; PULSE 62; RESP 20; O2SAT 97
== END 2022-06-06 09:21 | disposition home or self-care (01) ==
PROVIDERS: PCP Emergency Medicine; Visit Provider Nurse Anesthetist, Certified Registered
DX: M50.10 Cervical disc disorder with radiculopathy, unspecified cervical region (principal)
CPT/HCPCS: 95991

== ENCOUNTER → 2022-06-12 07:39 | Outpatient (CLI) | payer MEDICAID, SELFPAY ==
[2022-06-12 20:29] LABS: Basophils # 0.2 K/mm3 (0-0.2); Basophils % 3.1 % (0.1-2.0); Eosinophils # 0.2 K/mm3 (0.0-0.4); Eosinophils % 4.1 % (0.1-12.0); Hematocrit 44.4 % (37.0-47.0); Hemoglobin 14.3 g/dL (12.2-16.2); Lymphocytes # 1.6 K/mm3 (0.7-4.5); Lymphocytes % 27.7 % (10-50); Mean Corpuscular HGB Conc 32.1 g/dL (31.8-35.4); Mean Corpuscular Hemoglobin 29.3 pg (27.0-31.2); Mean Corpuscular Volume 91.2 fl (81-99); Mean Platelet Volume 9.1 fl (7.4-10.4); Monocytes # 0.3 K/mm3 (0.1-1.0); Monocytes % 5.2 % (1.7-9.3); Neutrophils # 3.5 K/mm3 (1.8-7.8); Neutrophils % 59.8 % (37.0-80.0); Platelet Count 331 K/mm3 (142-424); Red Blood Count 4.86 M/mm3 (4.20-5.40); Red Cell Distribution Width 14.1 % (11.5-17.5); White Blood Count 5.8 K/mm3 (4.8-10.8)
[2022-06-12 20:42] LABS: Alanine Aminotransferase 43 U/L (12-78); Albumin/Globulin Ratio 1.5 (1.1-1.8); Alkaline Phosphatase 117 U/L (38-126); Anion Gap 13.2 mEq/L (5-15); Aspartate Amino Transferase 44 U/L (14-36); Bilirubin,Total 0.6 mg/dl (0.2-1.3); Blood Urea Nitrogen 11 mg/dl (7-17); Calcium 8.9 mg/dl (8.4-10.2); Carbon Dioxide 28 mmol/L (22.0-30.0); Chloride 103 mmol/L (98-107); Chol/HDL Ratio 3.5 (1-3.5); Cholesterol 162 mg/dl (140-200); Estimated Glomerular Filt Rate 103 ml/min (>60); GFR (African American) 125 ML/MIN (>60); Globulin 2.7 g/dL (1.3-3.2); Glucose 118 mg/dl (74-100); HDL Cholesterol 46 mg/dl (40-60); Potassium 4.2 mmoL/L (3.5-5.1); Sodium 140 mmol/L (136-145); Total Protein,Serum 6.7 g/dl (6.3-8.2); Triglycerides 113 mg/dl (30-150); VLDL Cholesterol 23 mg/dL (0-40)
[2022-06-12 20:54] LABS: Direct LDL Cholesterol 99.01 mg/dL (100-129)
[2022-06-12 21:13] LABS: Thyroid Stimulating Hormone 3.44 uIU/mL (0.465-4.68)
[2022-06-12 21:32] LABS: Vitamin B12 499 pg/mL (239-931)
[2022-06-13 12:09] LABS: Hemoglobin A1C 5.3 % (4.0-6.0)
== END ==
PROVIDERS: PCP Physician Assistant; Visit Provider Physician Assistant
DX: E03.9 Hypothyroidism, unspecified (principal); R73.09 Other abnormal glucose; E66.9 Obesity, unspecified; Z68.38 Body mass index [BMI] 38.0-38.9, adult; Z79.899 Other long term (current) drug therapy
CPT/HCPCS: 80053; 80061; 82306; 82607; 83036; 84443; 85025

== ENCOUNTER → 2022-06-16 13:40 | Outpatient (CLI) | payer MEDICAID, SELFPAY ==
--- NOTE | 2022-06-16 13:40 | MM_ITS ---
PROCEDURE INFORMATION: Exam: MG Bilateral Screening 3D Mammography Exam date and time: 06/16/2022 1:43 PM Age: 56 years old Clinical indication: Screening examination TECHNIQUE: Imaging protocol: Bilateral Screening tomosynthesis and 2D mammography including computer-aided detection (CAD) when performed. COMPARISON: 1. MG MM DIG MAMM BI DX W/CAD 08/13/2020 2:06 PM 2. MG MM DIG MAMM BI DX W/CAD 02/03/2020 2:23 PM FINDINGS: MAMMOGRAPHY: Breast composition: There are scattered areas of fibroglandular density. Mass: None. Architectural distortion: None. Calcifications: No suspicious calcifications. Asymmetric density: None. Skin thickening: None. Axillary adenopathy: None. IMPRESSION: No mammographic evidence of malignancy. Annual screening is recommended unless otherwise clinically indicated. ASSESSMENT: BI-RADS Category 1: Negative
== END ==
PROVIDERS: PCP Physician Assistant; Visit Provider Physician Assistant
DX: Z12.31 Encounter for screening mammogram for malignant neoplasm of breast (principal)
CPT/HCPCS: 77063; 77067

== ENCOUNTER 2022-08-03 10:54 | Emergency (ER) | payer MEDICAID, SELFPAY ==
--- NOTE | 2022-08-03 12:21 | EXP.UTC ---
Discharge Plan Disposition Patient Disposition: Home, Self-Care Condition: Good Prescriptions Prescriptions: New prednisone 10 mg tablet 10 mg PO DIRECTED 9 Days Qty: 21 0RF Rx Instructions: Take 4 tablets daily for 3 days, then take 2 tablets daily for 3 days, then take 1 tablet daily for 3 days, then stop. acyclovir 800 mg tablet 800 mg PO 5XDAY 7 Days Qty: 35 0RF ibuprofen [IBU] 800 mg tablet 800 mg PO Q8HP PRN (Reason: Moderate Pain) Qty: 30 0RF No Action albuterol sulfate 90 mcg/actuation HFA aerosol inhaler 1 puff IH Q6H PRN (Reason: shortness of breath or wheezing) Qty: 8.5 12RF losartan 25 mg tablet 25 mg PO DAILY Qty: 90 3RF spironolactone 50 mg tablet 50 mg PO BID Qty: 180 3RF Vraylar 1.5 mg capsule 1.5 mg PO DAILY Qty: 30 2RF furosemide 40 mg tablet See Rx Instructions .ROUTE .COMPLEX Qty: 180 2RF Dose Instruction: TAKE ONE TABLET BY MOUTH TWICE A DAY FOR HEART FAILURE Rx Instructions: TAKE ONE TABLET BY MOUTH TWICE A DAY FOR HEART FAILURE metoprolol succinate 25 mg tablet extended release 24 hr See Rx Instructions .ROUTE .COMPLEX Qty: 90 2RF Dose Instruction: TAKE ONE TABLET BY MOUTH EVERY DAY FOR BLOOD PRESSURE Rx Instructions: TAKE ONE TABLET BY MOUTH EVERY DAY FOR BLOOD PRESSURE fentanyl citrate (PF) 50 MCG/ML solution 285 mcg IT DAILY Rx Instructions: intrathecal pain pump medication. actual concentration is 2400Mcg/ml in a 20ml pump. baclofen 10 MG tablet 10 mg PO DAILY fluticasone propionate 16 GM spray,suspension 1 spray NS DAILY Rx Instructions: administer into each nostril levothyroxine 150 MCG tablet See Rx Instructions .Route .COMPLEX Rx Instructions: TAKE 1 TABLET BY MOUTH ONCE DAILY FOR THYROID omeprazole 40 mg capsule,delayed release(DR/EC) See Rx Instructions .ROUTE .COMPLEX Rx Instructions: TAKE 1 CAPSULE BY MOUTH ONCE DAILY Linzess 145 mcg Capsule 145 mcg PO DAILY Referrals Follow up/Referrals: Kierra Ratliff PA [Primary Care Provider] - See instructions Activity Restrictions/Add. Instructions Additional Instructions/Restrictions: Drink plenty of fluids. Take ibuprofen for pain or fever. Take the medications as directed. Drink plenty of fluids with the medications. Follow up with your regular doctor. GO TO THE ER FOR ANY WORSENING SYMPTOMS Clinical Impressions Clinical Impression: Shingles Instructions Patient Instructions: CHANCE Collazo for Shingles Discharge ED Provider: Dewey Trotter [facility] HPI General Stated complaint: Possible shingles Time Seen by Provider: 08/03/22 12:20 History of Present Illness Provider Complaint: She states that for the past 3 days she has had a painful rash that is extending down her left arm. The lesions extend from her axilla to the palm of her hand. Related Data Home Medications Medication Instructions Recorded Confirmed fentanyl citrate (PF) 50 mcg/mL 285 mcg intrathecal DAILY chronic 04/05/20 07/17/22 injection solution pain fluticasone propionate 50 1 spray intranasal DAILY allergies 01/06/21 07/17/22 mcg/actuation nasal spray,suspension levothyroxine 150 mcg tablet See Rx Instructions .Route 01/19/22 07/17/22 .COMPLEX THYROID baclofen 10 mg tablet 10 mg PO DAILY muscle relaxer 04/21/22 07/17/22 linaclotide 145 mcg capsule 145 mcg PO DAILY constipation 06/06/22 07/17/22 (Linzess) omeprazole 40 mg capsule,delayed See Rx Instructions .Route 06/06/22 07/17/22 release .COMPLEX GERD Previous Rx's Medication Instructions Recorded albuterol sulfate 90 mcg/actuation 1 puff inhalation Q6H PRN 12/23/20 aerosol inhaler shortness of breath or wheezing #8.5 grams losartan 25 mg tablet 25 mg PO DAILY blood pressure #90 05/19/21 tabs spironolactone 50 mg tablet 50 mg PO BID Heart failure #180 03/17/22 tabs cariprazine 1.5 mg capsule 1.5 mg PO
[2022-08-03 12:33] VITALS: BP 146/85; PULSE 68; RESP 16; TEMP 36.9; O2SAT 96; BMI 38.5
[2022-08-03 12:57] VITALS: BP 146/85; PULSE 68; RESP 16; TEMP 36.9
== END 2022-08-03 12:58 | disposition home or self-care (01) ==
PROVIDERS: Emergency Provider Nurse Practitioner Family; PCP Physician Assistant
DX: R06.02 Shortness of breath (principal); B02.9 Zoster without complications; R21 Rash and other nonspecific skin eruption; I11.0 Hypertensive heart disease with heart failure; I50.30 Unspecified diastolic (congestive) heart failure; M54.2 Cervicalgia; K21.9 Gastro-esophageal reflux disease without esophagitis; E78.5 Hyperlipidemia, unspecified; E03.9 Hypothyroidism, unspecified; G89.29 Other chronic pain; K59.09 Other constipation; M72.2 Plantar fascial fibromatosis; Z79.1 Long term (current) use of non-steroidal anti-inflammatories (NSAID); Z79.51 Long term (current) use of inhaled steroids; Z79.52 Long term (current) use of systemic steroids; Z79.899 Other long term (current) drug therapy; Z88.5 Allergy status to narcotic agent; Z87.891 Personal history of nicotine dependence; Z82.49 Family history of ischemic heart disease and other diseases of the circulatory system; M77.30 Calcaneal spur, unspecified foot; Z86.010 Personal history of colon polyps
CPT/HCPCS: 99213; G0463

== ENCOUNTER → 2022-08-11 08:54 | Day surgery (SDC) | payer MEDICAID, SELFPAY ==
[2022-08-11 08:59] VITALS: BP 144/83; PULSE 71; RESP 18; O2SAT 98; BMI 38.5
[2022-08-11 09:11] VITALS: BP 135/78; PULSE 64; RESP 18; O2SAT 96
[2022-08-11 09:19] VITALS: BP 125/79; PULSE 65
--- NOTE | 2022-08-11 09:20 | EXP.PAIN.PRO ---
Procedure Date: 08/11/22 Time: 09:12 Anesthesiologist:: Chau Ramos CRNA Complications:: None Pre-procedure Diagnosis:: Degenerative disc disease of cervical spine with cervical radiculopathy symptoms Post-procedure Diagnosis:: Same Indications for Procedure:: Patient is a pleasant 57-year-old female who presents today for intrathecal pain pump refill and adjustment. We are currently treating the patient for degenerative disc disease of the cervical spine with cervical radiculopathy symptoms. Today she rates her pain a 7 out of 10. Patient denies any new trauma or injury. Patient denies any change of location or type of pain she experiences. Patient is currently managed with fentanyl at 2400 mcg/mL with a daily dose of 400 mcg/day. Patient denies any side effects from this medication. She states this medication does help her pain symptoms. She is requesting a small increase adjustment at today's visit. General: Alert and oriented x3, no acute distress, pleasant and cooperative Lungs: Respiration even unlabored, symmetrical chest expansion Eyes: PERRL Musculoskeletal: Flexion and extension of cervical spine somewhat guarded secondary to pain, antalgic gait noted Neurological: Speech clear, no gross sensory deficit Procedure Details:: Informed consent was obtained and the risk and benefits of the procedure were explained to the patient. The patient was taken to the procedure room where noninvasive monitoring was placed on the patient including noninvasive blood pressure cuff and pulse oximeter. The patient's pump was then interrogated with 8 mL of solution expected. The area over the pump was cleansed with chlorhexidine as a cleansing solution. Using a 22-gauge needle and a aseptic technique the pump was accessed and 7.8 mL of solution was removed and discarded appropriately. The pump was then refilled with fentanyl 2400 mcg/mL with a daily dose of 420 mcg/day. Needle was removed and a sterile bandage was applied to the site. Patient tolerated the procedure well with no complications. Plan and Disposition:: Patient was monitored for short period of time in the clinic and then discharged fundamentally intact. Patient will return to clinic for her next intrathecal pain pump refill date. Patient has been counseled to contact the office with any questions or concerns before the next appointment date. Dr. Capone has read this note and agrees with this plan of care. This note was dictated using voice recognition software and may contain errors or omissions.
== END | disposition home or self-care (01) ==
PROVIDERS: PCP Physician Assistant; Visit Provider Anesthesiology
DX: M50.10 Cervical disc disorder with radiculopathy, unspecified cervical region (principal)
CPT/HCPCS: 62370

== ENCOUNTER 2022-10-17 08:36 | Day surgery (SDC) | payer MEDICAID, SELFPAY ==
[2022-10-17 08:57] VITALS: BP 114/69; PULSE 78; RESP 18; TEMP 36.3; O2SAT 96; BMI 38.5
[2022-10-17 09:07] VITALS: BP 125/83; PULSE 74; RESP 18; O2SAT 98
[2022-10-17 09:08] VITALS: BP 125/83; PULSE 74; RESP 18; O2SAT 98
[2022-10-17 09:21] VITALS: BP 119/72; PULSE 71; RESP 18; O2SAT 99
--- NOTE | 2022-10-17 09:35 | EXP.PAIN.PRO ---
Procedure Date: 10/17/22 Time: 09:15 Anesthesiologist:: Chau Ramos CRNA Complications:: None Pre-procedure Diagnosis:: Degenerative disc disease cervical spine. Cervical radiculopathy symptoms. Post-procedure Diagnosis:: Same. Indications for Procedure:: Patient is a pleasant 57-year-old female presents today for intrathecal pain pump refill and interrogation. She is currently being managed with fentanyl 2400 mcg/mL at 420 mcg/day. Patient does not request any changes in her current settings. She is doing very well. Procedure Details:: Details of the procedure explained the patient. The patient taken to procedure room placed in sitting position. The area over the pump was cleansed using chlorhexidine as a cleansing solution. Using a 22-gauge inch and half needle the pump was accessed with ease. 6.8 mL of fluid was removed and discarded appropriately. The pump was then filled with 20 cc of fentanyl 2400 mcg/mL. Patient tolerated procedure without difficulty. There are no complications. Plan and Disposition:: Patient was discharged without incident.
== END 2022-10-17 09:21 | disposition home or self-care (01) ==
LOC: SC.PAINP 08:37
PROVIDERS: PCP Physician Assistant; Visit Provider Nurse Anesthetist, Certified Registered
DX: Z45.1 Encounter for adjustment and management of infusion pump (principal); M50.10 Cervical disc disorder with radiculopathy, unspecified cervical region
CPT/HCPCS: 95991

== ENCOUNTER 2022-12-19 09:36 | Day surgery (SDC) | payer MEDICAID, SELFPAY ==
[2022-12-19 09:50] VITALS: BP 128/92; PULSE 89; RESP 18; TEMP 36.4; O2SAT 100; BMI 38.5
[2022-12-19 10:00] VITALS: BP 129/77; PULSE 74; RESP 18; O2SAT 99
[2022-12-19 10:01] VITALS: BP 129/77; PULSE 74; RESP 18; O2SAT 99
--- NOTE | 2022-12-19 10:15 | EXP.PAIN.PRO ---
Procedure Date: 12/19/22 Time: 10:10 Anesthesiologist:: Chau Ramos CRNA Complications:: None Pre-procedure Diagnosis:: Degenerative disc disease cervical spine multilevels. Cervical radiculopathy. Cervical postlaminectomy syndrome. Post-procedure Diagnosis:: Same. Indications for Procedure:: Patient is a very pleasant 57-year-old female comes our clinic today for intrathecal pain pump interrogation and refill. She is currently being managed with fentanyl 2400 mcg/mL at 420 mcg/day. Patient requesting increase today. She states that she is having some increased low back pain and neck pain with sweeping and other housework chores. Procedure Details:: Details of the procedure were explained to the patient. The patient taken procedure room placed in sitting position. The area over the pump was cleansed using chlorhexidine as a cleansing solution. The pump was interrogated. The pump was accessed with ease using a 22-gauge inch and half needle. 8 mL of solution was withdrawn and discarded appropriately. The pump was then filled with 20 mL of fentanyl sulfate 2400 mcg/mL the pump will be increased by 3%. The new rate will be 432.6 mcg/day. Patient tolerated procedure without difficulty. There are no complications Plan and Disposition:: Patient was discharged without incident.
[2022-12-19 10:18] VITALS: BP 117/76; PULSE 72; RESP 18; O2SAT 100
== END 2022-12-19 10:18 | disposition home or self-care (01) ==
PROVIDERS: PCP Physician Assistant; Visit Provider Nurse Anesthetist, Certified Registered
DX: Z45.1 Encounter for adjustment and management of infusion pump (principal); M50.10 Cervical disc disorder with radiculopathy, unspecified cervical region; M96.1 Postlaminectomy syndrome, not elsewhere classified
CPT/HCPCS: 62370

== ENCOUNTER 2023-02-13 10:17 | Day surgery (SDC) | payer MEDICAID, SELFPAY ==
[2023-02-13 10:42] VITALS: BP 129/69; PULSE 80; RESP 18; TEMP 36.3; O2SAT 99; BMI 38.5
[2023-02-13 11:19] VITALS: BP 118/71; PULSE 75; RESP 18; O2SAT 97
[2023-02-13 11:20] VITALS: BP 118/71; PULSE 75; RESP 18; O2SAT 97
[2023-02-13 11:30] VITALS: BP 109/61; PULSE 74; RESP 18; O2SAT 99
--- NOTE | 2023-02-13 11:42 | EXP.PAIN.PRO ---
Procedure Date: 02/13/23 Time: 11:10 Anesthesiologist:: Chau Ramos CRNA Complications:: None Pre-procedure Diagnosis:: Degenerative disc disease lumbar spine multilevels. Lumbar radiculopathy. Cervical degenerative disc disease. Cervical radiculopathy. Cervical postlaminectomy syndrome. Post-procedure Diagnosis:: Same. Indications for Procedure:: Patient is a very pleasant 57-year-old female comes our clinic today for intrathecal pain pump interrogation refill. Patient currently being managed with fentanyl 2400 mcg/mL at 432.6 mcg/day. She is doing very well with her current settings. She does not report any side effects or complications with her current intrathecal pain pump management. Procedure Details:: Details of the procedure explained to the patient. The patient taken the procedure room placed in the sitting position. The area over the pump was cleansed using chlorhexidine as a cleansing solution. The pump was interrogated. The pump was then accessed with ease using a 22-gauge inch and a half needle. 5 mL of solution was withdrawn and discarded appropriately. The pump was then filled with 20 cc incrementally of fentanyl 2400 mcg/mL. Plan and Disposition:: Patient was discharged without incident.
== END 2023-02-13 11:30 | disposition home or self-care (01) ==
PROVIDERS: PCP Physician Assistant; Visit Provider Nurse Anesthetist, Certified Registered
DX: Z45.1 Encounter for adjustment and management of infusion pump (principal); M50.10 Cervical disc disorder with radiculopathy, unspecified cervical region; M96.1 Postlaminectomy syndrome, not elsewhere classified
CPT/HCPCS: 95991

== ENCOUNTER 2023-04-17 09:35 | Day surgery (SDC) | payer MEDICAID, SELFPAY ==
[2023-04-17 09:50] VITALS: BP 147/71; PULSE 76; RESP 18; TEMP 36.6; O2SAT 98; BMI 27.4
[2023-04-17 10:15] VITALS: BP 141/84; PULSE 66; RESP 20; O2SAT 99
[2023-04-17 10:35] VITALS: BP 130/58; PULSE 60; RESP 18; O2SAT 98
--- NOTE | 2023-04-17 10:37 | EXP.PAIN.PRO ---
Procedure Date: 04/17/23 Time: 10:00 Anesthesiologist:: Chau Ramos CRNA Complications:: None Pre-procedure Diagnosis:: Degenerative disc lumbar spine multilevels. Lumbar radiculopathy. Degenerative disc cervical spine cervical radiculopathy. Cervical postlaminectomy syndrome. Post-procedure Diagnosis:: Same. Indications for Procedure:: Patient is a very pleasant 57-year-old female that comes our clinic today for intrathecal pain pump interrogation refill. She is currently being managed with fentanyl 2400 mg/mL at 432.6 mcg/day. Patient doing very well with her current settings. She does not report any side effects or complications. Procedure Details:: Details of the procedure explained the patient. The patient taken procedure room placed in the sitting position. The area over the pump was cleansed using chlorhexidine cleansing solution. The pump was interrogated. The pump was accessed with ease using a 22-gauge inch and half needle. 6.5 mL solution was withdrawn and discarded appropriately. The pump was then filled with fentanyl 2400 mcg/mL. Patient tolerated procedure without difficulty. No complications. Rate will remain the same. Plan and Disposition:: Patient was discharged without incident.
== END 2023-04-17 10:30 | disposition home or self-care (01) ==
LOC: SC.PAINP 09:35
PROVIDERS: PCP Physician Assistant; Visit Provider Nurse Anesthetist, Certified Registered
DX: M51.16 Intervertebral disc disorders with radiculopathy, lumbar region (principal); M50.10 Cervical disc disorder with radiculopathy, unspecified cervical region; M96.1 Postlaminectomy syndrome, not elsewhere classified
CPT/HCPCS: 95991

== ENCOUNTER 2023-06-19 09:40 | Day surgery (SDC) | payer MEDICAID, SELFPAY ==
[2023-06-19 09:00] VITALS: BP 154/90; PULSE 65; RESP 16; TEMP 36.2; O2SAT 98; BMI 32.9
--- NOTE | 2023-06-19 10:09 | EXP.PAIN.PRO ---
Procedure Date: 06/19/23 Time: 10:00 Anesthesiologist:: Chau Ramos CRNA Complications:: None Pre-procedure Diagnosis:: Degenerative disc lumbar spine multilevels. Lumbar radiculopathy. Degenerative disc cervical spine multiple levels. Cervical radiculopathy. Cervical postlaminectomy syndrome. Post-procedure Diagnosis:: Same. Indications for Procedure:: Patient is a pleasant 57-year-old female that comes our clinic today for intrathecal pain pump interrogation and refill. Patient currently being managed with fentanyl 2400 mcg/mL at a rate of 432.6 mcg/day. Patient doing very well with her current settings. She does not request any changes. Procedure Details:: UponDetails of the procedure explained to the patient. The patient was taken the procedure room placed in the sitting position. The area of the pump was cleansed using chlorhexidine as a cleansing solution. Interrogated. The pump was accessed with ease using 22-gauge inch and half needle. 7.8 mL of solution was withdrawn discarded appropriately. The pump was then filled with 20 cc of a solution containing fentanyl 2400 mcg/mL. The rate will continue at 432.6 mcg/day. Plan and Disposition:: Patient was discharged out incident.
[2023-06-19 10:10] VITALS: BP 130/82; PULSE 62; RESP 16; O2SAT 98
[2023-06-19 10:48] LABS: Amphetamine/Metha Screen,Urine Negative ng/ml (<1000); Benzodiazepines Screen,Urine Negative ng/ml (<200)
[2023-06-19 10:49] LABS: Barbiturates Screen,Urine Negative ng/ml (<200)
[2023-06-19 10:50] LABS: Cannabinoid Screen,Urine Negative ng/ml (<50); Methadone Screen,Urine Negative ng/ml (<300)
[2023-06-19 10:51] LABS: Cocaine Screen,Urine Negative ng/ml (<300); Phencyclidine Screen,Urine Negative ng/ml (<25)
[2023-06-19 10:52] LABS: Opiate Screen,Urine Negative ng/ml (<300)
[2023-06-19 11:30] VITALS: BP 144/78; PULSE 64; RESP 18; O2SAT 97
[2023-06-19 11:32] VITALS: BP 144/78; PULSE 64; RESP 18; O2SAT 98
[2023-06-24 08:50] LABS: Opiates Negative (Cutoff=100)
== END 2023-06-19 10:10 | disposition home or self-care (01) ==
PROVIDERS: PCP Physician Assistant; Visit Provider Nurse Anesthetist, Certified Registered
DX: M51.16 Intervertebral disc disorders with radiculopathy, lumbar region (principal); M50.10 Cervical disc disorder with radiculopathy, unspecified cervical region; M96.1 Postlaminectomy syndrome, not elsewhere classified; Z97.8 Presence of other specified devices
CPT/HCPCS: 80305; 80361; 80365; 95991; G0480

== ENCOUNTER 2023-08-21 09:43 | Day surgery (SDC) | payer MEDICAID, SELFPAY ==
[2023-08-21 09:48] VITALS: BP 145/88; PULSE 73; RESP 16; TEMP 36.4; O2SAT 97; BMI 30.2
[2023-08-21 09:58] VITALS: BP 139/67; PULSE 67; RESP 18; O2SAT 97
[2023-08-21 10:00] VITALS: BP 139/67; PULSE 65; RESP 18; O2SAT 97
[2023-08-21 10:12] VITALS: BP 143/81; PULSE 58; RESP 18; O2SAT 97
--- NOTE | 2023-08-21 10:22 | EXP.PAIN.PRO ---
Procedure Date: 08/21/23 Time: 09:45 Anesthesiologist:: Chau Ramos CRNA Complications:: None Pre-procedure Diagnosis:: Degenerative disc lumbar spine multilevels. Lumbar radiculopathy. Degenerative disc cervical spine multilevels. Cervical radiculopathy. Cervical postlaminectomy syndrome. Post-procedure Diagnosis:: Same. Indications for Procedure:: Patient is a very pleasant 57-year-old female comes our clinic today for intrathecal pain pump interrogation refill. She is currently being managed with fentanyl 2400 mcg/mL at a rate of 432.6 mcg/day. She is doing very well with her current settings. She does not report any side effects or complications. Procedure Details:: Details of the procedure explained to the patient. The patient taken procedure room placed in the sitting position. The area over the pump was cleansed using chlorhexidine's cleansing solution. The pump was interrogated. The pump was accessed with ease using a 22-gauge inch and half needle. 7 mL of fluid was withdrawn from the pump and disposed of properly. The pump was then filled with 20 cc of a solution containing fentanyl 2400 mcg/mL. Patient tolerated procedure difficulty. There were no complications. Plan and Disposition:: Patient was discharged without incident.
== END 2023-08-21 10:12 | disposition home or self-care (01) ==
PROVIDERS: PCP Physician Assistant; Visit Provider Nurse Anesthetist, Certified Registered
DX: M51.16 Intervertebral disc disorders with radiculopathy, lumbar region (principal); M50.10 Cervical disc disorder with radiculopathy, unspecified cervical region; M96.1 Postlaminectomy syndrome, not elsewhere classified; Z97.8 Presence of other specified devices
CPT/HCPCS: 95991

== ENCOUNTER 2023-10-23 09:44 | Day surgery (SDC) | payer MEDICAID, SELFPAY ==
[2023-10-23 10:01] VITALS: BP 151/83; PULSE 70; RESP 16; TEMP 36.4; O2SAT 99; BMI 30.2
[2023-10-23 10:19] VITALS: BP 139/73; PULSE 64; RESP 18; O2SAT 96
[2023-10-23 10:20] VITALS: BP 130/65; PULSE 60; RESP 18; O2SAT 99
[2023-10-23 10:25] VITALS: BP 139/73; PULSE 64; RESP 18; O2SAT 96
--- NOTE | 2023-11-13 07:42 | P.PCN_ITS ---
Procedure Date: 10/23/23 Time: 10:15 Anesthesiologist:: Chau Ramos CRNA Complications:: None Pre-procedure Diagnosis:: Degenerative disc disease lumbar spine multilevels. Lumbar radiculopathy. Degenerative disc cervical spine multilevels. Cervical radiculopathy. Cervical postlaminectomy syndrome. Post-procedure Diagnosis:: Same Indications for Procedure:: Patient is a pleasant 57-year-old female that comes our clinic today for intrathecal pain pump interrogation and refill. Patient doing very well with her current settings. However, patient mentions some increasing low back pain related to increased activity. Patient also reporting since the weather turns cold she has been having some increased low back pain. She is requesting an increase in the rate of the intrathecal pain pump. I think this is reasonable. We will increase her rate by 5%. She is currently being managed with fentanyl 2400 mcg/mL at a rate of 432.6 mcg/day. Procedure Details:: Details of the procedure explained to the patient. The patient was taken to the procedure room placed in the seated position. The area over the pump was cleansed with chlorhexidine cleansing solution. The pump was interrogated. The pump was accessed with ease using 22-gauge inch and a half needle. A mL of solution was withdrawn and discarded as appropriate. The pump was then filled with 20 cc of solution containing fentanyl 240 0 mcg/ML. The rate will be incre ased by 5%. Her new rate will be 454.0 mcg/day. The patient tolerated the procedure without difficulty. There are no complications. Plan and Disposition:: Patient was discharged without an
== END 2023-10-23 10:20 | disposition home or self-care (01) ==
LOC: SC.PAINP 09:45
PROVIDERS: PCP Physician Assistant; Visit Provider Nurse Anesthetist, Certified Registered
DX: M51.16 Intervertebral disc disorders with radiculopathy, lumbar region (principal); M50.10 Cervical disc disorder with radiculopathy, unspecified cervical region; M96.1 Postlaminectomy syndrome, not elsewhere classified; Z97.8 Presence of other specified devices; Z45.1 Encounter for adjustment and management of infusion pump
CPT/HCPCS: 95991

== ENCOUNTER 2023-12-11 09:17 | Day surgery (SDC) | payer MEDICAID, SELFPAY ==
[2023-12-11 09:40] VITALS: BP 122/65; PULSE 82; RESP 18; TEMP 36.5; O2SAT 100; BMI 29.2
[2023-12-11 09:54] VITALS: BP 130/78; PULSE 67; RESP 18; O2SAT 97
[2023-12-11 09:55] VITALS: BP 130/78; PULSE 67; RESP 18; O2SAT 98
[2023-12-11 10:00] VITALS: BP 114/65; PULSE 66; RESP 18; O2SAT 100
--- NOTE | 2023-12-11 10:04 | EXP.PAIN.PRO ---
Procedure Date: 12/11/23 Time: 09:45 Anesthesiologist:: Chau Ramos CRNA Complications:: None Pre-procedure Diagnosis:: Degenerative disc lumbar spine multilevels. Lumbar radiculopathy. Lumbar spondylosis. Degenerative disc cervical spine. Cervical radiculopathy. Cervical postlaminectomy syndrome. Post-procedure Diagnosis:: Same. Indications for Procedure:: Patient is a very pleasant 58-year-old female comes our clinic today for intrathecal pain pump interrogation refill. She is currently being managed with fentanyl 2400 mcg/mL at a rate of 454.0 mcg/day. She is doing very well with her current settings. Not asking for any changes. She is not reporting any side effects or complications. Procedure Details:: Details of the procedure explained to the patient. The patient taken to procedure room placed in sitting position. The area over the pump was cleansed using chlorhexidine's cleansing solution. The pump was interrogated. The pump was accessed with ease using a 22-gauge inch and half needle. 10 mL of solution was withdrawn discarded appropriate. The pump was then filled with 20 cc of solution containing fentanyl 2400 mcg/mL. The rate will continue at 454 mcg/day. Patient tolerated procedure without difficulty. There are no complications. Plan and Disposition:: Patient was discharged without incident.
== END 2023-12-11 10:00 | disposition home or self-care (01) ==
PROVIDERS: PCP Physician Assistant; Visit Provider Nurse Anesthetist, Certified Registered
DX: M51.16 Intervertebral disc disorders with radiculopathy, lumbar region (principal); M47.26 Other spondylosis with radiculopathy, lumbar region; M50.10 Cervical disc disorder with radiculopathy, unspecified cervical region; M96.1 Postlaminectomy syndrome, not elsewhere classified; Z97.8 Presence of other specified devices; Z45.1 Encounter for adjustment and management of infusion pump
CPT/HCPCS: 95991

== ENCOUNTER 2024-02-11 09:22 | Outpatient (CLI) | payer MEDICAID, SELFPAY ==
[2024-02-11 10:19] LABS: Basophils % 0.6 % (0.1-2.0); Eosinophils # 0.1 K/mm3 (0.0-0.4); Eosinophils % 1.6 % (0.1-12.0); Hematocrit 45.1 % (37.0-47.0); Hemoglobin 15.1 g/dL (12.2-16.2); Lymphocytes # 1.2 K/mm3 (0.7-4.5); Mean Corpuscular HGB Conc 33.4 g/dL (31.8-35.4); Mean Corpuscular Hemoglobin 30.5 pg (27.0-31.2); Mean Corpuscular Volume 91.2 fl (81-99); Mean Platelet Volume 7.7 fl (7.4-10.4); Monocytes # 0.2 K/mm3 (0.1-1.0); Monocytes % 4.6 % (1.7-9.3); Neutrophils # 3.2 K/mm3 (1.8-7.8); Neutrophils % 68.2 % (37.0-80.0); Platelet Count 205 K/mm3 (142-424); Red Blood Count 4.94 M/mm3 (4.20-5.40); Red Cell Distribution Width 14.1 % (11.5-17.5); White Blood Count 4.7 K/mm3 (4.8-10.8)
[2024-02-11 10:57] LABS: Alanine Aminotransferase 19 U/L (12-78); Albumin Level 4.4 g/dl (3.5-5.0); Alkaline Phosphatase 76 U/L (38-126); Anion Gap 11.9 mEq/L (5-15); Aspartate Amino Transferase 25 U/L (14-36); Bilirubin,Direct 0.1 mg/dl (0.0-0.4); Bilirubin,Indirect 1.1 mg/dL (0.0-0.9); Bilirubin,Total 1.2 mg/dl (0.2-1.3); Blood Urea Nitrogen 10 mg/dl (7-17); Calcium 9.8 mg/dl (8.4-10.2); Carbon Dioxide 33 mmol/L (22.0-30.0); Chloride 100 mmol/L (98-107); Chol/HDL Ratio 2.2 (1-3.5); Cholesterol 223 mg/dl (140-200); Estimated Glomerular Filt Rate 103 ml/min (>60); GFR (African American) 124 ML/MIN (>60); Glucose 101 mg/dl (74-100); HDL Cholesterol 103 mg/dl (40-60); Magnesium 1.9 mg/dl (1.6-2.3); Potassium 3.9 mmoL/L (3.5-5.1); Sodium 141 mmol/L (136-145); Total Protein,Serum 7.2 g/dl (6.3-8.2); Triglycerides 111 mg/dl (30-150); VLDL Cholesterol 22 mg/dL (0-40)
[2024-02-11 11:07] LABS: Direct LDL Cholesterol 115.88 mg/dL (100-129)
[2024-02-11 11:11] LABS: 25-OH Vitamin D, Total 32.1 ng/mL (30-100)
[2024-02-11 11:49] LABS: Hemoglobin A1C 4.7 % (4.0-6.0)
[2024-02-11 16:28] LABS: Free T4 (Free Thyroxine) 0.73 ng/dl (0.78-2.19)
== END 2024-02-11 23:59 | disposition home or self-care (01) ==
LOC: LAB 09:22
PROVIDERS: PCP Physician Assistant; Visit Provider Physician Assistant
DX: Z01.810 Encounter for preprocedural cardiovascular examination (principal); R06.02 Shortness of breath; I50.32 Chronic diastolic (congestive) heart failure; E78.5 Hyperlipidemia, unspecified; I10 Essential (primary) hypertension; R60.1 Generalized edema; Z13.1 Encounter for screening for diabetes mellitus; Z79.899 Other long term (current) drug therapy
CPT/HCPCS: 36415; 80048; 80061; 80076; 82306; 83036; 83735; 84439; 84443; 85025

== ENCOUNTER 2024-02-12 09:54 | Day surgery (SDC) | payer MEDICAID, SELFPAY ==
[2024-02-12 10:20] VITALS: BP 130/73; PULSE 58; RESP 18; TEMP 36.4; O2SAT 99; BMI 32.9
[2024-02-12 10:24] VITALS: BP 131/77; PULSE 63; RESP 16; O2SAT 99
--- NOTE | 2024-02-12 10:24 | EXP.PAIN.PRO ---
Procedure Date: 02/12/24 Time: 10:20 Anesthesiologist:: Chau Ramos CRNA Complications:: None Pre-procedure Diagnosis:: Degenerative disc lumbar spine multilevels. Lumbar radiculopathy. Lumbar spondylosis. Degenerative disc cervical spine multilevels. Cervical radiculopathy. Cervical postlaminectomy syndrome. Post-procedure Diagnosis:: Same. Indications for Procedure:: Patient is a very pleasant 58-year-old female comes our clinic today for intrathecal pain pump interrogation refill. She is currently being managed with intrathecal fentanyl 2400 mcg/mL at a rate of 454 mcg/day. She is doing very well with her current settings. She is not requesting any changes. She is not reporting side effects or complications. Patient is awake alert [place] x 3. In no acute distress. Flexion-extension cervical lumbar spine normal. Deep tendon reflexes upper and lower extremities normal. Motor strength upper and lower extremities normal. There is no gross sensory deficit. Gait is normal. Procedure Details:: Details of the procedure explained to the patient. The patient taken the procedure room placed in the sitting position. The area over the pump was cleansed using chlorhexidine as a cleansing solution. The pump was interrogated. The pump was accessed with ease using a 22-gauge inch and half needle. 8 mL of solution was withdrawn discarded appropriately. The pump was then filled with 20 cc of solution containing fentanyl 2400 mcg/mL. There will be no changes in intrathecal pump rate. Patient tolerated procedure without difficulty. There are no complications. Plan and Disposition:: Patient was discharged without incident.
[2024-02-12 10:27] VITALS: BP 131/77; PULSE 60; RESP 18; O2SAT 98
[2024-02-12 10:34] VITALS: BP 122/76; PULSE 58; RESP 18; O2SAT 98
[2024-02-12 11:41] LABS: Amphetamine/Metha Screen,Urine Negative ng/ml (<1000); Barbiturates Screen,Urine Negative ng/ml (<200)
[2024-02-12 11:42] LABS: Benzodiazepines Screen,Urine Negative ng/ml (<200)
[2024-02-12 11:43] LABS: Cannabinoid Screen,Urine Negative ng/ml (<50); Cocaine Screen,Urine Negative ng/ml (<300)
[2024-02-12 11:44] LABS: Methadone Screen,Urine Negative ng/ml (<300)
[2024-02-12 11:45] LABS: Opiate Screen,Urine Negative ng/ml (<300); Phencyclidine Screen,Urine Negative ng/ml (<25)
[2024-02-15 15:35] LABS: Opiates Negative (Cutoff=100)
== END 2024-02-12 10:35 | disposition home or self-care (01) ==
PROVIDERS: Anesthesiology; PCP Physician Assistant; Visit Provider Nurse Anesthetist, Certified Registered
DX: M51.16 Intervertebral disc disorders with radiculopathy, lumbar region (principal); M47.26 Other spondylosis with radiculopathy, lumbar region; M50.10 Cervical disc disorder with radiculopathy, unspecified cervical region; M96.1 Postlaminectomy syndrome, not elsewhere classified; Z97.8 Presence of other specified devices; Z45.1 Encounter for adjustment and management of infusion pump
CPT/HCPCS: 80307; 80361; 80365; 95991; G0480

== ENCOUNTER 2024-02-19 12:19 | Outpatient (CLI) | payer MEDICAID, SELFPAY ==
[2024-02-19 19:03] LABS: Basophils % 0.7 % (0.1-2.0); Eosinophils # 0.1 K/mm3 (0.0-0.4); Eosinophils % 1.9 % (0.1-12.0); Hemoglobin 15.6 g/dL (12.2-16.2); Lymphocytes # 1.2 K/mm3 (0.7-4.5); Lymphocytes % 23.1 % (10-50); Mean Corpuscular HGB Conc 33.8 g/dL (31.8-35.4); Mean Corpuscular Hemoglobin 30.7 pg (27.0-31.2); Mean Corpuscular Volume 90.8 fl (81-99); Mean Platelet Volume 9.5 fl (7.4-10.4); Monocytes # 0.3 K/mm3 (0.1-1.0); Neutrophils # 3.7 K/mm3 (1.8-7.8); Neutrophils % 69.3 % (37.0-80.0); Platelet Count 274 K/mm3 (142-424); Red Blood Count 5.07 M/mm3 (4.20-5.40); Red Cell Distribution Width 14.5 % (11.5-17.5); White Blood Count 5.3 K/mm3 (4.8-10.8)
[2024-02-19 19:16] LABS: Alanine Aminotransferase 18 U/L (12-78); Albumin Level 4.5 g/dl (3.5-5.0); Albumin/Globulin Ratio 1.6 (1.1-1.8); Alkaline Phosphatase 85 U/L (38-126); Anion Gap 13.1 mEq/L (5-15); Aspartate Amino Transferase 25 U/L (14-36); Bilirubin,Total 1.7 mg/dl (0.2-1.3); Blood Urea Nitrogen 11 mg/dl (7-17); Calcium 9.8 mg/dl (8.4-10.2); Carbon Dioxide 29 mmol/L (22.0-30.0); Chloride 103 mmol/L (98-107); Cholesterol 231 mg/dl (140-200); Estimated Glomerular Filt Rate 86 ml/min (>60); GFR (African American) 104 ML/MIN (>60); Globulin 2.9 g/dL (1.3-3.2); Glucose 103 mg/dl (74-100); Potassium 4.1 mmoL/L (3.5-5.1); Sodium 141 mmol/L (136-145); Total Protein,Serum 7.4 g/dl (6.3-8.2); Triglycerides 63 mg/dl (30-150); VLDL Cholesterol 13 mg/dL (0-40)
[2024-02-19 19:24] LABS: Chol/HDL Ratio 2.3 (1-3.5); HDL Cholesterol 100 mg/dl (40-60)
[2024-02-19 19:34] LABS: Direct LDL Cholesterol 113.32 mg/dL (100-129)
[2024-02-19 19:36] LABS: 25-OH Vitamin D, Total 34.5 ng/mL (30-100)
[2024-02-19 19:46] LABS: Thyroid Stimulating Hormone 4.91 uIU/mL (0.465-4.68)
[2024-02-19 20:04] LABS: Vitamin B12 454 pg/mL (239-931)
== END 2024-02-19 23:59 | disposition home or self-care (01) ==
LOC: LAB.DROPOF 02-20 12:19
PROVIDERS: PCP Physician Assistant; Visit Provider Physician Assistant
DX: R53.83 Other fatigue (principal); E66.9 Obesity, unspecified; Z68.32 Body mass index [BMI] 32.0-32.9, adult; Z79.899 Other long term (current) drug therapy
CPT/HCPCS: 80053; 80061; 82306; 82607; 84443; 85025

== ENCOUNTER 2024-02-20 08:32 | Outpatient (CLI) | payer MEDICAID, SELFPAY ==
--- NOTE | 2024-02-20 08:33 | CA_ITS ---
APPROVED REPORT EXAM: Comprehensive 2D, Doppler, and color-flow Echocardiogram Catalog Library Assistant: SARAHY Kwon, RVS Ht: 5 ft 2 in Wt: 180lbs BSA: 1.83 BP: 148/82 mmHg Indications: Pre-op dental work and colonoscopy, SOB, Edema, Trricuspid regurgitation, Ex-smoker, GERD 2D Dimensions Left Atrium 2.97 cm LA Volume 32.20 mL LA Volume Index 17.836264 mL/m2 (M/F) 16-34 M-Mode Dimensions RVDd 2.08 cm (0.9-2.6) LA Diam 2.15 cm (1.9-4.0) LVDd 5.49 cm (3.5-5.7) LVDs 3.58 cm (3.5-5.7) IVSd 0.94 cm (0.6-1.1) PWd 0.84 cm (0.6-1.1) EF (Teich) 63.40% EPSs 1.70 cm FS 34.80% EDV (Teich) 146.80 mL TAPSE 2.52 (<1.7) ESV (Teich) 53.70 mL LV Diastology E Decel Time 290 (160-240 msec) E/A Ratio 0.94 MED A' 9.30 cm/s LAT A' 8.40 cm/s Aortic Valve PHAN Index 1.28 cm2/m2 AoV Peak Sathya. 129.0 (50-130 cm/s) AO Peak GR. 6.70 mmHg AO Mean GR. 3.30 (<5 mmHg) AO VTI 32.3 (18-25 cm) PHAN (VTI) 2.40 (2.5-4.5 cm2) Mitral Valve MV A Velocity 89.0 (40-130 cm/s) E/A Ratio 0.94 MV PHT 60.0 ms Pulmonary Valve TX End VMAX 137.0 cm/s Tricuspid Valve TR P. Velocity 219.00 cm/s RAP Estimate 10.00 mmHg RVSP 29.20 mmHg Left Ventricle The left ventricle is normal size. The left ventricular systolic function is normal. The left ventricular ejection fraction is within the normal range. There is increased LV wall thickness. There is normal LV segmental wall motion. The left ventricular diastolic function is normal. LVEF is 55%. Right Ventricle The right ventricle is normal size. The right ventricular systolic function is normal. Atria The left atrium size is normal. The right atrium size is normal. There is no Doppler evidence of interatrial shunt. Aortic Valve The aortic valve is mildly thickened. There is no aortic valvular stenosis. No aortic regurgitation is present. Mitral Valve The mitral valve is normal in structure. No evidence of mitral valve stenosis. Trace mitral regurgitation. Tricuspid Valve The tricuspid valve leaflets are thin and pliable. Mild tricuspid regurgitation. RVSP is 20-25 mmHg. Pulmonic Valve The pulmonary valve is normal in structure. Mild pulmonic regurgitation. Great Vessels The aortic root is normal in size. The ascending aorta is not well-visualized. IVC is normal in size and collapses >50% with inspiration. Pericardium There is no pericardial effusion. Other Information Study Quality: Adequate Conclusion Normal biventricular systolic function. Mild PI, mild TR. Electronically signed by : Terrie Suarez MD 02/25/2024 10:42:03
== END 2024-02-20 23:59 | disposition home or self-care (01) ==
LOC: RT 08:33
PROVIDERS: PCP Physician Assistant; Visit Provider Physician Assistant
DX: Z01.810 Encounter for preprocedural cardiovascular examination (principal); I50.32 Chronic diastolic (congestive) heart failure; E78.5 Hyperlipidemia, unspecified; R06.02 Shortness of breath; R60.1 Generalized edema; I11.0 Hypertensive heart disease with heart failure
CPT/HCPCS: 93306

== ENCOUNTER 2024-04-15 08:54 | Day surgery (SDC) | payer MEDICAID, SELFPAY ==
[2024-04-15 09:02] VITALS: BP 149/89; PULSE 70; RESP 18; TEMP 36.5; O2SAT 100; BMI 31.1
[2024-04-15 09:18] VITALS: BP 147/87; PULSE 60; RESP 18; O2SAT 97
[2024-04-15 09:19] VITALS: BP 147/87; PULSE 60; RESP 18; O2SAT 97
[2024-04-15 09:34] VITALS: BP 147/83; PULSE 64; RESP 18; TEMP 36.5; O2SAT 100
--- NOTE | 2024-04-15 09:39 | EXP.PAIN.PRO ---
Procedure Date: 04/15/24 Time: 09:12 Anesthesiologist:: Chau Ramos CRNA Complications:: None Pre-procedure Diagnosis:: Degenerative disc lumbar spine multilevels. Lumbar radiculopathy. Lumbar spondylosis. Degenerative disc cervical spine multiple levels. Cervical radiculopathy. Cervical postlaminectomy syndrome. Post-procedure Diagnosis:: Same. Indications for Procedure:: Patient is a pleasant 58-year-old female comes our clinic today for intrathecal pain pump interrogation and refill. She is currently being managed with intrathecal fentanyl 2400 mcg/mL at a rate of 454 mcg/day. She is requesting slight increase today due to low back pain with activity. Patient is using her PTM. She reports PTM dose is not helping as much as it used to. She rates her pain today 01/01. I will increase her pump rate today by 5%. Procedure Details:: Details of the procedure explained to the patient. The patient taken the procedure and placed in the sitting position. They over the pumps cleansed using chlorhexidine's cleansing solution. The pump was interrogated. The pump was accessed with ease using a 22-gauge inch and half needle. 9.5 mL of solution was withdrawn. The pump was then filled with 20 cc of solution containing fentanyl 2400 mcg/mL. The rate was increased by 5%. The new intrathecal pump rate will be 476.7 mcg/day. Patient tolerated procedure without difficulty. There are no complications. Plan and Disposition:: Patient was discharged without incident.
== END 2024-04-15 09:35 | disposition home or self-care (01) ==
LOC: SC.PAINP 08:54
PROVIDERS: PCP Physician Assistant; Visit Provider Nurse Anesthetist, Certified Registered
DX: G89.29 Other chronic pain (principal); M51.36 Other intervertebral disc degeneration, lumbar region; M47.26 Other spondylosis with radiculopathy, lumbar region
CPT/HCPCS: 95991

== ENCOUNTER 2024-06-10 08:34 | Day surgery (SDC) | payer MEDICAID, SELFPAY ==
[2024-06-10 08:56] VITALS: BP 119/82; PULSE 68; RESP 16; TEMP 36.5; O2SAT 96; BMI 31.1
[2024-06-10 09:18] VITALS: BP 123/70; PULSE 71; RESP 18; O2SAT 96
[2024-06-10 09:19] VITALS: BP 123/70; PULSE 67; RESP 18; O2SAT 96
[2024-06-10 09:30] VITALS: BP 160/90; PULSE 61; RESP 18; O2SAT 93
--- NOTE | 2024-06-10 09:46 | P.PCN_ITS ---
Procedure Date: 06/10/24 Time: 09:00 Anesthesiologist:: Chau Ramos CRNA Complications:: None Pre-procedure Diagnosis:: Degenerative disc lumbar spine multilevels. Lumbar radiculopathy. Lumbar spondylosis. Degenerative disc cervical spine multilevels. Cervical radiculopathy. Cervical postlaminectomy syndrome. Post-procedure Diagnosis:: Same. Indications for Procedure:: Patient is a very pleasant 58-year-old female comes our clinic today for intrathecal pain pump interrogation and refill. Patient currently being managed with fentanyl 2400 mcg/mL at a rate of 476.7 mcg today. She is doing well with her current settings. She did not request any changes. She is not reporting side effects or complications. Patient is awake alert [place] x 3. No acute distress. Flexion-extension lumbar spine somewhat guarded secondary to pain. Deep tendon reflexes upper lower extremities normal. Motor strength upper lower extremity normal. There is no gross sensory deficit. Gait is normal. Procedure Details:: Details of the procedure explained to the patient. The patient taken procedure and placed in prone position on fluoroscopy table. The air over the pump was cleansed using chlorhexidine as a cleansing solution. The pump was interrogated. The pump was accessed with ease using a 22-gauge inch and half needle. 7 mL of solution was expected out of the pump. However, 15 mL of solution was withdrawn and discarded appropriately. The pump tubing was investigated using fluoroscopy guidance. No kinks or interruptions and connections was noted. The pump was then filled incrementally using fluoroscopy in the lateral position. No difficulty in filling the pump. Pump reservoir expanded normally. The pump rate will continue at 4 and 76.7 mcg/day. Discussed in detail with Dr. Capone regarding the pump discrepancy. Potentially, flow [place] pump will be exchanged next month for [employer] equipment. Plan and Disposition:: Patient was discharged without incident.
--- NOTE | 2024-06-10 10:12 | EXP.PAIN.PRO ---
Procedure Date: 06/10/24 Time: 09:30 Anesthesiologist:: Chau Ramos CRNA Complications:: None Pre-procedure Diagnosis:: Degenerative disc lumbar spine multilevels. Lumbar radiculopathy.
== END 2024-06-10 09:30 | disposition home or self-care (01) ==
LOC: SC.PAINP 08:35
PROVIDERS: PCP Physician Assistant; Visit Provider Nurse Anesthetist, Certified Registered
DX: M51.16 Intervertebral disc disorders with radiculopathy, lumbar region (principal); M47.26 Other spondylosis with radiculopathy, lumbar region; M50.10 Cervical disc disorder with radiculopathy, unspecified cervical region; M96.1 Postlaminectomy syndrome, not elsewhere classified; Z79.891 Long term (current) use of opiate analgesic
CPT/HCPCS: 95991

== ENCOUNTER 2024-08-05 12:08 | Outpatient (CLI) | payer MEDICAID, SELFPAY ==
[2024-08-05 12:34] VITALS: BMI 34.7
[2024-08-05 13:34] LABS: Anion Gap 10.8 mEq/L (5-15); Blood Urea Nitrogen 12 mg/dl (7-17); Calcium 8.9 mg/dl (8.4-10.2); Carbon Dioxide 29 mmol/L (22.0-30.0); Chloride 103 mmol/L (98-107); Creatinine Clearance Estimated 118 mL/min (50-200); Estimated Glomerular Filt Rate 86 ml/min (>60); GFR (African American) 104 ML/MIN (>60); Glucose 81 mg/dl (74-100); Potassium 3.8 mmoL/L (3.5-5.1); Sodium 139 mmol/L (136-145)
[2024-08-05 13:36] LABS: Basophils # 0.1 K/mm3 (0-0.2); Basophils % 1.1 % (0.1-2.0); Eosinophils # 0.2 K/mm3 (0.0-0.4); Eosinophils % 3.6 % (0.1-12.0); Hematocrit 44.7 % (37.0-47.0); Hemoglobin 15.3 g/dL (12.2-16.2); Lymphocytes # 1.6 K/mm3 (0.7-4.5); Lymphocytes % 30.8 % (10-50); Mean Corpuscular HGB Conc 34.1 g/dL (31.8-35.4); Mean Corpuscular Hemoglobin 28.9 pg (27.0-31.2); Mean Corpuscular Volume 84.8 fl (81-99); Mean Platelet Volume 7.1 fl (7.4-10.4); Monocytes # 0.2 K/mm3 (0.1-1.0); Monocytes % 4.1 % (1.7-9.3); Neutrophils # 3.1 K/mm3 (1.8-7.8); Neutrophils % 60.4 % (37.0-80.0); Platelet Count 277 K/mm3 (142-424); Red Blood Count 5.27 M/mm3 (4.20-5.40); Red Cell Distribution Width 14.2 % (11.5-17.5); White Blood Count 5.2 K/mm3 (4.8-10.8)
== END 2024-08-05 23:59 | disposition home or self-care (01) ==
LOC: PREOP 12:08
PROVIDERS: Nurse Anesthetist, Certified Registered; PCP Physician Assistant; Visit Provider Anesthesiology
DX: Z01.812 Encounter for preprocedural laboratory examination (principal)
CPT/HCPCS: 80048; 85025

== ENCOUNTER 2024-08-08 08:57 | Day surgery (SDC) | payer MEDICAID, SELFPAY ==
[2024-08-05 12:33] VITALS: BMI 34.7
[2024-08-08 09:05] VITALS: BP 137/80; PULSE 74; RESP 18; TEMP 36.2; O2SAT 96
--- NOTE | 2024-08-08 09:13 | EXP.ANES.CKL ---
[facility] Disclaimer: The information contained in this section may have been updated after the patient was seen, as this information can be updated by other users. Medical History Asthma Encounter for pre-operative cardiovascular clearance Degenerative disc disease GERD (gastroesophageal reflux disease) History of colon polyps Chronic constipation Diastolic heart failure Heel spur Plantar fasciitis, bilateral Chronic neck pain Palpitations Former smoker HLD (hyperlipidemia) HTN (hypertension) Family history of coronary artery disease SOB (shortness of breath) Edema Hypothyroidism Surgical History Hx of tubal ligation Hx laparoscopic cholecystectomy History of partial hysterectomy Hx of fusion of cervical spine History of colonoscopy Family History Other Family history of heart disease Social History Smoking Status: Former smoker tobacco type: cigarettes packs per day: 1 second hand exposure: No alcohol intake: never substance use type: denies use current occupational status: unemployed Travel in the last 8 weeks: None household members: other housing: house current occupational exposures/hazards: No caffeine: Yes [facility] Anesthesia Checklist Patient Identification Patient Identification: Arm Band and Verbal (Name & ) Structural Data Admitted From: Home Planned Operative Procedure/s: IPPP Consent for Planned Operative Procedure(s) Verified: Yes Verified Documents: Surgical Consent and History and Physical NPO Status Verified Time NPO: 00:00 Additional verifications Anesthesia Reactions: No Hx Blood Transfusions: No Blood Transfusion Reaction: No Airway Assessment Mallampati Score:: Class II C-Spine Mobility Assessed: Yes TMJ Mobility Assessed: Yes Dentition: Dentures-poor fitting (Removed) Neurological Assessment Level of Consciousness: Awake Hx Seizures: No Numbness or tingling in extremities: No Anesthesia Plan Anesthesia Risk discussed: Yes Anesthesia Plan: Verified ASA Class: II Anesthesia Type: MAC
[2024-08-08] MEDS: VANCOMYCIN/WATER FOR INJ (PEG) 1.5 GM/300 ML PIGGYBACK IV (09:50)
[2024-08-08] MEDS: GENTAMICIN 80 MG/2 ML VIAL (10:13)
[2024-08-08] MEDS: SODIUM CHLORIDE 0.9% 20ML VIAL 40 ML IV (10:13)
[2024-08-08] MEDS: LIDOCAINE 1% W/EPI 1:100,000 20ML VIAL 40 ML (10:14)
[2024-08-08 10:47] VITALS: BP 116/74; PULSE 79; RESP 16; TEMP 36.3; O2SAT 98
[2024-08-08 11:02] VITALS: BP 125/85; PULSE 70; RESP 16; O2SAT 99
--- NOTE | 2024-08-08 11:08 | EXP.OP.NOTE ---
Date of procedure: 08/08/24 Pre-op Diagnosis:: Nonfunctioning intrathecal pain pump system Post-op Diagnosis:: Same Procedure performed:: Replacement pain pump system with new tunneled intrathecal catheter and replacement pain pump generator Surgeon:: Jamie Capone MD MANAGER SWITCH:: Irene Mcwilliams Anesthesia: MAC Estimated blood loss (mL): 5 Clinical Note:: This patient is a pleasant 59-year-old white female who has a nonfunctioning [employer] pain pump system in place. She presents for replacement of her pain pump system today. She is currently on intrathecal fentanyl. There were discrepancies at her last refill. We will refill the pump with intrathecal fentanyl 2400 mcg/mL and decrease her dose to 150 mcg/day. Operative findings:: None Operative note:: Informed consent was obtained risk and benefits of the procedure were explained to the patient. The patient was taken the operating room placed prone on the procedure table. She was prepped and draped sterile fashion. C-arm fluoroscopy was used to view the pump and the catheter. The skin and subcutaneous tissues overlying the pump were anesthetized using lidocaine. I made an incision dissected out the pump generator. I disconnected the catheter. I tied it off in the pocket with 0 silk ties x 3. C-arm fluoroscopy was then used to view the lumbar spine. The skin and subcutaneous tissues adjacent to the L3-L4 interspace were anesthetized using lidocaine. I made incision dissected down to the lumbar paraspinous fascia. A 17-gauge spinal needle was inserted and advanced into the L3-L4 interspace until clear CSF was obtained. After this intrathecal catheter was inserted and advanced very easily to the T8 vertebral body. Catheter was in good position it was midline and posterior. The stylette of the catheter and the needle were withdrawn. The catheter was secured to the fascia with an anchor device and 2-0 Prolene. I filled the pump with 20 mL of intrathecal fentanyl 2400 mcg/mL. I tunneled the catheter from the back to the pump pocket and attached catheter to the pump. We are able to freely withdraw clear CSF through the sideport. The pump was placed in the pocket with an antibiotic pouch. Both incisions were closed with 2-0 Vicryl followed by 4-0 nylon and ashley. Patient tolerated the procedure well with no complications. Pump was interrogated and started at 150 mcg/day with PTM boluses given to her at 15 mcg every 6 hours up to 4 times a day. Patient was discharged home neurologic intact with good relief of pain symptoms. Plan and disposition: Will follow-up with this patient in 1 week for wound check. Will follow-up in 2 to 3 weeks for suture and staple removal. Condition: stable Disposition: PACU Complications:: None
[2024-08-08 11:17] VITALS: BP 117/81; PULSE 68; RESP 16; O2SAT 98
[2024-08-08 11:32] VITALS: BP 118/77; PULSE 67; RESP 18; O2SAT 98
[2024-08-08 11:43] VITALS: BP 124/87; PULSE 69; RESP 18; TEMP 36.3; O2SAT 98
== END 2024-08-08 11:43 | disposition home or self-care (01) ==
PROVIDERS: PCP Physician Assistant; Visit Provider Anesthesiology
PROC: (CPT 62350; principal; 2024-08-08 10:45)
DX: T85.695A Other mechanical complication of other nervous system device, implant or graft, initial encounter (principal)
CPT/HCPCS: 62350; 62362; 96374; C1755; C1772; J1580; J2250; J2704

== ENCOUNTER 2024-08-15 08:30 | Outpatient (POV) | payer MEDICAID, SELFPAY ==
[2024-08-15 08:52] VITALS: BP 137/83; PULSE 72; RESP 16; O2SAT 97; BMI 34.7
--- NOTE | 2024-08-15 08:58 | EXP.PAIN.PRO ---
Procedure Date: 08/15/24 Time: 08:58 Anesthesiologist:: Hilda Naik APRN Complications:: None Pre-procedure Diagnosis:: Degenerative disc disease of lumbar spine with lumbar radiculopathy symptoms Post-procedure Diagnosis:: Same Indications for Procedure:: Patient is a pleasant 59-year-old female who presents today for 1 week postop of intrathecal pain pump and catheter replacement on 08/08/2024. Today she rates her pain an 8 out of 10. She denies any new trauma or injury. She does state that overall the procedure itself went great however they did end up turning down her pump medication due to having the new device implanted and does feel like she has more pain related to this and the incision. Patient is currently managed with fentanyl 2400 mcg/mL with a daily dose 750 mcg/day. She denies any side effects from these medications. Her Brian has been reviewed and is appropriate. Physical Exam: General: Alert and oriented x3, no acute distress, pleasant and cooperative Lungs: Respirations even and unlabored, symmetrical chest expansion Eyes: PERRL Musculoskeletal: Flexion and extension of lumbar [spine] somewhat guarded secondary to pain, [antalgic gait noted] Neurological: Speech clear, no gross sensory deficit Skin: Incision sites are clean, dry, well-approximated with sutures and ashley intact minimal erythema noted Procedure Details:: Informed consent was obtained and the risk and benefits of the procedure were explained to the patient. Patient was taken to the procedure room where noninvasive monitoring was placed including noninvasive blood pressure cuff and pulse oximeter. Patient's pump was interrogated and was reprogrammed to fentanyl 165.2 mcg/day. The patient tolerated the procedure well with no complications. Plan and Disposition:: Patient tolerated her intrathecal increase with no complications and was discharged neurologically intact. Patient was counseled to continue her postop restrictions for the full 6 weeks including no submerging in water until her incisions are fully healed, minimal bending lifting twisting and to continue to use her abdominal binder to prevent seroma formation. Patient will return to clinic in 2 weeks for suture and staple removal. Patient agrees with this plan of care. Patient was also given her PTM bolus device during today's visit. We will see the patient back in the clinic at the next intrathecal refill. Patient has been instructed to contact the clinic with any concerns before the next appointment. Dr. Capone has reviewed this note and agrees with this plan of care. This note was dictated using voice recognition software and make contain errors or omissions. -- It Is medically necessary for this patient to continue to have their intrathecal pump refilled at regular intervals. This patient had an intrathecal pain pump implanted after meeting criteria of chronic intractable pain for greater than 3 months and failing conservative treatments. Patient has committed and been compliant to the treatment plan and all planned follow up care. Since implantation of the intrathecal pain pump, the patient has had decreased pain and been more functional. Oral medications have been reduced including intake of oral opioids. Patient continues to do well with intrathecal therapy with decrease in pain symptoms and increase in functional status. Stopping intrathecal medications can lead to life threatening withdrawal, seizures, cardiac arrest, severe pain, and possible . Pumps that are not refilled at regular intervals can be damages and cause and need for replacement. We continually titrate dose and concentration to optimize pain relief and function. We are limited in concentration for certain drugs to safely deliver medications through the pump and stay within the recommendations from the Polyanalgesic Consensus Committee Guidelines. Depending on dose and concentration these pumps may need to be refilled sooner than 3 months as we titrate.
== END 2024-08-15 23:59 | disposition home or self-care (01) ==
PROVIDERS: PCP Physician Assistant; Visit Provider Nurse Practitioner Family
DX: M51.16 Intervertebral disc disorders with radiculopathy, lumbar region (principal)
CPT/HCPCS: 62368; 99212; 99213; G0463

== ENCOUNTER 2024-08-27 08:53 | Outpatient (POV) | payer MEDICAID, SELFPAY ==
--- NOTE | 2024-08-27 09:03 | P.PCN_ITS ---
Procedure Date: 08/27/24 Time: 09:03 Anesthesiologist:: Hilda Naik APRN Complications:: None Pre-procedure Diagnosis:: Degenerative disc disease of lumbar spine with lumbar radiculopathy symptoms Post-procedure Diagnosis:: Same Indications for Procedure:: Patient is a pleasant 59-year-old female who presents today for intrathecal adjustment and reprogram as well as suture and staple removal. Today she rates her pain a 7 out of 10. She denies any new trauma or injury from our last v isit. Patient states that she did not notice a significant improvement with her last increase. Patient is currently managed with fentanyl 2400 mcg/mL with a daily dose of 165.2 mg/day. Her Brian has been reviewed and is appropriate. Physical Exam: General: Alert and oriented x3, no acute distress, pleasant and cooperative Lungs: Respirations even and unlabored, symmetrical chest expansion Eyes: PERRL Musculoskeletal: Flexion and extension of lumbar [spine] somewhat guarded secondary to pain, [antalgic gait noted] Neurological: Speech clear, no gross sensory deficit Skin: Incision sites are clean, dry, well-approximated with minimal erythema noted and sutures and ashley intact Procedure Details:: Informed consent was obtained and the risk and benefits of the procedure were explained to the patient. Patient was taken to the procedure room where noninvasive monitoring was placed including noninvasive blood pressure cuff and pulse oximeter. Patient's pump was interrogated and was reprogrammed to fentanyl 198.1 mcg/day. The patient tolerated the procedure well with no complications. Plan and Disposition:: Patient tolerated her intrathecal increase with no complications and was discharged neurologically intact. We did remove her sutures and ashley and applied skin glue and Steri-Strips. Patient was counseled to continue her postop restrictions the full 6 weeks. Patient agrees with this plan of care. Patient will return to clinic in 1 month for reevaluation of symptoms and plan of care. We will see the patient back in the clinic at the next intrathecal refill. Patient has been instructed to contact the clinic with any concerns before the next appointment. Dr. Capone has reviewed this note and agrees with this plan of care. This note was dictated using voice recognition software and make contain errors or omissions. -- It Is medically necessary for this patient to continue to have their intrathecal pump refilled at regular intervals. This patient had an intrathecal pain pump implanted after meeting criteria of chronic intractable pain for greater than 3 months and failing conservative treatments. Patient has committed and been compliant to the treatment plan and all planned follow up care. Since implantation of the intrathecal pain pump, the patient has had decreased pain and been more functional. Oral medications have been reduced including intake of oral opioids. Patient continues to do well with intrathecal therapy with decrease in pain symptoms and increase in functional status. Stopping intrathecal medications can lead to life threatening withdrawal, seizures, cardiac arrest, severe pain, and possible . Pumps that are not refilled at regular intervals can be damages and cause and need for replacement. We continually titrate dose and concentration to optimize pain relief and function. We are limited in concentration for certain drugs to safely deliver medications through the pump and stay within the recommendations from the Polyanalgesic Consensus Committee Guidelines. Depending on dose and concentration these pumps may need to be refilled sooner than 3 months as we titrate.
[2024-08-27 09:27] VITALS: BP 140/79; PULSE 72; RESP 16; O2SAT 96; BMI 34.7
== END 2024-08-27 23:59 | disposition home or self-care (01) ==
PROVIDERS: PCP Physician Assistant; Visit Provider Nurse Practitioner Family
DX: M51.16 Intervertebral disc disorders with radiculopathy, lumbar region (principal)
CPT/HCPCS: 62368; 99213; G0463

== ENCOUNTER 2024-10-01 11:13 | Outpatient (POV) | payer MEDICAID, SELFPAY ==
[2024-10-01 11:37] VITALS: BP 164/88; PULSE 66; RESP 16; O2SAT 96; BMI 32.9
--- NOTE | 2024-10-01 11:58 | P.PCN_ITS ---
Procedure Date: 10/01/24 Time: 11:43 Anesthesiologist:: Hilda Naik APRN Complications:: None Pre-procedure Diagnosis:: Degenerative disc disease of lumbar spine with lumbar radiculopathy symptoms Post-procedure Diagnosis:: Same Indications for Procedure:: Patient is a pleasant 59-year-old female who presents today for 1 month follow- up. Today she rates her pain a 8 out of 10. She denies any new trauma or injury. She states that she is still continued to do well from her intrathecal replacement and denies any issues. She does state that she feels like she still is having a little bit more increased pain and would like an adjustment. She is currently managed with fentanyl 2400 mcg/mL with a daily dose of 198.1 mcg/day. She denies any side effects from this medication. Her Brian has been reviewed and is appropriate. Physical Exam: General: Alert and oriented x3, no acute distress, pleasant and cooperative Lungs: Respirations even and unlabored, symmetrical chest expansion Eyes: PERRL Musculoskeletal: Flexion and extension of lumbar [spine] somewhat guarded secondary to pain, [antalgic gait noted] Neurological: Speech clear, no gross sensory deficit Procedure Details:: Informed consent was obtained and the risk and benefits of the procedure were explained to the patient. Patient did have noninvasive monitoring was placed including noninvasive blood pressure cuff and pulse oximeter. Patient's pump was interrogated and was reprogrammed to fentanyl 208 mcg/day. The patient tolerated the procedure well with no complications. Plan and Disposition:: Patient tolerated her adjustment with no complications and was discharged neurologically intact. Patient's incision is fully healed and has been released off her postop discharge restrictions. Patient does already have her next intrathecal refill scheduled at the beginning of October. We will not give any additional appointment dates at this time. Patient agrees with this plan of care. We will see the patient back in the clinic at the next intrathecal refill. Patient has been instructed to contact the clinic with any concerns before the next appointment. Dr. Capone has reviewed this note and agrees with this plan of care. This note was dictated using voice recognition software and make contain errors or omissions. -- It Is medically necessary for this patient to continue to have their intrathecal pump refilled at regular intervals. This patient had an intrathecal pain pump implanted after meeting criteria of chronic intractable pain for greater than 3 months and failing conservative treatments. Patient has committed and been compliant to the treatment plan and all planned follow up care. Since implantation of the intrathecal pain pump, the patient has had decreased pain and been more functional. Oral medications have been reduced including intake of oral opioids. Patient continues to do well with intrathecal therapy with decrease in pain symptoms and increase in functional status. Stopping intrathecal medications can lead to life threatening withdrawal, seizures, cardiac arrest, severe pain, and possible . Pumps that are not refilled at regular intervals can be damages and cause and need for replacement. We continually titrate dose and concentration to optimize pain relief and function. We are limited in concentration for certain drugs to safely deliver medications through the pump and stay within the recommendations from the Polyanalgesic Consensus Committee Guidelines. Depending on dose and concentration these pumps may need to be refilled sooner than 3 months as we titrate. A UDS is needed to verify patient's compliance with our office pain contract. This is ordered based off specific treatments related to chronic pain with the potential to abuse certain medications.
== END 2024-10-01 23:59 | disposition home or self-care (01) ==
PROVIDERS: PCP Physician Assistant; Visit Provider Nurse Practitioner Family
DX: M51.16 Intervertebral disc disorders with radiculopathy, lumbar region (principal)
CPT/HCPCS: 62368; 99212; 99213; G0463

== ENCOUNTER 2024-10-28 12:44 | Day surgery (SDC) | payer MEDICAID, SELFPAY ==
[2024-10-28 13:17] VITALS: BP 150/84; PULSE 74; RESP 16; TEMP 36.4; O2SAT 98; BMI 32.9
[2024-10-28 13:40] VITALS: BP 150/88; PULSE 67; RESP 16; O2SAT 98
--- NOTE | 2024-10-28 13:40 | EXP.PAIN.PRO ---
Procedure Date: 10/28/24 Time: 13:30 Anesthesiologist:: Hilda Naik APRN Complications:: None Pre-procedure Diagnosis:: Degenerative disc disease of lumbar spine with lumbar radiculopathy symptoms Post-procedure Diagnosis:: Same Indications for Procedure:: Patient is a pleasant 59-year-old female who presents today for intrathecal refill and reprogram. Today she rates her pain a 7 out of 10. Patient denies any new trauma or injury. She does state that she just has been having more pain still in and around her back and would like an increase if possible. Patient is currently managed with fentanyl 2400 mcg/mL with a daily dose of 208 mcg/day. She denies any side effects from this medication. Her Brian has been reviewed and is appropriate. Physical Exam: General: Alert and oriented x3, no acute distress, pleasant and cooperative Lungs: Respirations even and unlabored, symmetrical chest expansion Eyes: PERRL Musculoskeletal: Flexion and extension of lumbar [spine] somewhat guarded secondary to pain, [antalgic gait noted] Neurological: Speech clear, no gross sensory deficit Procedure Details:: Informed consent was obtained and the risk and benefits of the procedure were explained to the patient. The patient had noninvasive monitoring placed including noninvasive blood pressure cuff and pulse oximeter. Patient's pump was interrogated. The area over the pump was cleansed with chlorhexidine as a cleansing solution. In sterile fashion the pump was accessed with a 22-gauge needle. Approximately 12.5 mls of the pump solution was removed and discarded appropriately. The pump was then refilled with 20 mL's of fentanyl 2400 mcg/ml. The needle was withdrawn and a bandage was placed over the puncture site. The infusion rate was reprogrammed and increased 5% to 218.1 mcg/day. The patient tolerated well with no complication. Plan and Disposition:: Patient tolerated the procedure well with no complications and was discharged neurologically intact. Patient did have quite a bit of her medications still left in her pump and I did discuss with her that I would like to decrease her concentration so she does get more of the solution used. Patient agrees with this plan of care. I will make sure that for her next medication refill that we will decrease the concentration down to fentanyl 2000 mcg/day. Patient will return to clinic on or before their next intrathecal refill date. We will see the patient back in the clinic at the next intrathecal refill. Patient has been instructed to contact the clinic with any concerns before the next appointment. Dr. Capone has reviewed this note and agrees with this plan of care. This note was dictated using voice recognition software and make contain errors or omissions. -- It Is medically necessary for this patient to continue to have their intrathecal pump refilled at regular intervals. This patient had an intrathecal pain pump implanted after meeting criteria of chronic intractable pain for greater than 3 months and failing conservative treatments. Patient has committed and been compliant to the treatment plan and all planned follow up care. Since implantation of the intrathecal pain pump, the patient has had decreased pain and been more functional. Oral medications have been reduced including intake of oral opioids. Patient continues to do well with intrathecal therapy with decrease in pain symptoms and increase in functional status. Stopping intrathecal medications can lead to life threatening withdrawal, seizures, cardiac arrest, severe pain, and possible . Pumps that are not refilled at regular intervals can be damages and cause and need for replacement. We continually titrate dose and concentration to optimize pain relief and function. We are limited in concentration for certain drugs to safely deliver medications through the pump and stay within the recommendations from the Polyanalgesic Consensus Committee Guidelines. Depending on dose and concentration these pumps may need to be refilled sooner than 3 months as we titrate. A UDS is needed to verify patient's compliance with our office pain contract. This is ordered based off specific treatments related to chronic pain with the potential to abuse certain medications.
[2024-10-28 13:42] VITALS: BP 151/98; PULSE 68; RESP 16; O2SAT 98
== END 2024-10-28 13:42 | disposition home or self-care (01) ==
PROVIDERS: PCP Physician Assistant; Visit Provider Nurse Practitioner Family
DX: M51.16 Intervertebral disc disorders with radiculopathy, lumbar region (principal)
CPT/HCPCS: 62370

== ENCOUNTER 2024-11-21 07:45 | Outpatient (CLI) | payer MEDICAID, SELFPAY ==
--- NOTE | 2024-11-21 07:47 | MM_ITS ---
PROCEDURE INFORMATION: Exam: MG Bilateral Screening 3D Mammography Exam date and time: 11/21/2024 8:03 AM Age: 59 years old Clinical indication: Screening examination TECHNIQUE: Imaging protocol: Bilateral Screening tomosynthesis and 2D mammography including computer-aided detection (CAD) when performed. COMPARISON: 1. MG MM DIG SCREENING MAMM BI W/CAD 06/16/2022 1:43 PM 2. MG MM DIG MAMM BI DX W/CAD 08/13/2020 2:06 PM FINDINGS: MAMMOGRAPHY: Breast composition: There are scattered areas of fibroglandular density. Mass: No suspicious masses. Architectural distortion: None. Calcifications: No suspicious calcifications. Asymmetric density: None. Skin thickening: None. Axillary adenopathy: None. IMPRESSION: No mammographic evidence of malignancy. Annual screening is recommended unless otherwise clinically indicated. ASSESSMENT: BI-RADS Category 1: Negative.
== END 2024-11-21 23:59 | disposition home or self-care (01) ==
LOC: RAD 07:46
PROVIDERS: PCP Physician Assistant; Visit Provider Physician Assistant
DX: Z12.31 Encounter for screening mammogram for malignant neoplasm of breast (principal)
CPT/HCPCS: 77063; 77067

== ENCOUNTER 2025-01-07 11:46 | Outpatient (CLI) | payer MEDICAID, SELFPAY ==
[2025-01-07 12:34] LABS: Albumin Level 4.3 g/dl (3.5-5.0); Chloride 104 mmol/L (98-107)
[2025-01-07 12:35] LABS: Potassium 4.3 mmoL/L (3.5-5.1); Sodium 142 mmol/L (136-145)
[2025-01-07 12:37] LABS: Alanine Aminotransferase 25 U/L (12-78); Albumin/Globulin Ratio 1.5 (1.1-1.8); Alkaline Phosphatase 78 U/L (38-126); Anion Gap 10.3 mEq/L (5-15); Aspartate Amino Transferase 27 U/L (14-36); Bilirubin,Total 1.1 mg/dl (0.2-1.3); Blood Urea Nitrogen 11 mg/dl (7-17); Carbon Dioxide 32 mmol/L (22.0-30.0); Estimated Glomerular Filt Rate 102 ml/min (>60); GFR (African American) 124 ML/MIN (>60); Globulin 2.9 g/dL (1.3-3.2); Total Protein,Serum 7.2 g/dl (6.3-8.2)
[2025-01-07 12:38] LABS: Calcium 9.2 mg/dl (8.4-10.2); Glucose 94 mg/dl (74-100)
== END 2025-01-07 23:59 | disposition home or self-care (01) ==
LOC: LAB 11:46
PROVIDERS: PCP Physician Assistant; Visit Provider Obstetrics & Gynecology
DX: E78.5 Hyperlipidemia, unspecified (principal)
CPT/HCPCS: 36415; 80053

== ENCOUNTER 2025-02-27 11:33 | Day surgery (SDC) | payer MEDICAID, SELFPAY ==
--- NOTE | 2025-02-27 11:35 | P.HP_ITS ---
History of Present Illness *Admission Date: 02/27/25 *Reason for visit:: Intrathecal refill; DDD *History of present illness: Same [facility] Disclaimer: The information contained in this section may have been updated after the patient was seen, as this information can be updated by other users. Medical History (Updated 02/27/25 @ 11:37 by Hilda Naik APRN) Menopausal vasomotor syndrome Asthma Encounter for pre-operative cardiovascular clearance Degenerative disc disease GERD (gastroesophageal reflux disease) History of colon polyps Chronic constipation Diastolic heart failure Heel spur Plantar fasciitis, bilateral Chronic neck pain Palpitations Former smoker HLD (hyperlipidemia) HTN (hypertension) Family history of coronary artery disease SOB (shortness of breath) Edema Hypothyroidism Surgical History Hx of tubal ligation Hx laparoscopic cholecystectomy History of partial hysterectomy Hx of fusion of cervical spine History of colonoscopy Family History Other Family history of heart disease Social History Smoking Status: Former smoker tobacco type: cigarettes packs per day: 1 second hand exposure: No alcohol intake: never substance use type: denies use current occupational status: other Travel in the last 8 weeks?: None household members: other housing: house current occupational exposures/hazards: No caffeine: Yes Have you lived/traveled outside US in past 30 days?: No Contact w/someone who lives/traveled outside US past 30 days?: No Exposure to someone with infectious disease in past 14 days?: No Do you have a fever (greater than 100.4 F or 38 C)?: No Have you tested positive for COVID-19?: No Exposed to someone with COVID-19 in past 14 days?: No Do you have a sore throat?: No Do you have a cough?: No Do you have any weakness?: No Do you have any diarrhea?: No Are you experiencing any unusual bleeding?: No Do you have any muscle aches/pain?: No Do you have any abdominal pain?: No Are you experiencing loss of taste or smell?: No Other Medical History Have you received the Flu Vaccine for this season: No Have you received the Pneumonia Vaccine: No Review of Systems Review of Systems Review of systems:: pertinent systems reviewed and negative unless documented below Review of systems (narrative): Review of Systems: General: No recent weight changes, no fever, no sleep disturbances Respiratory: No cough, no shortness of air, no recurring pulmonary infections Cardiovascular/peripheral vascular: No chest pain, no palpitations, no edema, no shortness of breath Gastrointestinal: No new onset incontinence, normal bowel movements reported Genitourinary: No new onset incontinence Musculoskeletal: Chronic back pain Psychiatric: [Normal mood/affect] Neurological: [Denies weakness in extremities], [denies balance issues] Meds Home Medications and Allergies Home Medications ?Medication ?Instructions ?Recorded ?Confirmed ?Type fentanyl citrate (PF) 50 mcg/mL 285 mcg intrathecal DA ISABELLA chronic 04/05/20 01/07/25 History injection solution pain albuterol sulfate 90 mcg/actuation 2 puff inhalation Q 4-6H PRN SOA 05/19/24 01/07/25 Rx aerosol inhaler #8.5 grams fluticasone propionate 50 1 spray intranasal DAILY all ergies 05/19/24 01/07/25 Rx mcg/actuation nasal #16 grams spray,suspension sulfamethoxazole 800 1 tab PO BID 7 days #14 tabs 08/08/24 01/07/25 Rx mg-trimethoprim 160 mg tablet (Bactrim DS) cariprazine 3 mg capsule (Vraylar) 3 mg PO DAILY #90 c aps 09/03/24 01/07/25 Rx levothyroxine 150 mcg tablet 150 mcg PO DAILY . #90 ta bs 09/03/24 01/07/25 Rx cholecalciferol (vitamin D3) 50 50 mcg PO 01/07/25 History mcg (2,000 unit) capsule desvenlafaxine succinate 50 mg mg PO 01/07/25 01/07/25 History tablet,extended release 24 hr ergocalciferol (vitamin D2) 1,250 1,250 mcg PO 5 01/07/25 History mcg (50,000 unit) capsule (Vitamin D2) furosemide 20 mg tablet mg PO 01/07/25 01/07/25 Hist ory New Prescriptions to Start Prescriptions: Allergies Allergy/AdvReac Type Severity Reaction Status Date / Time morphine Allergy Intermediate Unknown Verified 01/07/25 10:39 allergy reaction Exam Constitutional Constitutional: no acute distress *Routine HEENT Exam Head: Present normocephalic and atraumatic Eye: Present PERRL ENT: Present mucous membranes moist *Routine Neck Exam Neck: Present supple *Routine Respiratory Exam Respiratory: Present CTA bilaterally *Routine Cardiovascular Exam Cardiovascular: Present RRR *Routine Abdominal Exam Abdominal: Present soft *Routine Rectal Exam Rectal:: deferred *Routine Genitalia Exam Genitalia:: normal female Routine Back/Spine/Pelvis Exam Back/Spine: Present pain with flexion *Routine Neurological Exam Neurological: Present alert and oriented X3 Routine Psychiatric Exam Psychiatric: Present normal affect and normal thought process Assessment and Plan *Assessment and plan (1) Degenerative disc disease: Status: Acute Category: Medical Plan Patient has been instructed to contact the clinic with any concerns before the next appointment. Dr. Capone has reviewed this note and agrees with this plan of care. This note was dictated using voice recognition software and make contain errors or omissions. All injections are used with Lidocaine, Bupivacaine and dexamethasone. Occasionally urine drug screen is needed to verify patient's compliance with our office pain contract. This is ordered based off specific treatments related to chronic pain with the potential to abuse certain medications.
--- NOTE | 2025-02-27 11:37 | EXP.PAIN.PRO ---
Procedure Date: 02/27/25 Time: 12:00 Anesthesiologist:: Hilda Naik APRN Complications:: None Pre-procedure Diagnosis:: Degenerative disc disease of lumbar spine, chronic back pain Post-procedure Diagnosis:: Same Indications for Procedure:: Patient is a pleasant 51-year-old female who presents today for intrathecal refill and reprogram. Today she does rated her pain an 8 out of 10. She denies any new trauma or injury. She does state that she has been having a lot increased pain recently and is requesting an increase if we could possibly. Patient is currently managed with fentanyl 2400 mcg/mL with a daily dose of 218.1 mcg/day. She denies any side effects. Her Brian has been reviewed and is appropriate. Physical Exam: General: Alert and oriented x3, no acute distress, pleasant and cooperative Lungs: Respirations even and unlabored, symmetrical chest expansion Eyes: PERRL Musculoskeletal: Flexion and extension of lumbar [spine] somewhat guarded secondary to pain, [antalgic gait noted] Neurological: Speech clear, no gross sensory deficit Procedure Details:: Informed consent was obtained and the risk and benefits of the procedure were explained to the patient. The patient had noninvasive monitoring placed including noninvasive blood pressure cuff and pulse oximeter. Patient's pump was interrogated. The area over the pump was cleansed with chlorhexidine as a cleansing solution. In sterile fashion the pump was accessed with a 22-gauge needle. Approximately 6.3 mls of the pump solution was removed and discarded appropriately. The pump was then refilled with 20 mL's of fentanyl 2000 mcg/mL. The needle was withdrawn and a bandage was placed over the puncture site. The infusion rate was reprogrammed and increased 10% fentanyl 239.8 mcg/day. The patient tolerated well with no complication. Plan and Disposition:: Patient tolerated the procedure well with no complications and was discharged neurologically intact. I did discuss with the patient while we are changing her intrathecal concentration that she will have a bridge bolus and during that timeframe she will not be able to use her PTM device. Patient acknowledges understanding. Due to her increased pain I did discuss with her that we will give her an extra 2-week follow-up appointment for additional adjustment if needed. Patient was counseled that she can call and cancel this appointment if she does not end up feeling like she needs additional adjustment. Patient agrees with this option. Patient will return to clinic on or before their next intrathecal refill date. We will see the patient back in the clinic at the next intrathecal refill. Patient has been instructed to contact the clinic with any concerns before the next appointment. Dr. Capone has reviewed this note and agrees with this plan of care. This note was dictated using voice recognition software and make contain errors or omissions. -- It Is medically necessary for this patient to continue to have their intrathecal pump refilled at regular intervals. This patient had an intrathecal pain pump implanted after meeting criteria of chronic intractable pain for greater than 3 months and failing conservative treatments. Patient has committed and been compliant to the treatment plan and all planned follow up care. Since implantation of the intrathecal pain pump, the patient has had decreased pain and been more functional. Oral medications have been reduced including intake of oral opioids. Patient continues to do well with intrathecal therapy with decrease in pain symptoms and increase in functional status. Stopping intrathecal medications can lead to life threatening withdrawal, seizures, cardiac arrest, severe pain, and possible . Pumps that are not refilled at regular intervals can be damages and cause and need for replacement. We continually titrate dose and concentration to optimize pain relief and function. We are limited in concentration for certain drugs to safely deliver medications through the pump and stay within the recommendations from the Polyanalgesic Consensus Committee Guidelines. Depending on dose and concentration these pumps may need to be refilled sooner than 3 months as we titrate. A UDS is needed to verify patient's compliance with our office pain contract. This is ordered based off specific treatments related to chronic pain with the potential to abuse certain medications.
[2025-02-27 11:44] VITALS: BP 167/87; PULSE 86; RESP 16; O2SAT 97; BMI 36.6
[2025-02-27 11:56] VITALS: BP 159/91; PULSE 86; RESP 18; O2SAT 95
[2025-02-27 12:08] VITALS: BP 138/87; PULSE 68; RESP 16; O2SAT 96
== END 2025-02-27 12:08 | disposition home or self-care (01) ==
PROVIDERS: PCP Physician Assistant; Visit Provider Nurse Practitioner Family
DX: M51.369 Other intervertebral disc degeneration, lumbar region without mention of lumbar back pain or lower extremity pain (principal); G89.29 Other chronic pain; J45.909 Unspecified asthma, uncomplicated; K21.9 Gastro-esophageal reflux disease without esophagitis; K59.09 Other constipation; M54.2 Cervicalgia; I11.0 Hypertensive heart disease with heart failure; I50.30 Unspecified diastolic (congestive) heart failure; E78.5 Hyperlipidemia, unspecified; E03.9 Hypothyroidism, unspecified; Z98.51 Tubal ligation status; Z90.49 Acquired absence of other specified parts of digestive tract; Z98.1 Arthrodesis status; Z86.0100 Personal history of colon polyps, unspecified; Z87.891 Personal history of nicotine dependence; Z79.899 Other long term (current) drug therapy; Z79.891 Long term (current) use of opiate analgesic; Z88.5 Allergy status to narcotic agent
CPT/HCPCS: 62370

== ENCOUNTER 2025-03-12 10:18 | Outpatient (POV) | payer MEDICAID, SELFPAY ==
--- OUTSIDE RECORDS SUMMARY | 2025-03-12 10:28 | XMS_ITS | Data Portability ---
Author Organization [facility] ADMIN Address [address] [place] [id number] Assessment No assessment recorded. Plan of Treatment Reminders Order Date Submit Date Provider Last Modified By Organization Details Last Modified Time Details Appointments None record ed. Lab None record ed. Referral None record ed. Procedures None record ed. Surgeries None record ed. Imaging None record ed. Medication Orders None record ed. Patient TargetsNo targets recorded. Patient InstructionsNo instructions recorded. Reason for Referral None Reported. Problems Name Problem SNOMED Code Status Onset Date Resolution Date Notes Provider Name and Address Organization Details Recorded Time Chronic idiopathic constipation 12617207 Active 2021 [facility], [facility] & [place] 2 11:09:04 Problem Notes None recorded. Medical Equipment None Reported. Allergies No known drug allergies Medications Name Sig Start Date Stop Date Status Note LastModified by Organization Details LastModified Time furosemide 40 mg tablet TAKE ONE TABLET BY MOUTH TWICE A DAY FOR HEART FAILURE active Not Available Not Available No t Available prednisone 10 mg tablet active Not Available Not Available Not Available polyethylene glycol 3350 17 gram oral powder packet active Not Available Not Available Not Available azithromycin 250 mg tablet active Not Available Not Available Not Available ibuprofen 800 mg tablet active Not Available Not Available Not Available hydrocodone 5 mg-acetamino phen 325 mg tablet active Not Available Not Available Not Available prednisone 20 mg tablet TAKE ONE TABLET BY MOUTH TWICE DAILY -- FINISH ALL MEDICINE -- --TAKE WITH FOOD-- active Not Available Not Available No t Available sulfamethoxa zole 800 mg-trimethop rim 160 mg tablet active Not Available Not Available Not Available omeprazole 40 mg capsule,dede yed release active Not Available Not Available Not Available acyclovir 800 mg tablet active Not Available Not Available Not Available ondansetron 8 mg disintegrati ng tablet active Not Available Not Available No t Available oxycodone-ac etaminophen 5 mg-325 mg tablet active Not Available Not Available Not Available baclofen 10 mg tablet TAKE 1/2 TABLET BY MOUTH THREE TIMES DAILY --TAKE WITH FOOD-- active Not Available Not Available No t Available benzonatate 100 mg capsule active Not Available Not Available Not Available erythromycin 5 mg/gram (0.5 %) eye ointment active Not Available Not Available Not Available levothyroxin e 150 mcg tablet TAKE 1 TABLET BY MOUTH ONCE DAILY FOR THYROID active Not Available Not Available No t Available losartan 25 mg tablet TAKE ONE TABLET BY MOUTH EVERY DAY FOR BLOOD PRESSURE active Not Available Not Available No t Available bupropion HCl 75 mg tablet TAKE ONE TABLET BY MOUTH TWICE A DAY active Not Available Not Available No t Available diclofenac sodium 75 mg tablet,delay ed release TAKE ONE TABLET BY MOUTH TWICE DAILY --TAKE WITH FOOD-- active Not Available Not Available No t Available furosemide 20 mg tablet active Not Available Not Available Not Available metoprolol succinate ER 25 mg tablet,exten ded release 24 hr TAKE ONE TABLET BY MOUTH EVERY DAY FOR BLOOD PRESSURE active Not Available Not Available No t Available methylpredni solone 4 mg tablets in a dose pack active Not Available Not Available No t Available fluticasone propionate 50 mcg/actuatio n nasal spray,suspen dorita ADMINISTER 1 SPRAY INTO EACH NOSTRIL ONCE DAILY active Not Available Not Available N ot Available spironolacto ne 50 mg tablet TAKE 1/2 TABLET (25MG) BY MOUTH TWICE A DAY FOR HEART FAILURE active Not Available Not Available No t Available Ventolin HFA 90 mcg/actuatio n aerosol inhaler INHALE 1 PUFF EVERY 6 HOURS NEEDED FOR SHORTNESS OF BREATH OR WHEEZING active Not Available Not Available Not Available Symbicort 160 mcg-4.5 mcg/actuatio n HFA aerosol inhaler active Not Available Not Available Not Available desvenlafaxi ne succinate ER 50 mg tablet,exten ded release 24 hr active Not Available Not Available Not Available Gavilyte-C 240 gram-22.72 gram-6.72 gram-5.84 gram oral solution as directed orally 8 oz q15 until empty per office directions active Not Available Not Available N ot Available sodium,potas sium,mag sulfates 17.5 gram-3.13 gram-1.6 gram oral soln Take 6 ounces twice a day by oral route as directed for 1 day, for colonoscopy prep. active Not Available Not Available No t Available Vraylar 1.5 mg capsule active Not Available Not Available N ot Available Vraylar 3 mg capsule active Not Available Not Available Not Available Vitals None Recorded Social History None recorded. Functional Status None recorded. Mental Status None recorded. Family History Nothing Reported. Medical History No medical history recorded. Gynecological HistoryNo gynecological history recorded. Obstetrics History GPAL:G 0 P 0 0 0 0 Past Encounters Encounter ID Performer Location Encounter Start Date Encounter Closed Date Diagnosis/Indication Diagnosis SNOMED-CT Code Diagnosis ICD10 Code Diagnosis Note [id number] Almita Burk NP [facility] [address] [place] [address] 06/19/2022 10:46:55 06/19/2022 11:21:29 Heartburn 44992709 R12 - Continue Omeprazole - EGD scheduled Chronic constipation 236 [id number] K59.09 - Take Miralax once daily. Discussed Miralax bowel purge.- Linzess as needed, has samples. Does not need prescripti on at this time- Dx colonoscop y scheduled- F/U in 3 months- Provided sample prep for colonoscop y as well Health Concerns Section Related Observation LastModified by Organization Detai ls LastModified Time None Recorded Concern Status LastModified by Organization Details LastModified Time None Recorded Advance Directives Directive None Recorded Payers Insurance Date Sequence Insurance Name Policy Number Policy Gray Covered Member ID Gray Member ID Guarantor Name 10/24/2022 1 [facility] (O) Zenaida Antoinesett [id number] Zenaida Antoinesetrodri 12/03/2024 1 [facility] (MEDICAID HMO) Zenaida Bresett [id number] Zenaida Jarvis Notes Date Note Type Note Provider Name and Address Organization Details Recorded Time 06/19/2022 text/html PREVIOUS Patient is a 56 year old female referred to our office related to constipation. Reports she typically goes about twice per week, hard, pellet stool. Reports watery stool intermittently. Has hx of hemorrhoids. Denies hematachezia. Last colonoscopy was in 05/15, has hx of polyps; however, was not cleaned out enough to proceed needs to repeat. Denies nausea, vomiting or hematemesis. Has hx of heartburn, takes Prilosec 20mg, well controlled.CURRENT (06/15) Patient is here today for follow up. Feels heartburn is currently controlled with Omeprazole. Takes Linzess samples prn. Feels constipation is well controlled with Miralax once daily. Denies nausea, vomiting, or hematemesis. Denies diarrhea or hematachezia. Almita Burk, GARNISHMENT SPECIALIST [address], [place], [address], [facility] - [place] & [place] 06/19/2022 11:42:50 OBGyn Episode No OBEpisode recorded.
--- OUTSIDE RECORDS SUMMARY | 2025-03-12 10:28 | XMS_ITS | Clinical Summary ---
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 Name Role Phone German Walter MD Primary Care Provider [phone] Social History Tobacco Use Types Packs/Day Years Used Date Smoking Tobacco: Never Assessed Comments Unknown Sex and Gender Information Value Date Recorded Sex Assigned at Not on file Legal Sex Female 6:12 PM EDT Gender Identity Not on file Sexual Orientation Not on file Plan of Treatment Health Maintenance Due Date Last Done Comments [facility]-Depression Screening 1965 [facility]-/Child/Adol SDOH Screenings 1965 [facility]- SDOH Screenings 1983 [facility]-Adult SDOH Screenings 1983 [facility]-DTaP,Tdap,and Td Vaccine s (1 - Tdap) 1984 [facility]-Hepatitis B Vaccines (1 of 3 - 19+ 3-dose series) 1984 [facility]-Pap Smear 1986 [facility]-Cervical Cancer Screening 1995 [facility]-HPV/Cotest 1995 CT Colonography 2010 Colonoscopy 2010 FIT-DNA 2010 FIT 2010 FOBT 2010 Sigmoidoscopy 2010 [facility]-Colorectal Cancer Screening 2010 [facility]-Pneumococcal Vaccine: 50 + Years (1 of 1 - PCV) 2015 [facility]-Zoster Vaccines (1 of 2) 2015 LZC-HGFAI-25 Vaccine (1 - 20 24-25 season) 2024 [facility]-Influenza Vaccine ([place] n Ended) 2025 HPV Vaccines Aged Out No longer eligi ble based on patient's age to complete this topic [facility]-HIB Vaccines Aged Out No longer e ligible based on patient's age to complete this topic [facility]-Hepatitis A Vaccines Aged Out No longer eligible based on patient's age to complete this topic [facility]-IPV Vaccines Aged Out No longer e ligible based on patient's age to complete this topic [facility]-Rotavirus Vaccines Aged Out No lo nger eligible based on patient's age to complete this topic Insurance [facility] MEDICAID Care Teams Journeyman Power Plant Operator Relationship Specialty Start Date End Date German Walter MD [address] [place] [id number] PCP - General 02/04/21
--- OUTSIDE RECORDS SUMMARY | 2025-03-12 10:28 | XMS_ITS | Continuity of Care Document ---
Author Organization [place] [employer] [facility] Address [address] [place] [address] Assessment No assessment recorded. Plan of Treatment Reminders Order Date Submit Date Provider Last Modified By Organization Details Last Modified Time Details Appointments FOLLOW UP 30 2024 11:30A M Kierra Ratliff PA-C Not available Not available Not available Lab HIV 1 + 2, meaningfu l use set 2024 025 [facility], [address] [place] [address], [id number], 03/09/2025 04:22:00 Referral None recorded. Procedures None recorded. Surgeries None recorded. Imaging None recorded. Medication Orders furosemid e 40 mg tablet 2024 025 [facility], [address] [place] [address], [address], [address], 03/02/2025 11:56:05 Entresto 24 mg-26 mg tablet 2024 025 [facility], [address] [place] [address], [place], [address], 03/02/2025 11:56:03 Patient TargetsNo targets recorded. Patient Instructions Encounter Date Encounter Id Patient Instructions Last Modified By Organization Details Last Modified Time 03/02/2025 [id number] hypothyroidism: care instructions [email or web address] Not available 03/02/2025 14:48:02 heart failure: care instructions Not available 03/02/2025 11:48:23 learning about heart failure [email or web address] Not available 03/02/2025 11:48:23 Reason for Referral None Reported. Problems Name Problem SNOMED Code Status Onset Date Resolution Date Notes Provider Name and Address Organization Details Recorded Time Congestive heart failure 73716253 Active 2024 NATY Solo [address] [place] [address], [phone], [employer] 5 10:39:16 Generalized anxiety disorder 77677441 Active 2024 NATY Solo [address] [place] [address], [address] 8, [employer] 10:39:20 Hypothyroidism 76113307 Active 2024 NATY Solo [address] [place] [address], [address] 8, [employer] 14:47:51 Allergic rhinitis 37239491 Active 2024 NATY Solo [address] [place] [address], [address] 8, [employer] 14:47:47 Mild intermittent asthma 462561361 Active 2024 NATY Solo [address] [place] [address], [address] 8, [employer] 14:47:55 Vitamin D deficiency 77217376 Active 2024 NATY Solo [address] [place] [address], [address] 8, [employer] 14:47:50 Problem Notes None recorded. Procedures Surgical History Date Name Laterality Status Provider Name and Address Organization Details Recorded Time 11/21/19 Most Recent Mammogram completed [employer] 12/01/2024 14:08:29 Colposcopy completed [employer] [facility] [employer] 11/11/2024 16:33:11 Tubal Ligation completed [employer] 11/11/2024 16:33:11 Gallbladder Surgery completed [employer] 11/11/2024 16:33:11 Partial Hysterectomy completed [employer] 11/11/2024 16:33:11 Imaging Results None recorded. Procedure Notes None recorded. Medical Equipment None Reported. Allergies Allergen ID Allergen Name Allergen Category Reaction Reaction Severity Criticality Documentation Date Start Date Code Code System Note Provider Name and Address Organization Details Recorded Time 52073 morphine medicatio n Not available Not available Not available 11/11/2024 7052 RxNorm Gisele Game[employer] [facility], [employer] 16:37:07 Medications Name Sig Start Date Stop Date Status Note LastModified by Organization Details LastModified Time furosemide 40 mg tablet Take 1 tablet every day by oral route for 30 days. 2024 active Not Available Not Available Not Avai lable sulfamethox azole 800 mg-trimetho prim 160 mg tablet 11/11 completed Not Available Not Available Not Available ondansetron 8 mg disintegrat ing tablet 11/11 completed Not Available Not Available Not Available oxycodone-a cetaminophe n 5 mg-325 mg tablet 11/11 completed Not Available Not Available Not Available erythromyci n 5 mg/gram (0.5 %) eye ointment 11/11 completed Not Available Not Available Not Available levothyroxi ne 150 mcg tablet TAKE 1 TABLET BY MOUTH ONCE DAILY 2024 active Not Available Not Available Not Avai lable furosemide 20 mg tablet Take 1 tablet every day by oral route for 30 days. 2024 active Not Available Not Available Not Avai lable ergocalcife rol (vitamin D2) 1,250 mcg (50,000 unit) capsule Take 1 capsule every week by oral route for 90 days. 2024 active Not Available Not Available Not Avai lable fluticasone propionate 50 mcg/actuati on nasal spray,suspe nsion USE 1 SPRAY IN EACH NOSTRIL ONCE DAILY 2024 active Not Available Not Available Not Avai lable Ventolin HFA 90 mcg/actuati on aerosol inhaler INHALE 2 PUFFS EVERY 4-6 HOURS NEEDED FOR SHORTNESS OF AIR 2024 active Not Available Not Available Not Avai lable desvenlafax ine succinate ER 50 mg tablet,exte nded release 24 hr TAKE 1 TABLET BY MOUTH ONCE DAILY FOR ANXIETY 2024 active Not Available Not Available Not Avai lable cholecalcif jae (vitamin D3) 50 mcg (2,000 unit) capsule Take 1 capsule every day by oral route for 90 days. 2024 active Not Available Not Available Not Avai lable sodium,pota ssium,mag sulfates 17.5 gram-3.13 gram-1.6 gram oral soln 12/11 completed Not Available Not Available Not Available Entresto 24 mg-26 mg tablet Take 1 tablet twice a day by oral route for 30 days. 2024 active Not Available Not Available Not Avai lable Vraylar 1.5 mg capsule 11/11 completed Not Available Not Available Not Available Vraylar 3 mg capsule Take 1 capsule every day by oral route for 90 days. 2024 active Not Available Not Available Not Avai lable Vitals Date Recorded Body height Body mass index (BMI) Body weight Oxygen saturation Oxygen saturation in Arterial blood by Pulse oximetry Heart rate Body temperature Systolic blood pressure Diastolic blood pressure Provider Name and Address Organization Details Last Updated DateTime 157.48 cm 40.2 kg/m2 43608.3 2 g 95 % 95 % 86 /min 98.4 [degF] 128 mm[Hg] 84 mm[Hg] [employer] 11:34:54 Social History Question Answer Notes LastModified by Organizat ion Details LastModified Time Tobacco Smoking Status Former Smoker [employer]isele [employer] 11/11/2024 16:33:11 Do You Have An Advance Directive? No Information not available 11/11/2024 Is Your Home Air Conditioned? Yes Information not available 11/11/2024 Do You Wear A Helmet When Biking? Yes Information not available 11/11/2024 Are You Blind Or Do You Have Difficulty Seeing? No Information not available 11/11/2024 What Is Your Level Of Caffeine Consumption? Moderate Information not available 11/11/2024 What Type Of Work Environment Safety Inspector Do You Use? None Information not available 11/11/2024 Have You Been To An Area Known To Be High Risk For COVID-19? No Information not available 11/11/2024 Are You Deaf Or Do You Have Serious Difficulty Hearing? No Information not available 11/11/2024 What Type Of Diet Are You Following? REGULAR Information not available 11/11/2024 Have There Been Any Changes To Your Family Or Social Situation? No Information not available 11/11/2024 When Did You Quit Smoking? 6-10yearssinsahhrzad haas Stop Date 2016 Information not available 03/02/2025 Are There Any Guns Present In Your Home? No Information not available 11/11/2024 Which Of Your Hands Is Dominant? Right Information not available 11/11/2024 What Is Your Home Situation? Other Information not available 11/11/2024 Do You Have A Medical Power Of [place]vas Shrinker? No Information not available 11/11/2024 What Was The Date Of Your Most Recent Tobacco Screening? 03/02/2025 Information not available 03/02/2025 Do You Have Any Pets? Yes Information not available 11/11/2024 Do You Use Protection During Sex? Usually Information not available 11/11/2024 What Is Your Relationship Status? Information not available 11/11/2024 Have You Repeated Any Grades? Yes Information not available 11/11/2024 Do You Use Your Seat Belt Or Car Seat Routinely? Yes Information not available 11/11/2024 Are You Sexually Active? Yes Information not available 11/11/2024 Do You Have Any Siblings? Yes Information not available 11/11/2024 Do You Have Smoke And Carbon Monoxide Detectors In Your Home? Yes Information not available 11/11/2024 At What Age Did You Start Smoking Tobacco? 32 Information not available 03/02/2025 Are You Passively Exposed To Smoke? No Information not available 11/11/2024 Are There Any Smokers In Your House? No Information not available 11/11/2024 Do You Participate In Social Media? Yes Information not available 11/11/2024 Do You Use Sunscreen Routinely? Yes Information not available 11/11/2024 Has Tobacco Cessation Counseling Been Provided? No Information not available 11/11/2024 Have You Recently Traveled Abroad? No Information not available 11/11/2024 Do You Have Difficulty Walking Or Climbing Stairs? No Information not available 11/11/2024 Are You Currently In School? No Information not available 11/11/2024 What Contraceptive Method Was Reported At Start Of This Visit? Female Sterilization Information not available 12/01/2024 Do You Have Any Dietary Restrictions? No Information not available 11/11/2024 Sex: Unknown Functional Status Question Answer Note LastModified by Organizat ion Details LastModified Time Do you use any illicit or recreational drugs? No Information not available 11/11/2024 Do you or have you ever used any other forms of tobacco or nicotine? No Information not available 11/11/2024 What is your level of alcohol consumption? Occasional Information not available 11/11/2024 Are you currently employed? No Information not available 11/11/2024 Do you have transportation difficulties? No Information not available 11/11/2024 Are you able to walk? YESWOREST Information not available 11/11/2024 Do you have difficulty doing errands alone? Yes Information not available 11/11/2024 Are you able to care for yourself? Yes Information n ot available 11/11/2024 Do you have difficulty dressing or bathing? No Information not available 11/11/2024 What is your exercise level? Occasional Information not available 11/11/2024 Mental Status Question Answer Note LastModified by Organizat ion Details LastModified Time Do you feel stressed (tense, restless, nervous, or anxious, or unable to sleep at night)? [id number] Information not available 11/11/2024 Do you have difficulty concentrating, remembering or making decisions? Yes Information no t available 11/11/2024 Are you or have you been involved with bullying? No Information not available 11/11/2024 Family History Relationship Description Onset Age of this Age Resolved Age Notes LastModified by Organization Details LastModified Time Mother Anxiety disorder Not available 2024 16:33:10 Mother Arthritis Not available 11/11/2024 16:33:10 Mother Hypertensive disorder Not available 2024 16:33:10 Mother Heart disease Not available 2024 16:33:10 Mother Epilepsy Not available 0 11/11/2024 16:33:10 Sister Malignant tumor of breast Not available 2024 16:33:10 Sister Arthritis Not available 11/11/2024 16:33:10 Father Malignant neoplasm of lung Not available 2024 16:33:11 Medical History Condition Response Allergies (Food, seasonal, environmental ) Y Depression Y Anxiety Disorder Y Acid Reflux (GERD) Y Thyroid Problems Y Congestive Heart Failure (CHF) Y Asthma Y Gynecological History Statement/Question Response Menses Monthly N HPV Vaccine N Date of Last Pap Smear Current Control Method Hysterectom y Most Recent Mammogram 11/21/2024 Age at First Child 18 Obstetrics History GPAL:G 2 P 2 0 0 2 Type Value Multiple Births 0 Full Term 2 Induced 0 Spontaneous 0 Premature 0 Living 2 Ectopics 0 Total 2 Past Encounters Encounter ID Performer Location Encounter Start Date Encounter Closed Date Diagnosis/Indication Diagnosis SNOMED-CT Code Diagnosis ICD10 Code Diagnosis Note [id number] NATY Solo [facility] [address] [place], [place] [address] [address] 03/02/2025 11:26:43 03/02/2025 11:56:33 HIV screening 480274331 Z11.4 Congestive heart failure 77960764 I50.9 Generalize d anxiety disorder 69918229 F41.1 Doing well on Pristiq Hypothyroidism 60042284 E03.9 Health Concerns Section Related Observation LastModified by Organization Detai ls LastModified Time None Recorded Concern Status LastModified by Organization Details LastModified Time None Recorded Payers Encounter Date Sequence Insurance Name Policy Number Policy Gray Covered Member ID Gray Member ID Guarantor Name 03/02/2025 1 [facility] (MEDICAID HMO) Zenaida Jarvis [id number] Zenaida Jarvis Notes Date Note Type Note Provider Name and Address Organization Details Recorded Time 03/02/2025 text/html Patient presents for followup.Histor y of CHF. Swelling is worse. Weight is up. She is short of breath. Uses Lasix daily. Has never been on Entresto.Histor y of hypothyroidism. DUe for labs.History of anxiety. States that Pristiq is helping. NATY Solo [address] [place] [address], [id number], [facility] [employer] 03/02/2025 14:49:55 OBGyn Episode No OBEpisode recorded.
--- OUTSIDE RECORDS SUMMARY | 2025-03-12 10:28 | XMS_ITS | Data Portability ---
Author Organization [employer] [place] - [place]SE Address [address] [place] [address] Assessment No assessment recorded. Plan of Treatment Reminders Order Date Submit Date Provider Last Modified By Organization Details Last Modified Time Details Appointments FOLLOW UP 30 2024 11:30A Tawanda Ratliff PA-C Not available Not available Not available Lab HIV 1 + 2, meaningfu l use set [address] [facility], [address] [place] [address], [address], 03/09/2025 04:22:00 Hepatitis C IgG Ab, qual, serum [address] [facility], [address] [place] [address], [address], 12/15/2024 16:08:05 TSH, ultra-sen sitive, serum [address] [facility], [address] [place] [address], [address], 12/15/2024 16:08:05 HIV 1 + 2, meaningfu l use set [address] [facility], [address] [place] [address], [address], 12/15/2024 16:08:06 lipid panel, serum [address] [facility], [address] [place] [address], [address], 12/15/2024 16:08:04 CMP, serum or plasma 2024 025 [facility] ([place]), [address] [place], [address], 12/15/2024 16:08:04 CBC w/ auto diff 2024 025 [facility]), [address] [place], [address], 12/15/2024 16:08:03 vitamin D, 25-hydrox y, total, serum 2024 025 [facility]), [address] [place], [address], 12/15/2024 16:08:06 Referral gynecolog ist referral 2024 025 GILBERT Kailyn Escudero DO, [address], [address], [place], [address], 01/16/2025 09:22:53 Procedures colonosco py screening (PROC) - first available appt 2024 025 Fred Guidry MD, [address] [facility], [address], [place], [address], 12/12/2024 15:00:02 Surgeries None recorded. Imaging MAMMO, screening , digital, bilateral 2024 025 [facility] ([facility]), [address], [place], [address], 11/28/2024 10:36:20 Medication Orders furosemid e 40 mg tablet 2024 025 [facility], [address], [address], [place], [address], 03/02/2025 11:56:05 Entresto 24 mg-26 mg tablet 2024 025 [facility], [address], [address], [place], [address], 03/02/2025 11:56:03 fluticaso ne propionat e 50 mcg/actua tion nasal spray,pradeep pension 2024 025 [facility], [address] [place] [address], [address], [place], [address], 12/11/2024 10:50:12 Pristiq 50 mg tablet,ex tended release 2024 025 [facility], [address] [place] [address], [address], [place], [address], 12/11/2024 10:50:17 Vraylar 3 mg capsule 2024 025 [facility], [address] [place] [address], [address], [place], [address], 12/11/2024 10:50:14 Ventolin HFA 90 mcg/actua tion aerosol inhaler 2024 025 [facility], [address] [place] [address], [address], [place], [address], 12/11/2024 10:50:13 levothyro xine 150 mcg tablet 2024 025 [facility], [address] [place] [address], [address], [place], [address], 12/11/2024 10:50:11 furosemid e 20 mg tablet 2024 025 [facility], [address] [place] [address], [address], [place], [address], 12/11/2024 10:50:15 Pristiq 50 mg tablet,ex tended release 2024 025 [facility], [address] [place] [address], [address], [place], [address], 11/11/2024 17:02:57 furosemid e 20 mg tablet 2024 025 [facility], [address] [facility], [address], [place], [address], 11/11/2024 17:02:56 Patient TargetsNo targets recorded. Patient Instructions Encounter Date Encounter Id Patient Instructions Last Modified By Organization Details Last Modified Time 11/11/2024 [id number] mammogram: about this test [email or web address] Not available 11/11/2024 16:59:45 body mass index: care instructions [email or web address] Not available 11/11/2024 17:15:54 learning about healthy weight [email or web address] Not available 11/11/2024 17:15:54 heart failure: care instructions [email or web address] Not available 11/11/2024 16:56:02 learning about heart failure [email or web address] Not available 11/11/2024 16:56:02 12/11/2024 [id number] allergies: care instructions [email or web address] Not available 12/11/2024 10:43:07 low back arthritis: exercises [email or web address] Not available 12/11/2024 10:43:07 hypothyroidism: care instructions [email or web address] Not available 12/11/2024 10:43:07 HIV testing: car e instructions [email or web address] Not available 12/11/2024 11:12:20 body mass index: care instructions [email or web address] Not available 12/11/2024 10:43:19 learning about healthy weight [email or web address] Not available 12/11/2024 10:43:19 03/02/2025 [id number] hypothyroidism: care instructions [email or web address] Not available 03/02/2025 14:48:02 heart failure: care instructions [email or web address] Not available 03/02/2025 11:48:23 learning about heart failure Not available 03/02/2025 11:48:23 Reason for Referral Wool Brusher Referral for Gy necologic examination Referring Physician: Kierra Ratliff, Family Medicine, Encounter Date: 11/11/2024 Results Created Date Observation Date Name Description Value Unit Range Abnormal Flag Note LastModifiedBy Organization Detail LastModifiedTime 12/12/19 25 12/12/2024 CBC WITH DIFFE RENTI AL/PL ATELE T WBC 4.4 x10e3 /uL 3.4-10 .8 normal Not Available [facility] ([facility]) [address] [place], [address], 12/15/2024 16:08:03 12/12/19 25 12/12/2024 CBC WITH DIFFE RENTI AL/PL ATELE T RBC 5.10 x10e6 /uL 3.77-5 .28 normal Not Available [facility] ([facility]) [address] [place], [address], 12/15/2024 16:08:03 12/12/19 25 12/12/2024 CBC WITH DIFFE RENTI AL/PL ATELE T hemoglobin 15.3 g/dL 11.1-1 5.9 normal Not Available [facility] ([facility]) [address] [place], [address], 12/15/2024 16:08:03 12/12/19 25 12/12/2024 CBC WITH DIFFE RENTI AL/PL ATELE T hematocrit 44.4 % 34.0-4 6.6 normal Not Available [facility] ([facility]) [address] [place], [address], 12/15/2024 16:08:03 12/12/19 25 12/12/2024 CBC WITH DIFFE RENTI AL/PL ATELE T MCV 87 fL 79-97 normal Not Available [facility] ([facility]) [address] [place], [address], 12/15/2024 16:08:03 12/12/19 25 12/12/2024 CBC WITH DIFFE RENTI AL/PL ATELE T MCH 30.0 pg 26.6-3 3.0 normal Not Available [facility] ([facility]) [address] [place], [address], 12/15/2024 16:08:03 12/12/19 25 12/12/2024 CBC WITH DIFFE RENTI AL/PL ATELE T MCHC 34.5 g/dL 31.5-3 5.7 normal Not Available [facility] ([facility]) [address] [facility], [place], [address], 12/15/2024 16:08:03 12/12/19 25 12/12/2024 CBC WITH DIFFE RENTI AL/PL ATELE T RDW 12.9 % 11.7-1 5.4 Not Available [facility] ([facility]) [address] [facility], [place], [address], 12/15/2024 16:08:03 12/12/19 25 12/12/2024 CBC WITH DIFFE RENTI AL/PL ATELE T platelets 253 x10e3 /uL 150-45 0 normal Not Available [facility] ([facility]) [address] [facility], [place], [address], 12/15/2024 16:08:03 12/12/19 25 12/12/2024 CBC WITH DIFFE RENTI AL/PL ATELE T neutrophils 65 % not estab. normal Not Available [facility] ([facility]) [address] [facility], [place], [address], 12/15/2024 16:08:03 12/12/19 25 12/12/2024 CBC WITH DIFFE RENTI AL/PL ATELE T lymphs 26 % not estab. normal Not Available [facility] ([facility]) [address] [facility], [place], [address], 12/15/2024 16:08:03 12/12/19 25 12/12/2024 CBC WITH DIFFE RENTI AL/PL ATELE T monocytes 5 % not estab. normal Not Available [facility] ([facility]) [address] [facility], [place], [address], 12/15/2024 16:08:03 12/12/19 25 12/12/2024 CBC WITH DIFFE RENTI AL/PL ATELE T eos 3 % not estab. normal Not Available [facility] ([facility]) [address] [facility], [place], [address], 12/15/2024 16:08:03 12/12/19 25 12/12/2024 CBC WITH DIFFE RENTI AL/PL ATELE T basos 1 % not estab. 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 0 normal Not Available [facility] ([facility]) [address] [facility], [place], [address], 12/15/2024 16:08:03 12/12/19 25 12/12/2024 CBC WITH DIFFE RENTI AL/PL ATELE T lymphs (absolute) 1.1 x10e3 /uL 0.7-3. 1 normal Not Available [facility] ([facility]) [address] [place], [address], 12/15/2024 16:08:03 12/12/19 25 12/12/2024 CBC WITH DIFFE RENTI AL/PL ATELE T monocytes(ab solute) 0.2 x10e3 /uL 0.1-0. 9 normal Not Available [facility] ([facility]) [address] [place], [address], 12/15/2024 16:08:03 12/12/19 25 12/12/2024 CBC WITH DIFFE RENTI AL/PL ATELE T eos (absolute) 0.1 x10e3 /uL 0.0-0. 4 normal Not Available [facility] ([facility]) [address] [facility], [place], [address], 12/15/2024 16:08:03 12/12/19 25 12/12/2024 CBC WITH DIFFE RENTI AL/PL ATELE T baso (absolute) 0.0 x10e3 /uL 0.0-0. 2 normal Not Available [facility] ([facility]) [address] [facility], [place], [address], 12/15/2024 16:08:03 12/12/19 25 12/12/2024 CBC WITH DIFFE RENTI AL/PL ATELE T immature granulocytes 0 % not estab. Not Available [facility] ([facility]) [address] [facility], [place], [address], 12/15/2024 16:08:03 12/12/19 25 12/12/2024 CBC WITH DIFFE RENTI AL/PL ATELE T immature grans (abs) 0.0 x10e3 /uL 0.0-0. 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 METAB OLIC PANEL (14) glucose 99 mg/dL 70-99 normal Not Available [facility] ([facility]) [address] [place], [address], 12/15/2024 16:08:04 12/12/19 25 12/12/2024 COMP. METAB OLIC PANEL (14) BUN 10 mg/dL 6-24 normal Not Available [facility] ([facility]) [address] [place], [address], 12/15/2024 16:08:04 12/12/19 25 12/12/2024 COMP. METAB OLIC PANEL (14) creatinine 0.65 mg/dL 0.57-1 .00 normal Not Available [facility] ([facility]) [address] [place], [address], 12/15/2024 16:08:04 12/12/19 25 12/12/2024 COMP. METAB OLIC PANEL (14) eGFR 101 mL/mi n/1.7 3 >59 normal Not Available [facility] ([facility]) [address] [facility], [place], [address], 12/15/2024 16:08:04 12/12/19 25 12/12/2024 COMP. METAB OLIC PANEL (14) BUN/creatini ne ratio 15 9-23 normal Not Available [facility] ([facility]) [address] [place], [address], 12/15/2024 16:08:04 12/12/19 25 12/12/2024 COMP. METAB OLIC PANEL (14) sodium 141 mmol/ L 134-14 4 normal Not Available [facility] ([facility]) [address] [place], [address], 12/15/2024 16:08:04 12/12/19 25 12/12/2024 COMP. METAB OLIC PANEL (14) potassium 4.3 mmol/ L 3.5-5. 2 normal Not Available [facility] ([facility]) [address] [place], [address], 12/15/2024 16:08:04 12/12/19 25 12/12/2024 COMP. METAB OLIC PANEL (14) chloride 103 mmol/ L 96-106 normal Not Available [facility] ([facility]) [address] [place], [address], 12/15/2024 16:08:04 12/12/19 25 12/12/2024 COMP. METAB OLIC PANEL (14) carbon dioxide, total 25 mmol/ L 20-29 normal Not Available [facility] ([facility]) [address] [place], [address], 12/15/2024 16:08:04 12/12/19 25 12/12/2024 COMP. METAB OLIC PANEL (14) calcium 9.3 mg/dL 8.7-10 .2 normal Not Available [facility] ([facility]) [address] [place], [address], 12/15/2024 16:08:04 12/12/19 25 12/12/2024 COMP. METAB OLIC PANEL (14) protein, total 6.6 g/dL 6.0-8. 5 normal Not Available [facility] ([facility]) [address] [place], [address], 12/15/2024 16:08:04 12/12/19 25 12/12/2024 COMP. METAB OLIC PANEL (14) albumin 4.3 g/dL 3.8-4. 9 normal Not Available [facility] ([facility]) [address] [place], [address], 12/15/2024 16:08:04 12/12/19 25 12/12/2024 COMP. METAB OLIC PANEL (14) globulin, total 2.3 g/dL 1.5-4. 5 Not Available [facility] ([facility]) [address] [place], [address], 12/15/2024 16:08:04 12/12/19 25 12/12/2024 COMP. METAB OLIC PANEL (14) bilirubin, total 0.9 mg/dL 0.0-1. 2 normal Not Available [facility] ([facility]) [address] [place], [address], 12/15/2024 16:08:04 12/12/19 25 12/12/2024 COMP. METAB OLIC PANEL (14) alkaline phosphatase 91 IU/L 44-121 normal Not Available [facility] ([facility]) [address] [place], [address], 12/15/2024 16:08:04 12/12/19 25 12/12/2024 COMP. METAB OLIC PANEL (14) AST (SGOT) 17 IU/L 0-40 normal Not Available [facility] ([facility]) [address] [place], [address], 12/15/2024 16:08:04 12/12/19 25 12/12/2024 COMP. METAB OLIC PANEL (14) ALT (SGPT) 22 IU/L 0-32 normal Not Available [facility] ([facility]) [address] [place], [address], 12/15/2024 16:08:04 12/12/19 25 12/12/2024 LIPID PANEL cholesterol, total 192 mg/dL 100-19 9 normal Not Available [facility] ([facility]) [address] [place], [address], 12/15/2024 16:08:04 12/12/19 25 12/12/2024 LIPID PANEL triglyceride s 77 mg/dL 0-149 normal Not Available [facility] ([facility]) [address] [place], [address], 12/15/2024 16:08:04 12/12/19 25 12/12/2024 LIPID PANEL HDL cholesterol 62 mg/dL >39 normal Not Available [facility] ([facility]) [address] [facility], [place], [address], 12/15/2024 16:08:04 12/12/19 25 12/12/2024 LIPID PANEL VLDL cholesterol don 14 mg/dL 5-40 Not Available [facility] ([facility]) [address] [place], [address], 12/15/2024 16:08:04 12/12/19 25 12/12/2024 LIPID PANEL LDL chol calc ([facility]) 116 mg/dL 0-99 above high normal Not Available [facility] ([facility]) [address] [facility], [place], [address], 12/15/2024 16:08:04 12/12/19 25 12/12/2024 LIPID PANEL LDL calc comment: 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 Not Available [facility] ([facility]) [address] [facility], [place], [address], 12/15/2024 16:08:04 12/12/19 25 12/12/2024 HCV ANTIB ZIA CASCA DE(PC R/GEN O) HCV Ab Non Reacti ve non reacti ve Not Available [facility] ([facility]) [address] [facility], [place], [address], 12/15/2024 16:08:05 12/12/19 25 12/12/2024 HCV ANTIB ZIA CASCA DE(PC R/GEN O) interpretati on: Commen t Not infec lilia with HCV unles s early or acute infec tion is suspe cted (whic h may be delay ed in an immun ocomp romis ed indiv idual ), or other evide nce exist s to indic ate HCV infec tion. Not Available [facility] ([facility]) [address] [facility], [place], [address], 12/15/2024 16:08:05 12/12/19 25 12/12/2024 TSH TSH 0.066 uIU/m L 0.450- 4.500 below low normal Not Available [facility] ([facility]) [address] [facility], [place], [address], 12/15/2024 16:08:05 12/12/19 25 12/12/2024 VITAM IN D, 25-HY DROXY vitamin D, 25-hydroxy 20.2 NG/mL 30.0-1 00.0 below low normal Vitam in D defic iency has been defin ed by the Insti tute of Medic ine and an Endoc rine Socie ty pract ice guide line as a level of serum 25-OH vitam in D less than 20 ng/mL (1,2) . The Endoc rine Socie ty went on to furth er defin e vitam in D insuf ficie ncy as a level betwe en 21 and 29 ng/mL (2). 1. IOM (Inst itute of Medic ine). 2010. Dietlisa ry refer ence mary ann es for calci um and D. Efrain joseph [place]: [facility] Press . 2. Martha carranza MF, Tj ey [place], Vero off-F errar i PETE, et al. Evalu ation , treat ment, and preve ntion of vitam in D defic iency : an Endoc rine Socie ty clini don pract ice guide line. JCEM. 2010; 96(7) :1911 -30. Not Available [facility] ([facility]) [address] [facility], [place], [address], 12/15/2024 16:08:06 12/12/19 25 12/15/2024 HIV AB/P2 4 AG WITH REFLE X HIV Ab/P24 Ag screen COMMEN T Test not perfo rmed. Unabl e to perfo rm testi ng becau se a requi red dedic ated, unope louie tube was not recei rosalia. Not Available [facility] ([facility]) [address] [facility], [place], [address], 12/15/2024 16:08:06 12/12/19 25 12/15/[address] PROBL EM request problem COMMEN T Test not perfo rmed. Unabl e to perfo rm testi ng becau se a requi red dedic ated, unope louie tube was not recei rosalia. TEST: [id number] HIV Ab/p2 4 Ag with Refle x Not Available [facility] ([facility]) [address] [facility], [place], [address], 12/15/2024 16:08:07 03/02/20 25 03/03/2025 THYRO ID PANEL thyroxine (T4) 11.0 ug/dL 4.5-12 .0 normal Not Available [facility] ([facility]) [address] [place], [address], 03/05/2025 09:08:18 03/02/20 25 03/03/2025 THYRO ID PANEL T3 uptake 28 % 24-39 normal Not Available [facility] ([facility]) [address] [place], [address], 03/05/2025 09:08:18 03/02/20 25 03/03/2025 THYRO ID PANEL free thyroxine index 3.1 1.2-4. 9 normal Not Available [facility] ([facility]) [address] [place], [address], 03/05/2025 09:08:18 03/02/20 25 03/05/2025 THYRO ID STIM IMMUN OGLOB ULIN thyroid stim immunoglobul in <0.10 IU/L 0.00-0 .55 Not Available [facility] ([facility]) [address] [place], [address], 03/05/2025 09:08:18 03/02/20 25 03/03/2025 HIV AB/P2 4 AG WITH REFLE X HIV Ab/P24 Ag screen Non Reacti ve non reacti ve Not Available [facility] ([facility]) [address] [place], [address], 03/05/2025 09:08:19 11/29/19 25 11/21/2024 MAMMO , scree laexa, digit al, bilat eral No observ ation record ed. [facility] (Sched[facility]) [address], [place], [address], 12/02/2024 17:34:34 Result Notes None recorded. Problems Name Problem SNOMED Code Status Onset Date Resolution Date Notes Provider Name and Address Organization Details Recorded Time Congestive heart failure 49486499 Active 2024 NATY Solo [address] [place] [address], [address], [employer] 5 10:39:16 Generalized anxiety disorder 72419237 Active 2024 NATY Solo [address] [place] [address], [address], [employer] 10:39:20 Hypothyroidism 95551744 Active 2024 NATY Solo [address] [place] [address], [address], [employer] 14:47:51 Allergic rhinitis 82759540 Active 2024 NATY Solo [address] [place] [address], [address] 8, [employer] 14:47:47 Mild intermittent asthma 153957088 Active 2024 NATY Solo [address] [place] [address], [address] 8, [employer] 14:47:55 Vitamin D deficiency 26937581 Active 2024 NATY Solo [address] [place] [address], [address], [employer] 14:47:50 Problem Notes None recorded. Procedures Surgical History Date Name Laterality Status Provider Name and Address Organization Details Recorded Time 11/21/19 25 Most Recent Mammogram completed [employer] 12/01/2024 14:08:29 Colposcopy completed [facility] [employer] 11/11/2024 16:33:11 Tubal Ligation completed [facility] [employer] 11/11/2024 16:33:11 Gallbladder Surgery completed [facility] [employer] 11/11/2024 16:33:11 Partial Hysterectomy completed [facility] [employer] 11/11/2024 16:33:11 Imaging Results None recorded. Procedure Notes None recorded. Medical Equipment None Reported. Allergies Allergen ID Allergen Name Allergen Category Reaction Reaction Severity Criticality Documentation Date Start Date Code Code System Note Provider Name and Address Organization Details Recorded Time 68644 morphine medicatio n Not available Not available Not available 11/11/2024 7052 RxNorm [facility] [employer] 16:37:07 Medications Name Sig Start Date [...] Not Avai lable Vitals Date Recorded Body weight Body mass index (BMI) Body height Oxygen saturation Oxygen saturation in Arterial blood by Pulse oximetry Heart rate Body temperature Systolic blood pressure Diastolic blood pressure Systolic blood pressure Diastolic blood pressure Systolic blood pressure Diastolic blood pressure Provider Name and Address Organization Details Last Updated DateTime 5 92958.2 5 g 37.1 kg/m2 157.48 cm 96 % 96 % 72 /min 98.1 [degF] 162 mm[Hg] 90 mm[Hg] 150 mm[Hg] 90 mm[Hg] 138 mm[Hg] 88 mm[Hg] [facility] [employer] 5 16:43:56 Date Recorded Body height Body mass index (BMI) Body weight Body temperature Heart rate Oxygen saturation Oxygen saturation in Arterial blood by Pulse oximetry Systolic blood pressure Diastolic blood pressure Provider Name and Address Organization Details Last Updated DateTime 5 157.48 cm 37.3 kg/m2 32613.5 6 g 98.3 [degF] 66 /min 95 % 95 % 126 mm[Hg] 84 mm[Hg] [employer] 5 10:29:05 Date Recorded Body height Body mass index (BMI) Body weight Oxygen saturation Oxygen saturation in Arterial blood by Pulse oximetry Heart rate Body temperature Systolic blood pressure Diastolic blood pressure Provider Name and Address Organization Details Last Updated DateTime 157.48 cm 40.2 kg/m2 66517.3 2 g 95 % 95 % 86 /min 98.4 [degF] 128 mm[Hg] 84 mm[Hg] [employer] 5 11:34:54 Social History Question Answer Notes LastModified by Organizat ion Details LastModified Time Tobacco Smoking Status Former Smoker [employer] 11/11/2024 16:33:11 Do You Have An Advance [...] Information not available 11/11/2024 What Type Of Prototype Fabricator Do You Use? None Information not available [...] available 11/11/2024 When Did You Quit Smoking? 6-10yearssinshahrzad haas Stop Date 2016 Information not available 03/02/2025 Are There Any Guns Present In Your Home? No Information not available 11/11/2024 Which Of Your Hands Is Dominant? Right Information not available 11/11/2024 What Is Your Home Situation? Other Information not available 11/11/2024 Do You Have A Medical Power Of Regional Sales Engineer? No Information not available 11/11/2024 What Was [...] anxious, or unable to sleep at night)? [id number] Information not available 11/11/2024 Do you have [...] Response Allergies (Food, seasonal, environmental ) Y Anxiety Disorder Y Congestive Heart Failure (CHF) Y Acid Reflux (GERD) Y Thyroid Problems Y Depression Y Asthma Y Gynecological History Statement/Question Response [...] SNOMED-CT Code Diagnosis ICD10 Code Diagnosis Note [id number] NATY Solo [facility] [address] [place] [id number] 2 11/11/2024 16:31:16 11/11/2024 16:59:54 Screening colonoscopy 725765537 Z12.11 Screening mammography 24 551670 Z12.31 Gynecologi c examination 98419809 Z01.419 Congestive heart failure 16870401 I50.9 Generalize d anxiety disorder 50992074 F41.1 Trial PristiqRTC 3 weeksTo ER if chest pain, shortness of breath, etc Body mass index 30+ - obesity 922447492 Z68.37 [id number] NATY Solo [address] [address] 12/11/2024 10:23:11 12/11/2024 12:57:02 Hypothyroidism 47178566 E03.9 Allergic rhinitis 639115 04 J30.9 Mild inter mittent asthma 358213699 J45.20 Heart failure 28582876 I 50.32 Gastroesop hageal reflux disease without esophagitis 223536146 K21.9 Spondylosi s without myelopathy 55621313 M47.816 Generalize d anxiety disorder 64035648 F41.1 Doing well on Pristiq Congestive heart failure 43710111 I50.9 Body mass index 30+ - obesity 351295945 Z68.37 HIV screening 474270595 Z11.4 Hepatitis C screening 41 3948066 Z11.59 [id number] NATY Solo [facility] [address] [place] [address] 03/02/2025 11:26:43 03/02/2025 11:56:33 HIV screening 550985743 Z11.4 Congestive heart failure 24788958 I50.9 Generalize d anxiety disorder 48239790 F41.1 Doing well on Pristiq Hypothyroidism 07509869 E03.9 Health Concerns Section Related Observation LastModified by Organization Detai ls LastModified Time None Recorded Concern Status LastModified by Organization Details LastModified Time None Recorded Advance Directives Directive N: Payers Insurance Date Sequence Insurance Name Policy Number Policy Gray Covered Member ID Gray Member ID Guarantor Name 02/27/2025 1 [employer] [place] ([place]) Zenaida Jarvis [id number] Zenaida Simona Notes Date Note Type Note Provider Name and Address Organization Details Recorded Time 11/11/2024 text/html Patient presents to establish care at [facility].Patient has a history of CHF. She had been doing extremely well after weight loss. Not currently taking diuretics. Has had swelling and fluid retention the past few weeks.Has had worsening anxiety the past few weeks. Feels heavy in her chest. Dreads going out and doing things. Does not think this is chest pain. Has had extensive cardiac workup including cath. Thinks it is anxiety. Vraylar helped tremendously in the past but is really struggling. NATY Solo [address] [place], [address], [facility] [employer]. 11/11/2024 17:19:07 12/11/2024 text/html Patient presents for followup. Recently started Pristiq. States that is is helping. Still has some anxiety in crowds, etc but is able to use her other coping mechanisms to calm herself down and nancy what she needs to do, such as get groceries, etc. Denies side effects. NATY Solo [address] [place], [address], [employer]. 12/11/2024 17:20:06 03/02/2025 text/html Patient presents for followup.History of CHF. Swelling is worse. Weight is up. She is short of breath. Uses Lasix daily. Has never been on Entresto.History of hypothyroidism. DUe for labs.History of anxiety. States that Pristiq is helping. NATY Solo [address] [place] [address], [phone], [facility] [employer] 03/02/2025 14:49:55 OBGyn Episode No OBEpisode recorded.
--- NOTE | 2025-03-12 10:47 | EXP.PAIN.PRO ---
Procedure Date: 03/12/25 Time: 10:47 Anesthesiologist:: Hilda Naik APRN Complications:: None Pre-procedure Diagnosis:: Degenerative disc disease of lumbar spine, chronic pain syndrome Post-procedure Diagnosis:: Same Indications for Procedure:: Patient is a pleasant 59-year-old female who presents today for intrathecal adjustment and reprogram. Today she rates her pain 6 out of 10. She denies any new trauma or injury. She states that she just feels like her pump could use additional adjustment. Patient is currently managed with fentanyl 200 mcg/mL with a daily dose of 239.8 mcg/day. She denies any side effects. Her Brian has been reviewed and is appropriate. Physical Exam: General: Alert and oriented x3, no acute distress, pleasant and cooperative Lungs: Respirations even and unlabored, symmetrical chest expansion Eyes: PERRL Musculoskeletal: Flexion and extension of lumbar [spine] somewhat guarded secondary to pain, [antalgic gait noted] Neurological: Speech clear, no gross sensory deficit Procedure Details:: Informed consent was obtained and the risk and benefits of the procedure were explained to the patient. Patient did have noninvasive monitoring was placed including noninvasive blood pressure cuff and pulse oximeter. Patient's pump was interrogated and was reprogrammed to increase by 15% to fentanyl 276.0 mcg/day. The patient tolerated the procedure well with no complications. Plan and Disposition:: Patient tolerated the procedure well with no complications and was discharged neurologically intact. We will also give her a tentative 2-week appointment for additional adjustment that she can cancel if she ends up not needing. I will send in a 3-month supply of baclofen 10 mg 3 times daily. Patient will return to clinic on or before their next intrathecal refill date. We will see the patient back in the clinic at the next intrathecal refill. Patient has been instructed to contact the clinic with any concerns before the next appointment. Dr. Capone has reviewed this note and agrees with this plan of care. This note was dictated using voice recognition software and make contain errors or omissions. -- It Is medically necessary for this patient to continue to have their intrathecal pump refilled at regular intervals. This patient had an intrathecal pain pump implanted after meeting criteria of chronic intractable pain for greater than 3 months and failing conservative treatments. Patient has committed and been compliant to the treatment plan and all planned follow up care. Since implantation of the intrathecal pain pump, the patient has had decreased pain and been more functional. Oral medications have been reduced including intake of oral opioids. Patient continues to do well with intrathecal therapy with decrease in pain symptoms and increase in functional status. Stopping intrathecal medications can lead to life threatening withdrawal, seizures, cardiac arrest, severe pain, and possible . Pumps that are not refilled at regular intervals can be damages and cause and need for replacement. We continually titrate dose and concentration to optimize pain relief and function. We are limited in concentration for certain drugs to safely deliver medications through the pump and stay within the recommendations from the Polyanalgesic Consensus Committee Guidelines. Depending on dose and concentration these pumps may need to be refilled sooner than 3 months as we titrate. A UDS is needed to verify patient's compliance with our office pain contract. This is ordered based off specific treatments related to chronic pain with the potential to abuse certain medications.
[2025-03-12 11:26] VITALS: BP 118/71; PULSE 80; RESP 14; O2SAT 100; BMI 36.6
== END 2025-03-12 23:59 | disposition home or self-care (01) ==
PROVIDERS: PCP Physician Assistant; Visit Provider Nurse Practitioner Family
DX: M51.369 Other intervertebral disc degeneration, lumbar region without mention of lumbar back pain or lower extremity pain (principal); G89.4 Chronic pain syndrome
CPT/HCPCS: 99212; G0463

== ENCOUNTER 2025-03-25 14:47 | Outpatient (POV) | payer MEDICAID, SELFPAY ==
--- OUTSIDE RECORDS SUMMARY | 2025-03-25 14:49 | XMS_ITS | Continuity of Care Document ---
Author Organization [place] [facility] [employer] [employer] [facility] Address [address] [place] [address] Assessment No assessment recorded. Plan of Treatment Reminders Order Date Submit Date Provider Last Modified By Organization Details Last Modified Time Details Appointments FOLLOW UP 30 2024 11:30A M Kierra Ratliff PA-C Not available Not available Not available Lab HIV 1 + 2, meaningfu l use set 2024 025 [email or web address], [address] [place] [address], [address], 03/12/2025 12:02:22 Referral None recorded. Procedures None recorded. Surgeries None recorded. Imaging None recorded. Medication Orders furosemid e 40 mg tablet 2024 025 [facility], [address] [place] [address], [address], 03/02/2025 11:56:05 Entresto 24 mg-26 mg tablet 2024 025 [facility], [address] [place] [address], [place], [address], 03/02/2025 11:56:03 Patient TargetsNo targets recorded. Patient Instructions Encounter Date Encounter Id Patient Instructions Last Modified By Organization Details Last Modified Time 03/02/2025 [id number] hypothyroidism: care instructions [email or web address] Not available 03/02/2025 14:48:02 heart failure: care instructions [email or web address] Not available 03/02/2025 11:48:23 learning about heart failure [email or web address] Not available 03/02/2025 11:48:23 Reason for Referral None Reported. Problems Name Problem SNOMED Code Status Onset Date Resolution Date Notes Provider Name and Address Organization Details Recorded Time Congestive heart failure 38983141 Active 2024 NATY Solo [address] [place] [address], [phone], [employer] 5 10:39:16 Generalized anxiety disorder 69881026 Active 2024 NATY Solo [address] [place] [address], [address], [employer] 5 10:39:20 Hypothyroidism 64871843 Active 2024 NATY Solo [address] [place] [address], [address], [employer] 14:47:51 Allergic rhinitis 16167003 Active 2024 NATY Solo [address] [place] [address], [address], [employer] 14:47:47 Mild intermittent asthma 652518708 Active 2024 NATY Solo [address] [place] [address], [address], [employer] 14:47:55 Vitamin D deficiency 12768965 Active 2024 NATY Solo [address] [place] [address], [address], [employer] 14:47:50 Problem Notes None recorded. Procedures Surgical History Date Name Laterality Status Provider Name and Address Organization Details Recorded Time 11/21/19 Most Recent Mammogram completed [email or web address] 12/01/2024 14:08:29 Colposcopy completed [email or web address] [facility] [employer] 11/11/2024 16:33:11 Tubal Ligation completed [employer] 11/11/2024 16:33:11 Gallbladder Surgery completed [employer] 11/11/2024 16:33:11 Partial Hysterectomy completed Gisele Gamez [employer], [employer] 11/11/2024 16:33:11 Imaging Results None recorded. Procedure Notes None recorded. Medical Equipment None Reported. Allergies Allergen ID Allergen Name Allergen Category Reaction Reaction Severity Criticality Documentation Date Start Date Code Code System Note Provider Name and Address Organization Details Recorded Time 97152 morphine medicatio n Not available Not available Not available 11/11/2024 7052 RxNorm Gisele Gamez [facility], [employer] 16:37:07 Medications Name Sig Start Date [...] Last Updated DateTime 157.48 cm 40.2 kg/m2 38620.3 2 g 95 % 95 % 86 /min 98.4 [degF] 128 mm[Hg] 84 mm[Hg] Gisele Gamez [employer] 11:34:54 Social History Question Answer Notes LastModified by Organizat ion Details LastModified Time Tobacco Smoking Status Former Smoker Gisele myles [employer] 11/11/2024 16:33:11 Do You Have An [...] Information not available 11/11/2024 What Type Of Paediatric Thoracic Physician Do You Use? None Information not available [...] Do You Have A Medical Power Of Heddler Tier? No Information not available 11/11/2024 What Was [...] anxious, or unable to sleep at night)? [id number] Information not available 11/11/2024 Do you have [...] SNOMED-CT Code Diagnosis ICD10 Code Diagnosis Note [id number] NATY Solo [facility] [address] [place] [address] 03/02/2025 11:26:43 03/02/2025 11:56:33 HIV screening 585031938 Z11.4 Congestive heart failure 43453651 I50.9 Generalize d anxiety disorder 03272552 F41.1 Doing well on Pristiq Hypothyroidism 82139165 E03.9 Health Concerns Section Related Observation LastModified by Organization Detai ls LastModified Time None Recorded Concern Status LastModified by Organization Details LastModified Time None Recorded Payers Encounter Date Sequence Insurance Name Policy Number Policy Gray Covered Member ID Gray Member ID Guarantor Name 03/02/2025 1 [facility] (MEDICAID HMO) Zenaida Jarvis [id number] Zenaida Jarvis Notes Date Note Type Note Provider Name and Address Organization Details Recorded Time 03/02/2025 text/html Patient presents for followup.Histor y of CHF. Swelling is worse. Weight is up. She is short of breath. Uses Lasix daily. Has never been on Entresto.Histor y of hypothyroidism. DUe for labs.History of anxiety. States that Pristiq is helping. NATY Solo [address] [place] [address], [address], [facility] [employer] 03/02/2025 14:49:55 OBGyn Episode No OBEpisode recorded.
--- OUTSIDE RECORDS SUMMARY | 2025-03-25 14:50 | XMS_ITS | Data Portability ---
Author Organization [employer] [facility] Address [address] [place] [address] Assessment No assessment recorded. Plan of Treatment Reminders Order Date Submit Date Provider Last Modified By Organization Details Last Modified Time Details Appointments FOLLOW UP 30 2024 11:30A Tawanda Ratliff PA-C Not available Not available Not available Lab HIV 1 + 2, meaningfu l use set [address]), [address] [place] [address], [address], 03/12/2025 12:02:22 Hepatitis C IgG Ab, qual, serum 2024 025 [facility]), [address] [place], [address], 12/15/2024 16:08:05 TSH, ultra-sen sitive, serum 2024 025 [facility]), [address] [place], [address], 12/15/2024 16:08:05 HIV 1 + 2, meaningfu l use set 2024 025 [facility], [address] [place], [address], 12/15/2024 16:08:06 lipid panel, serum 2024 025 [facility], [address] [place] [address], [address], 12/15/2024 16:08:04 CMP, serum or plasma 2024 025 [facility]), [address] [place], [address], 12/15/2024 16:08:04 CBC w/ auto diff 2024 025 [facility]), [address] [place], [address], 12/15/2024 16:08:03 vitamin D, 25-hydrox y, total, serum 2024 025 [facility]), [address] [place], [address], 12/15/2024 16:08:06 Referral gynecolog ist referral 2024 025 [place] Kailyn Escudero DO, [address], [address], [place], [address], 01/16/2025 09:22:53 Procedures colonosco py screening (PROC) - first available appt 2024 025 [email or web address] Fred Guidry MD, [address] [facility], [address], [place], [address], 12/12/2024 15:00:02 Surgeries None recorded. Imaging MAMMO, screening , digital, bilateral 2024 025 [facility] (Counts Include [facility]), [address], [place], [address], 11/28/2024 10:36:20 Medication Orders furosemid e 40 mg tablet 2024 025 [facility], [address], [address], [place], [address], 03/02/2025 11:56:05 Entresto 24 mg-26 mg tablet 2024 025 [facility], [address], [address], [place], [address], 03/02/2025 11:56:03 fluticaso ne propionat e 50 mcg/actua tion nasal spray,pradeep pension 2024 025 [facility], [address] [place] [address], [address], [place], [address], 12/11/2024 10:50:12 Pristiq 50 mg tablet,ex tended release 2024 025 [facility], [address] [place] [address], [address], [place], [address], 12/11/2024 10:50:17 Vraylar 3 mg capsule 2024 025 [facility], [address] [place] [address], [facility], [place], [address], 12/11/2024 10:50:14 Ventolin HFA 90 mcg/actua tion aerosol inhaler 2024 025 [facility], [address] [place] [address], [facility], [place], [address], 12/11/2024 10:50:13 levothyro xine 150 mcg tablet 2024 025 [facility], [address] [place] [address], [address], [place], [address], 12/11/2024 10:50:11 furosemid e 20 mg tablet 2024 025 [facility], [address] [place] [address], [address], [place], [address], 12/11/2024 10:50:15 Pristiq 50 mg tablet,ex tended release 2024 025 [facility], [address] [place] [address], [address], [place], [address], 11/11/2024 17:02:57 furosemid e 20 mg tablet [address] [place] [address] Pharmacy, [address] [place] [address], [address], [place], [address], 11/11/2024 17:02:56 Patient TargetsNo targets recorded. Patient Instructions Encounter Date Encounter Id Patient Instructions Last Modified By Organization Details Last Modified Time 11/11/2024 [id number] mammogram: about this test [email or web address] Not available 11/11/2024 16:59:45 body mass index: care instructions Not available 11/11/2024 17:15:54 learning about healthy weight [email or web address] Not available 11/11/2024 17:15:54 heart failure: care instructions Not available 11/11/2024 16:56:02 learning about heart failure [email or web address] Not available 11/11/2024 16:56:02 12/11/2024 [id number] allergies: care instructions [email or web address] Not available 12/11/2024 10:43:07 low back arthritis: exercises [email or web address] Not available 12/11/2024 10:43:07 hypothyroidism: care instructions Not available 12/11/2024 10:43:07 HIV testing: car e instructions [email or web address] Not available 12/11/2024 11:12:20 body mass index: care instructions [email or web address] Not available 12/11/2024 10:43:19 learning about healthy weight [email or web address] Not available 12/11/2024 10:43:19 03/02/2025 [id number] hypothyroidism: care instructions [email or web address] Not available 03/02/2025 14:48:02 heart failure: care instructions Not available 03/02/2025 11:48:23 learning about heart failure Not available 03/02/2025 11:48:23 Reason for Referral Upward Bound Director Referral for Gy necologic examination Referring Physician: Kierra Ratliff, Family Medicine, Encounter Date: 11/11/2024 Results Created Date Observation Date Name Description Value Unit Range Abnormal Flag Note LastModifiedBy Organization Detail LastModifiedTime 12/12/1912/12/2024 CBC WITH DIFFE RENTI AL/PL ATELE T WBC 4.4 x10e3 /uL 3.4-10 .8 normal Not Available [facility] ([facility]) [address] [place], [address], 12/15/2024 16:08:03 12/12/19 25 12/12/2024 CBC WITH DIFFE RENTI AL/PL ATELE T RBC 5.10 x10e6 /uL 3.77-5 .28 normal Not Available [facility] ([facility]) [address] [place], [address], 12/15/2024 16:08:03 12/12/19 25 12/12/2024 CBC WITH DIFFE RENTI AL/PL ATELE T hemoglobin 15.3 g/dL 11.1-1 5.9 normal Not Available [facility] ([facility]) [address] [place], [address], 12/15/2024 16:08:03 12/12/19 25 12/12/2024 CBC WITH DIFFE RENTI AL/PL ATELE T hematocrit 44.4 % 34.0-4 6.6 normal Not Available [facility] ([facility]) [address] [place], [address], 12/15/2024 16:08:03 12/12/19 25 12/12/2024 CBC WITH DIFFE RENTI AL/PL ATELE T MCV 87 fL 79-97 normal Not Available [facility] ([facility]) [address] [place], [address], 12/15/2024 16:08:03 12/12/19 25 12/12/2024 CBC WITH DIFFE RENTI AL/PL ATELE T MCH 30.0 pg 26.6-3 3.0 normal Not Available [facility] ([facility]) [address] [place], [address], 12/15/2024 16:08:03 12/12/19 25 12/12/2024 CBC WITH DIFFE RENTI AL/PL ATELE T MCHC 34.5 g/dL 31.5-3 5.7 normal Not Available [facility] ([facility]) [address] [place], [address], 12/15/2024 16:08:03 12/12/19 25 12/12/2024 CBC WITH DIFFE RENTI AL/PL ATELE T RDW 12.9 % 11.7-1 5.4 Not Available [facility] ([facility]) [address] [facility], [place], [address], 12/15/2024 16:08:03 12/12/19 25 12/12/2024 CBC WITH DIFFE RENTI AL/PL ATELE T platelets 253 x10e3 /uL 150-45 0 normal Not Available [facility] ([facility]) [address] [place], [address], 12/15/2024 16:08:03 12/12/19 25 12/12/2024 CBC WITH DIFFE RENTI AL/PL ATELE T neutrophils 65 % not estab. normal Not Available [facility] ([facility]) [address] [place], [address], 12/15/2024 16:08:03 12/12/19 25 12/12/2024 CBC WITH DIFFE RENTI AL/PL ATELE T lymphs 26 % not estab. normal Not Available [facility] ([facility]) [address] [place], [address], 12/15/2024 16:08:03 12/12/19 25 12/12/2024 CBC WITH DIFFE RENTI AL/PL ATELE T monocytes 5 % not estab. normal Not Available [facility] ([facility]) [address] [place], [address], 12/15/2024 16:08:03 12/12/19 25 12/12/2024 CBC WITH DIFFE RENTI AL/PL ATELE T eos 3 % not estab. normal Not Available [facility] ([facility]) [address] [facility], [place], [address], 12/15/2024 16:08:03 12/12/19 25 12/12/2024 CBC WITH DIFFE RENTI AL/PL ATELE T basos 1 % not estab. normal Not Available [facility] ([facility]) [address] [facility], [place], [address], 12/15/2024 16:08:03 12/12/19 25 12/12/2024 CBC WITH DIFFE RENTI AL/PL ATELE T immature cells PHARMACY BENEFITS COORDINATOR Not Available [facility] ([facility]) [address] [place], [address], 12/15/2024 16:08:03 12/12/19 25 12/12/2024 CBC WITH DIFFE RENTI AL/PL ATELE T neutrophils (absolute) 2.9 x10e3 /uL 1.4-7. 0 normal Not Available [facility] ([facility]) [address] [place], [address], 12/15/2024 16:08:03 12/12/19 25 12/12/2024 CBC WITH DIFFE RENTI AL/PL ATELE T lymphs (absolute) 1.1 x10e3 /uL 0.7-3. 1 normal Not Available [facility] ([facility]) [address] [place], [address], 12/15/2024 16:08:03 12/12/19 25 12/12/2024 CBC WITH DIFFE RENTI AL/PL ATELE T monocytes(ab solute) 0.2 x10e3 /uL 0.1-0. 9 normal Not Available [facility] ([facility]) [address] [place], [address], 12/15/2024 16:08:03 12/12/19 25 12/12/2024 CBC WITH DIFFE RENTI AL/PL ATELE T eos (absolute) 0.1 x10e3 /uL 0.0-0. 4 normal Not Available [facility] ([facility]) [address] [facility], [place], [address], 12/15/2024 16:08:03 12/12/19 25 12/12/2024 CBC WITH DIFFE RENTI AL/PL ATELE T baso (absolute) 0.0 x10e3 /uL 0.0-0. 2 normal Not Available [facility] ([facility]) [address] [facility], [place], [address], 12/15/2024 16:08:03 12/12/19 25 12/12/2024 CBC WITH DIFFE RENTI AL/PL ATELE T immature granulocytes 0 % not estab. Not Available [facility] ([facility]) [address] [facility], [place], [address], 12/15/2024 16:08:03 12/12/19 25 12/12/2024 CBC WITH DIFFE RENTI AL/PL ATELE T immature grans (abs) 0.0 x10e3 /uL 0.0-0. 1 Not Available [facility] ([facility]) [address] [place], [address], 12/15/2024 16:08:03 12/12/19 25 12/12/2024 CBC WITH DIFFE RENTI AL/PL ATELE T NRBC PHARMACY BENEFITS COORDINATOR Not Available [facility] ([facility]) [address] [facility], [place], [address], 12/15/2024 16:08:03 12/12/19 25 12/12/2024 CBC WITH DIFFE RENTI AL/PL ATELE T hematology comments: PHARMACY BENEFITS COORDINATOR Not Available [facility] ([facility]) [address] [place], [address], 12/15/2024 16:08:03 12/12/19 25 12/12/2024 COMP. METAB OLIC PANEL (14) glucose 99 mg/dL 70-99 normal Not Available [facility] ([facility]) [address] [facility] [place], [address], 12/15/2024 16:08:04 12/12/19 25 12/12/2024 COMP. METAB OLIC PANEL (14) BUN 10 mg/dL 6-24 normal Not Available [facility] ([facility]) [address] [facility] [place], [address], 12/15/2024 16:08:04 12/12/19 25 12/12/2024 COMP. METAB OLIC PANEL (14) creatinine 0.65 mg/dL 0.57-1 .00 normal Not Available [facility] ([facility]) [address] [facility] [place], [address], 12/15/2024 16:08:04 12/12/19 25 12/12/2024 COMP. METAB OLIC PANEL (14) eGFR 101 mL/mi n/1.7 3 >59 normal Not Available [facility] ([facility]) [address] [facility], [place], [address], 12/15/2024 16:08:04 12/12/19 25 12/12/2024 COMP. METAB OLIC PANEL (14) BUN/creatini ne ratio 15 9-23 normal Not Available [facility] ([facility]) [address] [facility] [place], [address], 12/15/2024 16:08:04 12/12/19 25 12/12/2024 COMP. METAB OLIC PANEL (14) sodium 141 mmol/ L 134-14 4 normal Not Available [facility] ([facility]) [address] [facility] [place], [address], 12/15/2024 16:08:04 12/12/19 25 12/12/2024 COMP. METAB OLIC PANEL (14) potassium 4.3 mmol/ L 3.5-5. 2 normal Not Available [facility] ([facility]) [address] [facility] [place], [address], 12/15/2024 16:08:04 12/12/19 25 12/12/2024 COMP. METAB OLIC PANEL (14) chloride 103 mmol/ L 96-106 normal Not Available [facility] ([facility]) [address] [facility] [place], [address], 12/15/2024 16:08:04 12/12/19 25 12/12/2024 COMP. METAB OLIC PANEL (14) carbon dioxide, total 25 mmol/ L 20-29 normal Not Available [facility] ([facility]) [address] [facility] [place], [address], 12/15/2024 16:08:04 12/12/19 25 12/12/2024 COMP. METAB OLIC PANEL (14) calcium 9.3 mg/dL 8.7-10 .2 normal Not Available [facility] ([facility]) [address] [facility] [place], [address], 12/15/2024 16:08:04 12/12/19 25 12/12/2024 COMP. METAB OLIC PANEL (14) protein, total 6.6 g/dL 6.0-8. 5 normal Not Available [facility] ([facility]) [address] [facility] [place], [address], 12/15/2024 16:08:04 12/12/19 25 12/12/2024 COMP. METAB OLIC PANEL (14) albumin 4.3 g/dL 3.8-4. 9 normal Not Available [facility] ([facility]) [address] [facility] [place], [address], 12/15/2024 16:08:04 12/12/19 25 12/12/2024 COMP. METAB OLIC PANEL (14) globulin, total 2.3 g/dL 1.5-4. 5 Not Available [facility] ([facility]) [address] [facility] [place], [address], 12/15/2024 16:08:04 12/12/19 25 12/12/2024 COMP. METAB OLIC PANEL (14) bilirubin, total 0.9 mg/dL 0.0-1. 2 normal Not Available [facility] ([facility]) [address] [place], [address], 12/15/2024 16:08:04 12/12/19 25 12/12/2024 COMP. METAB OLIC PANEL (14) alkaline phosphatase 91 IU/L 44-121 normal Not Available [facility] ([facility]) [address] [place], [address], 12/15/2024 16:08:04 12/12/19 25 12/12/2024 COMP. METAB OLIC PANEL (14) AST (SGOT) 17 IU/L 0-40 normal Not Available [facility] ([facility]) [address] [place], [address], 12/15/2024 16:08:04 12/12/19 25 12/12/2024 COMP. METAB OLIC PANEL (14) ALT (SGPT) 22 IU/L 0-32 normal Not Available [facility] ([facility]) [address] [place], [address], 12/15/2024 16:08:04 12/12/19 25 12/12/2024 LIPID PANEL cholesterol, total 192 mg/dL 100-19 9 normal Not Available [facility] ([facility]) [address] [place], [address], 12/15/2024 16:08:04 12/12/19 25 12/12/2024 LIPID PANEL triglyceride s 77 mg/dL 0-149 normal Not Available [facility] ([facility]) [address] [place], [address], 12/15/2024 16:08:04 12/12/19 25 12/12/2024 LIPID PANEL HDL cholesterol 62 mg/dL >39 normal Not Available [facility] ([facility]) [address] [facility], [place], [address], 12/15/2024 16:08:04 12/12/19 25 12/12/2024 LIPID PANEL VLDL cholesterol don 14 mg/dL 5-40 Not Available [facility] ([facility]) [address] [place], [address], 12/15/2024 16:08:04 12/12/19 25 12/12/2024 LIPID PANEL LDL chol calc ([facility]) 116 mg/dL 0-99 above high normal Not Available [facility] ([facility]) [address] [place], [address], 12/15/2024 16:08:04 12/12/19 25 12/12/2024 LIPID PANEL LDL calc comment: PHARMACY BENEFITS COORDINATOR Not Available [facility] ([facility]) [address] [facility], [place], [address], 12/15/2024 16:08:04 12/12/19 25 12/12/2024 HCV ANTIB ZIA CASCA DE(PC R/GEN O) HCV Ab Non Reacti ve non reacti ve Not Available [facility] ([facility]) [address] [facility], [place], [address], 12/15/2024 16:08:05 12/12/19 25 12/12/2024 HCV ANTIB ZIA CASCA DE(PC R/GEN O) interpretati on: Commen t Not infec lilia with HCV unles s early or acute infec tion is suspe cted (whic h may be delay ed in an immun ocomp romis ed indiv idual ), or other evide nce exist s to indic ate HCV infec tion. Not Available [facility] ([facility]) [address] [facility], [place], [address], 12/15/2024 16:08:05 12/12/19 25 12/12/2024 TSH TSH 0.066 uIU/m L 0.450- 4.500 below low normal Not Available [facility] ([facility]) [address] [facility], [place], [address], 12/15/2024 16:08:05 12/12/19 25 12/12/2024 VITAM IN [...] IOM (Inst itute of Medic ine). 2010. Sajan ry refer ence mary ann es for calci um and D. Efrain joseph [place]: [facility] . 2. Martha carranza MF, Tj olson [place], Vero off-F errar i PETE, et al. Evalu ation , treat ment, and preve ntion of vitam in D defic iency : an Endoc rine Socie ty clini don pract ice guide line. JCEM. 2010; 96(7) :1911 -30. Not Available [facility] ([facility]) [address] [facility], [place], [address], 12/15/2024 16:08:06 12/12/19 25 12/15/2024 HIV AB/P2 4 AG WITH REFLE X HIV Ab/P24 Ag screen COMMEN T Test not perfo rmed. Unabl e to perfo rm testi ng becau se a requi red dedic ated, unope louie tube was not recei rosalia. Not Available [facility] ([facility]) [address] [facility], [place], [address], 12/15/2024 16:08:06 12/12/19 25 12/15/[address] PROBL EM request problem COMMEN T Test not perfo rmed. Unabl e to perfo rm testi ng becau se a requi red dedic ated, unope louie tube was not recei rosalia. TEST: 65120 5 HIV Ab/p2 4 Ag with Refle x Not Available [facility] ([facility]) [address] [facility], [place], [address], 12/15/2024 16:08:07 03/02/20 25 03/03/2025 THYRO ID PANEL thyroxine (T4) 11.0 ug/dL 4.5-12 .0 normal Not Available [facility] ([facility]) [address] [place], [address], 03/05/2025 09:08:18 03/02/20 25 03/03/2025 THYRO ID PANEL T3 uptake 28 % 24-39 normal Not Available [facility] ([facility]) [address] [place], [address], 03/05/2025 09:08:18 03/02/20 25 03/03/2025 THYRO ID PANEL free thyroxine index 3.1 1.2-4. 9 normal Not Available [facility] ([facility]) [address] [place], [address], 03/05/2025 09:08:18 03/02/2003/05/2025 THYRO ID STIM IMMUN OGLOB ULIN thyroid stim immunoglobul in <0.10 IU/L 0.00-0 .55 Not Available [facility] ([facility]) [address] [place], [address], 03/05/2025 09:08:18 03/02/20 25 03/03/2025 HIV AB/P2 4 AG WITH REFLE X HIV Ab/P24 Ag screen Non Reacti ve non reacti ve Not Available [facility] ([facility]) [address] [place], [address], 03/05/2025 09:08:19 0307/20 25 11/21/2024 MAMMO , scree alexa, digit al, bilat eral No observ ation record ed. [facility] (Scheduling) [address], [place], [address], 12/02/2024 17:34:34 Result Notes None recorded. Problems Name Problem SNOMED Code Status Onset Date Resolution Date Notes Provider Name and Address Organization Details Recorded Time Congestive heart failure 84608912 Active 2024 NATY Solo [address] [place] [address], [address], [employer] 10:39:16 Generalized anxiety disorder 74102622 Active 2024 NATY Solo [address] [place] [address], [address], [employer] 10:39:20 Hypothyroidism 37394307 Active 2024 NATY Solo [address] [place] [address], [address], [employer] 14:47:51 Allergic rhinitis 60440486 Active 2024 NATY Solo [address] [place] [address], [address] 8, [employer] 14:47:47 Mild intermittent asthma 145407787 Active 2024 NATY Solo [address] [place] [address], [address] 8, [employer] 14:47:55 Vitamin D deficiency 00475404 Active 2024 NATY Solo [address] [place] [address], [address] 8, [employer] 14:47:50 Problem Notes None recorded. Procedures Surgical History Date Name Laterality Status Provider Name and Address Organization Details Recorded Time 11/21/19 25 Most Recent Mammogram completed [employer] 12/01/2024 14:08:29 Colposcopy completed [facility] [employer] 11/11/2024 16:33:11 Tubal Ligation completed [facility] [employer] 11/11/2024 16:33:11 Gallbladder Surgery completed [facility] [employer] 11/11/2024 16:33:11 Partial Hysterectomy completed [facility] [employer] 11/11/2024 16:33:11 Imaging Results None recorded. Procedure Notes None recorded. Medical Equipment None Reported. Allergies Allergen ID Allergen Name Allergen Category Reaction Reaction Severity Criticality Documentation Date Start Date Code Code System Note Provider Name and Address Organization Details Recorded Time 70188 morphine medicatio n Not available Not available Not available 11/11/2024 7052 RxNorm [facility] [employer] 16:37:07 Medications Name Sig Start Date [...] Address Organization Details Last Updated DateTime 5 06788.2 5 g 37.1 kg/m2 157.48 cm 96 % 96 % 72 /min 98.1 [degF] 162 mm[Hg] 90 mm[Hg] 150 mm[Hg] 90 mm[Hg] 138 mm[Hg] 88 mm[Hg] [facility] [employer] [facility]. 16:43:56 Date Recorded Body height Body mass index (BMI) Body weight Body temperature Heart rate Oxygen saturation Oxygen saturation in Arterial blood by Pulse oximetry Systolic blood pressure Diastolic blood pressure Provider Name and Address Organization Details Last Updated DateTime 5 157.48 cm 37.3 kg/m2 50698.5 6 g 98.3 [degF] 66 /min 95 % 95 % 126 mm[Hg] 84 mm[Hg] [employer] 5 10:29:05 Date Recorded Body height Body mass index (BMI) Body weight Oxygen saturation Oxygen saturation in Arterial blood by Pulse oximetry Heart rate Body temperature Systolic blood pressure Diastolic blood pressure Provider Name and Address Organization Details Last Updated DateTime 5 157.48 cm 40.2 kg/m2 68331.3 2 g 95 % 95 % 86 /min 98.4 [degF] 128 mm[Hg] 84 mm[Hg] [employer] 5 11:34:54 Social History Question Answer Notes LastModified by Organizat ion Details LastModified Time Tobacco Smoking Status Former Smoker [employer] 11/11/2024 16:33:11 Do You Have An Advance [...] Information not available 11/11/2024 What Type Of Crayon Sorting Machine Feeder Do You Use? None Information not available [...] Do You Have A Medical Power Of Manager Analytical? No Information not available 11/11/2024 What Was [...] anxious, or unable to sleep at night)? [id number] Information not available 11/11/2024 Do you have [...] available 2024 16:33:11 Medical History Condition Response Anxiety Disorder Y Allergies (Food, seasonal, environmental ) Y Congestive Heart Failure (CHF) Y Acid [...] SNOMED-CT Code Diagnosis ICD10 Code Diagnosis Note [id number] NATY Solo [address] [address] 11/11/2024 16:31:16 11/11/2024 16:59:54 Screening colonoscopy 506535725 Z12.11 Screening mammography 24 075627 Z12.31 Gynecologi c examination 48127430 Z01.419 Congestive heart failure 30828357 I50.9 Generalize d anxiety disorder 73308605 F41.1 Trial PristiqRTC 3 weeksTo ER if chest pain, shortness of breath, etc Body mass index 30+ - obesity 997806611 Z68.37 [id number] NATY Solo [address] [address] 12/11/2024 10:23:11 12/11/2024 12:57:02 Hypothyroidism 82242397 E03.9 Allergic rhinitis 744719 04 J30.9 Mild inter mittent asthma 466567025 J45.20 Heart failure 92009768 I 50.32 Gastroesop hageal reflux disease without esophagitis 678642637 K21.9 Spondylosi s without myelopathy 95116435 M47.816 Generalize d anxiety disorder 19449687 F41.1 Doing well on Pristiq Congestive heart failure 52268817 I50.9 Body mass index 30+ - obesity 495855300 Z68.37 HIV screening 989882830 Z11.4 Hepatitis C screening 41 4327178 Z11.59 [id number] NATY Solo [address] [address] 03/02/2025 11:26:43 03/02/2025 11:56:33 HIV screening 140049972 Z11.4 Congestive heart failure 95396423 I50.9 Generalize d anxiety disorder 97074376 F41.1 Doing well on Pristiq Hypothyroidism 42428661 E03.9 Health Concerns Section Related Observation LastModified by Organization Detai ls LastModified Time None Recorded Concern Status LastModified by Organization Details LastModified Time None Recorded Advance Directives Directive N: Payers Insurance Date Sequence Insurance Name Policy Number Policy Gray Covered Member ID Gray Member ID Guarantor Name 02/27/2025 1 [facility] (MEDICAID HMO) Zenaida Jarvis [id number] Zenaida Jarvis Notes Date Note Type Note Provider Name and Address Organization Details Recorded Time 11/11/2024 text/html Patient presents to establish care at [facility].Patient has a history of CHF. She [...] but is really struggling. NATY Solo [address] [place], [address], [employer] [place]. 11/11/2024 17:19:07 12/11/2024 text/html Patient presents for followup. Recently started Pristiq. States that is is helping. Still has some anxiety in crowds, etc but is able to use her other coping mechanisms to calm herself down and nancy what she needs to do, such as get groceries, etc. Denies side effects. NATY Solo [address] [place], [address], [employer], [place]. 12/11/2024 17:20:06 03/02/2025 text/html Patient presents for followup.History of CHF. Swelling is worse. Weight is up. She is short of breath. Uses Lasix daily. Has never been on Entresto.History of hypothyroidism. DUe for labs.History of anxiety. States that Pristiq is helping. NATY [address] [place], [address], [facility] [employer] 03/02/2025 14:49:55 OBGyn Episode No OBEpisode recorded.
--- OUTSIDE RECORDS SUMMARY | 2025-03-25 14:50 | XMS_ITS | Data Portability ---
Author Organization [facility] ADMIN Address [address] [place] [id number] Assessment No assessment recorded. Plan of Treatment [...] Organization Details Recorded Time Chronic idiopathic constipation [id number] Active 2021 Roxann Cárdenas [facility] & [place] 11:09:04 Problem Notes None recorded. Medical Equipment [...] SNOMED-CT Code Diagnosis ICD10 Code Diagnosis Note [id number] Almita Burk NP [facility] [address], Located Within [facility] [address] [place] [address] 06/19/2022 10:46:55 06/19/2022 11:21:29 Heartburn [id number] R12 - Continue Omeprazole - EGD scheduled Chronic constipation 236 750996 K59.09 - Take Miralax once daily. Discussed [...] Gray Member ID Guarantor Name 10/24/2022 1 [facility] (O) Zenaida Antoinesett [id number] Zenaida Bresett 12/03/2024 1 [facility] (MEDICAID HMO) Zenaida Bresett [id number] Zenaida Elinasett Notes Date Note Type Note Provider Name [...] hematemesis. Denies diarrhea or hematachezia. Almita Burk, RANGER AIDE [address], [place], [address], [facility] [place] & [place] 06/19/2022 11:42:50 OBGyn Episode No OBEpisode recorded.
--- OUTSIDE RECORDS SUMMARY | 2025-03-25 14:50 | XMS_ITS | Clinical Summary ---
Author Organization Healthcare Address [address] [place] [address] Care Team Providers Care Outpatient Interviewing Clerk Name Role Phone German Walter MD Primary Care Provider [phone] Social History Tobacco Use Types Packs/Day Years [...] 2015 [facility]-Zoster Vaccines (1 of 2) 2015 XWB-[id number]-11 Vaccine (1 - 20 24-25 season) 2024 [facility]-Influenza Vaccine (#1) 2025 HPV Vaccines Aged Out No longer [...] patient's age to complete this topic Insurance [facility] MEDICA[facility] Care Teams Outpatient Interviewing Clerk Relationship Specialty Start Date End Date German Walter MD [address] [place] [id number] PCP - General 02/04/21
[2025-03-25 15:10] VITALS: BP 128/88; PULSE 89; RESP 14; O2SAT 97; BMI 36.6
--- NOTE | 2025-03-25 15:58 | P.PCN_ITS ---
Procedure Date: 03/25/25 Time: 15:37 Anesthesiologist:: Hilda Naik APRN Complications:: None Pre-procedure Diagnosis:: Degenerative disc disease of lumbar spine, chronic pain syndrome Post-procedure Diagnosis:: Same Indications for Procedure:: Patient is a pleasant 59-year-old female who presents today for pump adjustment. She does rated her pain a 7 out of 10. She denies any new trauma or injury. Patient does state that she did notice improvement with her last pump increase but still feels like it could use additional adjustment. Patient is currently managed with fentanyl 2000 micrograms per mL with a daily dose of 276 mcg/day. She denies any side effects. Her Brian has been reviewed and is appropriate. Physical Exam: General: Alert and oriented x3, no acute distress, pleasant and cooperative Lungs: Respirations even and unlabored, symmetrical chest expansion Eyes: PERRL Musculoskeletal: Flexion and extension of lumbar [spine] somewhat guarded secondary to pain, [antalgic gait noted] Neurological: Speech clear, no gross sensory deficit Procedure Details:: Informed consent was obtained and the risk and benefits of the procedure were explained to the patient. Patient did have noninvasive monitoring was placed i ncluding noninvasive blood pressure cuff and pulse oximeter. Patient's pump was interrogated and was reprogrammed to fentanyl 317.1 mcg/day. The patient tolerated the procedure well with no complications. Plan and Disposition:: Patient tolerated the procedure well with no complications and was discharged neurologically intact. Patient will return to clinic on or before their next intrathecal refill date. We will see the patient back in the clinic at the next intrathecal refill. Patient has been instructed to contact the clinic with any concerns before the next appointment. Dr. Capone has reviewed this note and agrees with this plan of care. This note was dictated using voice recognition software and make contain errors or omissions. -- It Is medically necessary for this patient to continue to have their intrathecal pump refilled at regular intervals. This patient had an intrathecal pain pump implanted after meeting criteria of chronic intractable pain for greater than 3 months and failing conservative treatments. Patient has committed and been compliant to the treatment plan and all planned follow up care. Since implantation of the intrathecal pain pump, the patient has had decreased pain and been more functional. Oral medications have been reduced including intake of oral opioids. Patient continues to do well with intrathecal therapy with decrease in pain symptoms and increase in functional status. Stopping intrathecal medications can lead to life threatening withdrawal, seizures, cardiac arrest, severe pain, and possible . Pumps that are not refilled at regular intervals can be damages and cause and need for replacement. We continually titrate dose and concentration to optimize pain relief and function. We are limited in concentration for certain drugs to safely deliver medications through the pump and stay within the recommendations from the Polyanalgesic Consensus Committee Guidelines. Depending on dose and concentration these pumps may need to be refilled sooner than 3 months as we titrate. A UDS is needed to verify patient's compliance with our office pain contract. This is ordered based off specific treatments related to chronic pain with the potential to abuse certain medications.
== END 2025-03-25 23:59 | disposition home or self-care (01) ==
PROVIDERS: PCP Physician Assistant; Visit Provider Nurse Practitioner Family
DX: M51.369 Other intervertebral disc degeneration, lumbar region without mention of lumbar back pain or lower extremity pain (principal); G89.4 Chronic pain syndrome
CPT/HCPCS: 99212; G0463